=== PATIENT | female | born 1975 | race Caucasian/White ===

== ENCOUNTER 2018-04-07 14:46 | Emergency (ER) | payer MEDICAID, SELFPAY ==
[2018-04-07 14:46] VITALS: BP 109/69; PULSE 86; RESP 16; TEMP 37.7; O2SAT 99; BMI 31.5
--- NOTE | 2018-04-07 15:54 | ED.VISSUMM ---
- ER Visit Summary Date of Service: 04/07/18 Chief Complaint: Dental pain History of Present Illness: The patient is a [address] Rojo and Dr. Zurita. She reports that she had a root canal of her left mandibular second molar in June 2017 at the [facility]. She reports that she began having pain in that area yesterday. She was placed on clindamycin and is now had 6 doses. States that this morning the area is swollen. She describes a throbbing pain is 10 out of 10 severity. Is worsened by eating. It is partially relieved by heating pad. She denies any fever, chills, nausea, or vomiting. Physical Examination: Vitals: Stable. Afebrile. Mouth: No trismus. No edema of the floor of the mouth. Pain with percussion of left mandibular second molar. There is no focal abscess. She does have soft tissue swelling of the left face. General: A&O x 3. NAD. Cardiovascular exam: Regular rate and rhythm, no murmur, rub or gallop. Respiratory exam: Clear to auscultation bilaterally. No wheezes or stridor. Abdominal exam: Soft, nontender, nondistended, normal bowel sounds. No peritoneal signs. Extremity: No clubbing, cyanosis, or edema. Emergency Department Course and Treatment: An OAR[facility] report was obtained which show she is only had one prescription for opiates in the past year despite going to pain management. Treatment Plan: Patient is treated with [place] and naproxen. She will be discharged with those medications. She is instructed to continue her clindamycin. Follow-up with her dentist as soon as possible. Return to the emergency department for any worsening symptoms. Disposition: To home in improved and stable condition. Impression: 1. Dental abscess. This note was generated with [employer] dictation software. It may contain incorrect words, spelling, and punctuation that were not noted in review of the chart prior to signing ED Disposition - Plan for ED Patient: Disposition: Home or Assisted Living Chief Complaint: Dental Instructions: ED Abscess Dental Prescriptions: Hydrocodone/Acetaminophen [[place] 5-325 Tablet] 1 - 2 each PO 4X/DAY PRN PRN 5 Days #20 tablet PRN Reason: Pain Naproxen [Naprosyn] 500 mg PO BID #14 tablet Referrals: Dentist,Your [STAFF PHYSICIAN] - As soon as possible
[2018-04-07] MEDS: Naproxen 250 MG Tablet 500 MG PO (16:04)
[2018-04-07] MEDS: HYDROcodone Bitartrate/Apap 5/325 Tablet PO (16:04)
[2018-04-07 16:10] VITALS: RESP 18
== END 2018-04-07 16:10 | disposition home or self-care (01) ==
LOC: ED 16:04
PROVIDERS: Emergency Provider Emergency Medicine
DX: K04.7 Periapical abscess without sinus (principal); Z72.0 Tobacco use
CPT/HCPCS: 99283

== ENCOUNTER 2018-04-17 13:48 | Emergency (ER) | payer MEDICAID, SELFPAY ==
--- NOTE | 2018-04-17 13:48 | DT_ITS ---
This patient was seen during an EMR downtime April 12, 2018 - April 19, 2018. This patient may have a combination of paper and electronic documentation or all paper documentation. All documentation is viewable within the e-chart portion of [email or web address] for each patient visit.
== END 2018-04-17 14:20 | disposition home or self-care (01) ==
LOC: ED 04-18 13:50
PROVIDERS: Emergency Provider Emergency Medicine
DX: K04.7 Periapical abscess without sinus (principal)
CPT/HCPCS: 41800; 99282

== ENCOUNTER 2018-04-29 00:11 | Emergency (ER) | payer MEDICAID, SELFPAY ==
[2018-04-29 00:13] VITALS: BP 134/57; PULSE 102; RESP 17; TEMP 36.9; O2SAT 99; BMI 32.9
--- NOTE | 2018-04-29 01:54 | ED.VISSUMM ---
- ER Visit Summary Date of Service: 04/29/18 Chief Complaint: Facial abscess History of Present Illness: The patient is a 42 F presenting with facial abscess for several weeks. She states initially she had her wisdom teeth removed over a month ago. She developed an intraoral abscess. This was treated with 2 courses of clindamycin. She then developed an abscess to the left lower face. She has no fever. No other complaints. Physical Examination: Vitals are stable. Patient is afebrile. Alert no acute distress. HEENT exam is 5 cm abscess left lower face with fluctuance. No intraoral fluctuance. No sublingual edema Lungs are clear and equal bilaterally. Heart is regular rate and rhythm. Abdomen is soft nontender nondistended. Extremities are unremarkable. Skin is warm and dry. No focal neurologic deficit. Remainder of exam is unremarkable. Emergency Department Course and Treatment: Incision and drainage was performed. Anesthetized with lidocaine. Incised with 11 blade. Large amount of pus was drained. Probed to break up loculations. Irrigated with saline. She is given a prescription for Bactrim. She is allergic to Keflex. Advised to watch closely for worsening infection. Advised return to ED if worsening complaints. Disposition: Discharge home Impression: Facial abscess, incision and drainage This note was generated with [email or web address] dictation software. It may contain incorrect words, spelling, and punctuation that were not noted in review of the chart prior to signing ED Disposition - Plan for ED Patient: Chief Complaint: Abscess Instructions: ED Abscess IandD Prescriptions: Smz/Tmp Ds [Bactrim Ds] 1 tablet PO BID #14 tablet Referrals: Angela Whitman DO [Primary Care Provider] -
--- NOTE | 2018-04-29 01:56 | ED.DEP ---
ED Disposition - Plan for ED Patient: Chief Complaint: Abscess Instructions: ED Abscess IandD Prescriptions: Smz/Tmp Ds [Bactrim Ds] 1 tablet PO BID #14 tablet Referrals: Angela Whitman DO [Primary Care Provider] -
[2018-04-29] MEDS: Smz/Tmp Ds Tablet 1 TABLET PO (02:06)
[2018-04-29 02:07] VITALS: BP 121/87; PULSE 68; RESP 17; O2SAT 98
== END 2018-04-29 02:09 | disposition home or self-care (01) ==
PROVIDERS: Emergency Provider Emergency Medicine
DX: L02.01 Cutaneous abscess of face (principal); B96.89 Other specified bacterial agents as the cause of diseases classified elsewhere; Z72.0 Tobacco use
CPT/HCPCS: 10060; 99282

== ENCOUNTER 2019-01-29 06:00 | Emergency (ER) | payer MEDICAID, SELFPAY ==
[2019-01-29 06:01] VITALS: BP 151/88; PULSE 99; RESP 15; TEMP 36.9; O2SAT 98; BMI 34.2
--- NOTE | 2019-01-29 06:11 | CT_ITS ---
STUDY: CT ABDOMEN AND PELVIS WITHOUT CONTRAST REASON FOR EXAM: Female, 43 years old. RT SIDE BACK PAIN, PAIN MANAGEMENT TX NOT HELPING. RADIATION DOSAGE (If Supplied By Facility): CTDIvol = ( 19.74 ) mGy, DLP = ( 961.52 ) mGycm TECHNIQUE: Transaxial images were obtained from the dome of the diaphragm to the symphysis pubis without oral contrast, and without intravenous contrast. Sagittal and coronal images were reconstructed. Individualized dose optimization techniques were used for this CT. COMPARISON: June 30, 2017 FINDINGS: The visualized lung bases are unremarkable. The visualized portions of the heart are within normal limits. Normal liver. There are surgical clips in the gallbladder fossa consistent with a prior cholecystectomy. Normal spleen. Normal pancreas. Normal bilateral adrenal glands. Normal right kidney. There are up to 3 mm calcifications of the left kidney. Normal visualized stomach. Normal small intestine. There are surgical sutures at the right colon. There is non-visualization of the appendix. Normal abdominal aorta. Normal inferior vena cava. Normal retroperitoneum. Normal urinary bladder. There is a leiomyomatous uterus. There is enlargement of the right adnexal region as compared to the left (axial image #129 series 2) Normal abdominal wall. There are diffuse degenerative changes of the visualized lumbar spine. CT/Abdomen/Pelvis without Cont IMPRESSION: Small left renal calculi. Right adnexal enlargement. Leiomyomatous uterus. Further evaluation with pelvic sonography is recommended. Electronically Signed: Paolmo Brown MD at 8:22 EDT Tel , Service support ,
--- NOTE | 2019-01-29 06:24 | ED.VISSUMM ---
- ER Visit Summary Date of Service: 01/29/19 Chief Complaint: [Flank pain] History of Present Illness: The patient is a 43 F [presents the emergency department with right-sided flank pain times 2 days. Patient rates her pain a 10 out of 10. Patient has a history of some chronic back pain issues and often times will get muscle spasms for which she gets injections from pain management. Patient also has Flexeril at home but it has been unable to relieve her symptoms this time. Patient describes the pain now radiating to the front of the abdomen and hip and as well as on the front of her right leg. Patient denies urinary symptoms. She denies fever. He is never had pain like this before.] Physical Examination: [HEENT-PERRLA, EOMI. Cranial nerves II through XII grossly intact. TMs clear. Mucous membranes moist. No adenopathy. Cardiovascular-regular rate and rhythm without murmur or ectopy Lungs-clear to auscultation, chest wall stable without crepitus or subcu emphysema Abdomen-normoactive bowel sounds, soft, nontender, no rebound or rigidity, no peritoneal signs. Patient does have CVA tenderness on the right. Back exam-patient has some tenderness palpation over the lumbar paraspinal muscular on the right. Negative straight leg raises. Deep tendon reflexes are plus 2 out of 4 bilaterally at the patella and Achilles. Patient has normal L5 extension bilaterally. Patient has normal sensation to light touch. Extremities-intact ?4, normal range of motion, normal pulses, atraumatic] Test Results: [CBC with differential was unremarkable. Urinalysis unremarkable.] Emergency Department Course and Treatment: [Patient was medicated with morphine and Zofran. Care of patient turned over the morning physician awaiting lab results and CT results and final disposition] Treatment Plan: Pending] Disposition: [Pending] Impression: [Flank pain] This note was generated with [employer] dictation software. It may contain incorrect words, spelling, and punctuation that were not noted in review of the chart prior to signing ED Disposition - Plan for ED Patient: Referrals: Angela Whitman DO [Primary Care Provider] -
[2019-01-29 06:30] LABS: Bacteria 0 SEEN /hpf (None Seen)
[2019-01-29 06:33] LABS: Color, Urine Yellow (Yellow); Glucose, Dipstick Normal (Normal); Ketone-Dipstick 5 mg/dl (Negative); Leukocyte Esterase-Dipstick 100 /ul (Negative); Nitrite-Dipstick Negative (Negative); Occult Blood-Urine 10 /ul (Negative); Protein-Dipstick Negative (Negative); Urine Clarity Sl. Cloudy (Clear); Urine Urobilinogen 1 mg/dl (Normal)
[2019-01-29] MEDS: Ondansetron 4 MG/2 ML Vial IV (06:41)
[2019-01-29 06:42] LABS: Absolute Lymphocyte Count 1.79 X10^3/ul (0.83-4.51); Absolute Neutrophil Count 3.7 X10^3/uL (2.0-7.7); Basophil# 0.03 X10^3/uL; Basophil% 0.5 % (0-1); Eosinophil# 0.08 X10^3/uL; Eosinophils% 1.3 % (0-5); Hematocrit 40.5 % (37-47); Lymphocyte # 1.79 X10^3/ul (4.0); Lymphocyte % 29.5 % (19-41); Mean Corp Hgb Conc 34.6 g/gl (32-36); Mean Corpuscular Hgb 30.5 pg (27.0-32.0); Mean Corpuscular Volume 88.2 fL (81-99); Mean Platelet Vol. 10.3 fl (6.2-12.0); Monocyte# 0.44 X10^3/uL; Monocyte% 7.2 % (0-10); Neutrophil # 3.73 X10^3/uL (2.7-7.7); Neutrophil % 61.5 % (47-70); POSITIVE COUNT NO; POSITIVE DIFFERENTIAL NO; POSITIVE MORPHOLOGY NO; Platelet Count 199 K/mm3 (150-450); RBC Distribution Width CV 13.8 % (11.6-14.6); RBC Distribution Width SD 44.3 fl (35.1-43.9); Red Blood Count 4.59 M/mm3 (4.2-5.4); White Blood Count 6.1 K/mm3 (4.4-11.0)
[2019-01-29] MEDS: Ketorolac 30 MG/ML Syringe IV (06:42)
[2019-01-29] MEDS: Morphine 4 MG/ML Syringe IV (06:44)
[2019-01-29] MEDS: 0.9% Normal Saline 1,000 ML 125 ML IV (06:45)
[2019-01-29 06:48] LABS: Urine Bilirubin Dipstick 1 mg/dL (Negative)
[2019-01-29 06:49] LABS: Squamous Epithelial Cells - UA 0-5 SEEN /hpf (5-10); Transitional Epithelial - Ur 0 SEEN /hpf (0-5)
[2019-01-29 06:50] LABS: White Blood Cells 0-5 SEEN /hpf (0-5)
[2019-01-29 06:51] LABS: Red Blood Cells-Urine 0-5 SEEN /hpf (0-5); Yeast-Urine RARE /hpf (None Seen)
[2019-01-29 06:52] LABS: Mucous, Urine RARE /hpf (<or=2+)
[2019-01-29 06:57] LABS: Anion Gap 8 (5-15); BUN 14 mg/dL (7-18); BUN/Creat Ratio 16.3 RATIO (10-20); Calcium,Total 8.4 mg/dL (8.5-10.1); Chloride 107 mmol/L (98-107); Creatinine, Serum 0.86 mg/dL (0.55-1.02); EST Glomerular Filtration Rate 78 mL/min (>60); Est Glom Filt Rate - Afr Amer 94 mL/min (>60); Estimated Creatinine Clearance 77.46 ml/min; Glucose 98 mg/dL (74-106); Potassium 3.6 mmol/L (3.5-5.1); Sodium Level 140 mmol/L (136-145)
[2019-01-29 07:25] LABS: Pregnancy, Serum, hCG Quali. NEGATIVE Negative (0-9 Nonpreg)
--- NOTE | 2019-01-29 09:00 | US_ITS ---
STUDY: ULTRASOUND OF THE FEMALE PELVIS - COMPLETE REASON FOR EXAM: Female, [address] scan. Right adnexal enlargement. LMP: 01/09/2019 TECHNIQUE: Transabdominal and Transvaginal TECHNICAL QUALITY: Adequate. COMPARISON: CT scan of the same day.. FINDINGS: The uterus is anteverted and is in a midline position. The uterus measures 8.1 x 6.4 x 5.7 cm. Normal uterine cervix. The endometrium measures 12 mm in thickness, and is hyperechoic. There is no demonstrated endometrial mass. Generalized heterogeneity is seen of the myometrium consistent with diffuse fibroid change. There are also 2 fibroids of the right uterus measuring 1.8 and 2.0 cm. The right ovary is visualized. The right ovary measures 4.8 x 3.0 x 2.2 cm. There is a 2.5 cm complex cystic mass, likely a hemorrhagic cyst. There is no visualized right adnexal mass or complex lesion. There is normal arterial and normal venous vascularity. The left ovary is visualized. The left ovary measures 3.0 x 2.6 x 2.6 cm. There is a 2.1 cm cyst. There is no visualized left adnexal mass or complex lesion. There is normal arterial and normal venous vascularity. There is no fluid in the cul-de-sac. US/Transvaginal Non- IMPRESSION: Fibroid uterus. Diffuse fibroid changes along with focal fibroids as much as 2.1 cm. Cysts in both ovaries. The one on the right is complex. Follow-up in one or 2 menstrual periods recommended. Electronically Signed: Joo Cuevas MD at 10:40 EDT , Service support ,
[2019-01-29 09:54] VITALS: BP 142/76; PULSE 83; RESP 16; O2SAT 99
[2019-01-29 10:43] VITALS: BP 124/73; PULSE 71; RESP 14; O2SAT 97
--- NOTE | 2019-01-29 10:51 | ED.VISSUMM ---
- ER Visit Summary Date of Service: 01/29/19 Chief Complaint: [] History of Present Illness: The patient is a 43 F [] Physical Examination: [] Test Results: [] Emergency Department Course and Treatment: Patient signed out to me follow-up on CT scan. Reevaluate patient prior to skin results more comfortable after her pain treatments. There is no renal stones. History concerns for sciatica symptoms. She had similar symptoms in the past followed by Dr. Ivy last time with injections was 3 months ago which did help her symptoms. She is on NSAIDs and muscle relaxers. Around flank CT no obstructive uropathy the noted right adnexal mass. She is not tender in this region however she does have low back pain. They recommended ultrasound which was obtained noted uterine fibroids and bilateral ovarian cysts greatest size 2.5 cm in the right with complex per radiology. Discussed findings with the patient she was given follow-up with [facility] along with her pain physician. All questions were answered. Treatment Plan: [] Disposition: Discharge Impression: 1. Sciatica 2. Uterine fibroid 3. Ovarian cyst This note was generated with [employer] dictation software. It may contain incorrect words, spelling, and punctuation that were not noted in review of the chart prior to signing ED Disposition - Plan for ED Patient: Disposition: Home or Assisted Living Diagnosis: Sciatica, Uterine fibroid, Ovarian cyst Instructions: ED Sciatica, ED Fibroids, ED Cyst Ovarian Referrals: Angela Whitman DO [Primary Care Provider] - Aaron Ivy [NON-STAFF] - 3-5 Days Nadege Otto MD [STAFF PHYSICIAN] - 5-7 Days
--- NOTE | 2019-01-29 10:54 | ED.DCSUM_ITS ---
- ER Visit Summary Date of Service: 01/29/19 Chief Complaint: [] History of Present Illness: The patient is a 43 F [] Physical Examination: [] Test Results: [] Emergency Department Course and Treatment: Patient signed out to me follow-up on CT scan. Reevaluate patient prior to skin results more comfortable after her pain treatments. There is no renal stones. History concerns for sciatica symptoms. She had similar symptoms in the past followed by Dr. Ivy last time with injections was 3 months ago which did help her symptoms. She is on NSAIDs and muscle relaxers. Around flank CT no obstructive uropathy the noted right adnexal mass. She is not tender in this region however she does have low back pain. They recommended ultrasound which was obtained noted uterine fibroids and bilateral ovarian cysts greatest size 2.5 cm in the right with complex per radiology. Discussed findings with the patient she was given follow-up with [facility] APPRENTICE along with her pain physician. All questions were answered. Treatment Plan: [] Disposition: Discharge Impression: 1. Sciatica 2. Uterine fibroid 3. Ovarian cyst This note was generated with [employer] dictation software. It may contain incorrect words, spelling, and punctuation that were not noted in review of the chart prior to signing ED Disposition - Plan for ED Patient: Disposition: Home or Assisted Living Diagnosis: Sciatica, Uterine fibroid, Ovarian cyst Instructions: ED Sciatica, ED Fibroids, ED Cyst Ovarian Referrals: Angela Whitman DO [Primary Care Provider] - Aaron Ivy [NON-STAFF] - 3-5 Days Nadege Otto MD [STAFF PHYSICIAN] - 5-7 Days
[2019-01-29 11:13] VITALS: BP 119/84; PULSE 70; RESP 16
== END 2019-01-29 11:14 | disposition home or self-care (01) ==
PROVIDERS: Emergency Medicine; Emergency Provider Emergency Medicine
DX: M54.40 Lumbago with sciatica, unspecified side (principal); N83.202 Unspecified ovarian cyst, left side; N83.201 Unspecified ovarian cyst, right side; D25.9 Leiomyoma of uterus, unspecified; Z72.0 Tobacco use
CPT/HCPCS: 74176; 76830; 80048; 81001; 84703; 85025; 87086; 87088; 93976; 96361; 96374; 96375; 99284; J7030; A4216; J2405

== ENCOUNTER → 2019-03-03 13:14 | Outpatient (CLI) | payer MEDICAID, SELFPAY ==
--- NOTE | 2019-03-03 13:16 | BI_ITS ---
MAMMOGRAPHY - BILATERAL SCREENING 3-D TOMOSYNTHESIS REASON FOR EXAM: Female, 43 years old. Bilateral Screening 3-D tomosynthesis PERTINENT HISTORY: Paternal aunt. TECHNIQUE: 2-D mammograms and 3-D Tomosynthesis of the breast (s) were performed. CAD was performed. COMPARISON: 09/15/2017 FINDINGS: The breast composition is composed of scattered fibroglandular density. Scattered benign calcifications are seen. No dense spiculated masses or suspicious microcalcifications are identified. No architectural distortion is identified. There is no skin thickening or retraction. There has been no significant change since the prior study. BI/SCREENING MAMM (CAD), BILAT IMPRESSION: No mammographic signs of malignancy. Routine yearly mammograms recommended. ASSESSMENT CATEGORY: BIRADS Category 1: Negative. A letter regarding these results will be sent to the patient by the facility within 30 days. FOLLOW UP RECOMMENDATION: Yearly follow up mammogram recommended. (A) Approximately 10% of breast cancers are not detected by mammography. A normal mammogram should not delay biopsy of a clinically suspicious abnormality. Electronically Signed: Sven Crawford MD at 14:53 EDT , Service support ,
== END ==
DX: Z12.31 Encounter for screening mammogram for malignant neoplasm of breast (principal)
CPT/HCPCS: 77063; 77067

== ENCOUNTER 2019-06-15 08:13 | Emergency (ER) | payer MEDICAID, SELFPAY ==
[2019-06-15 08:14] VITALS: BP 132/113; PULSE 96; RESP 22; TEMP 36.6; O2SAT 98; BMI 34.9
--- NOTE | 2019-06-15 08:22 | CT_ITS ---
STUDY: CT ABDOMEN AND PELVIS WITH CONTRAST REASON FOR EXAM: Female, 43 years old. Epigastric pain. RADIATION DOSAGE (If Supplied By Facility): CTDIvol = ( 19.64 ) mGy, DLP = ( 1158.89 ) mGycm TECHNIQUE: Transaxial images were obtained from the dome of the diaphragm to the symphysis pubis with oral contrast. 100 IV/Oral Isovue 300 was administered. Sagittal and coronal images were reconstructed. Individualized dose optimization techniques were used for this CT. COMPARISON: None. FINDINGS: The visualized lung bases are unremarkable. The visualized portions of the heart are within normal limits. There is decreased attenuation of the liver consistent with steatosis. There are surgical clips in the gallbladder fossa consistent with a prior cholecystectomy. Normal spleen. Normal pancreas. Normal bilateral adrenal glands. Normal right kidney. 2.5 mm calculus in the lower pole calyx of the left kidney. There is a small hiatal hernia. Normal small intestine. Surgical clips are seen in the region of the cecum. Large amount of fecal material is seen in the cecum. There is non-visualization of the appendix. Normal abdominal aorta. Normal inferior vena cava. Normal retroperitoneum. Normal urinary bladder. The endometrium is thickened and measures 2.5 cm. Questionable ESSURE device in the right fallopian tube. The right ovary measures 3.5 cm x 4.5 cm. A dominant follicle is seen within. Follicles are also seen in the left ovary. Normal abdominal wall. Normal osseous structures. CT/Abdomen/Pelvis WITH Contrast IMPRESSION: Fatty infiltration of the liver. 2.5 mm nonobstructive calculus in the lower pole calyx of the left kidney. Surgical clips are seen in the region of the cecum. Follicles are seen in both ovaries. Electronically Signed: Bob Caceres, at 10:24 EDT , Service support ,
--- NOTE | 2019-06-15 08:23 | ED.DCSUM_ITS ---
History of Present Illness Chief Complaint: Abd Pain Informant: Patient Onset: Today Context: Gradual Onset Current Severity: Moderate Maximum Severity: Severe Narrative: Patient states that she woke this morning with upper abdominal pain. She felt fine when she went to bed last evening. She denies vomiting or diarrhea. She feels clammy but has not measured a fever. Past surgical history significant for prior cholecystectomy and partial bowel resection. Last menstrual cycle was end of May. Past Medical History - Allergies and Home Meds Allergies/Adverse Reactions: Allergies cefaclor [From Ceclor] Allergy (Verified 06/15/19 08:16) Hives cephalexin monohydrate [From Keflex] Allergy (Verified 06/15/19 08:16) Hives Penicillins [PCN] Allergy (Verified 06/15/19 08:16) Hives Primary Care Physician: Angela Whitman DO [Primary Care Provider] - Prior records reviewed: Yes Past Medical History: - - Reviewed Surgical History: cholecystectomy Smoking Status: Current every day smoker Review of Systems General: Denies: Chills, Fever Eyes: Denies: Visual changes - bilaterally ENT: Denies: Bilateral ear pain Cardiovascular: Denies: Chest pain Respiratory: Denies: Dyspnea Gastrointestinal: Reports: Abdominal pain. Denies: Nausea, Vomiting, Diarrhea Genitourinary: Denies: Dysuria, Hematuria Musculoskeletal: Denies: Neck pain, Back pain Neurological: Denies: Headache Endocrine: Denies: Polyuria, Polydipsia Hematologic: Denies: Easy bruising Allergy: Denies: Uticaria Physical Exam Vital Signs/Narrative: Vital Signs Temp Pulse Resp BP Pulse Ox 06/15/19 08:14 98 F 96 22 H 132/113 H 98 Inital Vital Signs reviewed: Yes General: Well nourished, Well developed ENT: Moist mucous membranes Cardiovascular: Regular rate, Regular rhythm Respiratory: No distress, CTA bilaterally Abdomen: Soft, Tender - Epigastric tenderness to palpation.. Negative for: Nontender, Nondistended Extremities: Nontender Skin: Normal color Neurological: Alert, Oriented x3 Psychological: - - Anxious Diagnostic/Tx/Re-eval Impressions Abdomen/Pelvis CT 06/15/19 08:22 IMPRESSION: Fatty infiltration of the liver. 2.5 mm nonobstructive calculus in the lower pole calyx of the left kidney. Surgical clips are seen in the region of the cecum. Follicles are seen in both ovaries. Electronically Signed: Bob Caceres, at 10:24 EDT , Service support , 06/15/19 08:22 Abdomen/Pelvis WITH Contrast [CT] Stat Laboratory Results 06/15/19 06/15/19 06/15/19 08:50 08:54 08:54 WBC 8.3 RBC 4.66 Hgb 14.1 Hct 41.8 MCV 89.7 MCH 30.3 MCHC 33.7 RDW Std Deviation 44.0 H RDW Coeff of Camron 13.4 Plt Count 217 MPV 10.4 Immature Gran % (Auto) 0.200 Neut % (Auto) 73.2 H Lymph % (Auto) 18.4 L [place] % (Auto) 6.8 Eos % (Auto) 1.0 Baso % (Auto) 0.4 Absolute Neuts (auto) 6.1 Absolute Lymphs (auto) 1.52 Nucleated RBC % 0 Sodium 138 Potassium 4.6 Chloride 107 Carbon Dioxide 24.0 Anion Gap 7 BUN 12 Creatinine 0.86 Estim Creat Clear Calc 77.46 Est GFR (MDRD) Af Amer 93 Est GFR (MDRD) Non-Af 77 BUN/Creatinine Ratio 13.9 Glucose 101 Calcium 8.4 L Total Bilirubin 0.30 Direct Bilirubin 0.06 AST 28 ALT 30 Alkaline Phosphatase 65 Total Protein 6.8 Albumin 3.5 Globulin 3.3 Lipase 172 Serum , Qual Urine Color Yellow Urine Clarity Sl. Cloudy Urine pH 7.0 Ur Specific [place] 1.010 Urine Protein Negative Urine Glucose (UA) Normal Urine Ketones Negative Urine Occult Blood 10 H Urine Nitrite Negative Urine Bilirubin Negative Urine Urobilinogen Normal Ur Leukocyte Esterase 500 H Urine RBC 0 SEEN Urine WBC 5-10 SEEN Ur Squamous Epith Cells 10-25 SEEN Urine Bacteria 1+ Urine Mucus 0 SEEN Urine Yeast 2+ 06/15/19 08:54 WBC RBC Hgb Hct MCV MCH MCHC RDW Std Deviation RDW Coeff of Camron Plt Count MPV Immature Gran % (Auto) Neut % (Auto) Lymph % (Auto) [place] % (Auto) Eos % (Auto) Baso % (Auto) Absolute Neuts (auto) Absolute Lymphs (auto) Nucleated RBC % Sodium Potassium Chloride Carbon Dioxide Anion Gap BUN Creatinine Estim Creat Clear Calc Est GFR (MDRD) Af Amer Est GFR (MDRD) Non-Af BUN/Creatinine Ratio Glucose Calcium Total Bilirubin Direct Bilirubin AST ALT Alkaline Phosphatase Total Protein Albumin Globulin Lipase Serum , Qual NEGATIVE Urine Color Urine Clarity Urine pH Ur Specific [place] Urine Protein Urine Glucose (UA) Urine Ketones Urine Occult Blood Urine Nitrite Urine Bilirubin Urine Urobilinogen Ur Leukocyte Esterase Urine RBC Urine WBC Ur Squamous Epith Cells Urine Bacteria Urine Mucus Urine Yeast - Medical Decision Making Patient was given morphine, Zofran, and IV fluids. On repeat evaluation she is resting comfortably. She does report some improvement although pain is not completely resolved. Test results were discussed with her. She will be given a dose of Diflucan prior to discharge as she does have yeast noted in her urine. I do not believe this is causing her upper abdominal pain. She will be given a prescription for Bentyl as well as Prilosec. She has an appointment scheduled with her PCP in 2 weeks. ED Disposition - Plan for ED Patient: Disposition: Home or Assisted Living Diagnosis: Epigastric pain Instructions: EPIGASTRIC PAIN (Uncertain cause) Prescriptions: Dicyclomine HCl [Bentyl] 20 mg PO TIDAC #20 capsule Omeprazole [Prilosec] 20 mg PO DAILY #30 capsule Referrals: Angela Whitman DO [Primary Care Provider] - Keep Elisabeth appointment
[2019-06-15 08:54] LABS: Mucous, Urine 0 SEEN /hpf (<or=2+); Red Blood Cells-Urine 0 SEEN /hpf (0-5)
[2019-06-15 08:58] LABS: Color, Urine Yellow (Yellow); Glucose, Dipstick Normal (Normal); Ketone-Dipstick Negative (Negative); Leukocyte Esterase-Dipstick 500 /ul (Negative); Nitrite-Dipstick Negative (Negative); Occult Blood-Urine 10 /ul (Negative); Protein-Dipstick Negative (Negative); Urine Bilirubin Dipstick Negative (Negative); Urine Clarity Sl. Cloudy (Clear); Urine Urobilinogen Normal (Normal)
[2019-06-15] MEDS: Ondansetron 4 MG/2 ML Vial IV (09:00)
[2019-06-15] MEDS: 0.9% Normal Saline 1,000 ML 150 ML IV (09:00)
[2019-06-15] MEDS: Morphine 4 MG/ML Syringe IV (09:01)
[2019-06-15 09:07] LABS: Absolute Lymphocyte Count 1.52 X10^3/uL (0.83-4.51); Absolute Neutrophil Count 6.1 X10^3/uL (2.0-7.7); Basophil# 0.03 X10^3/uL; Basophil% 0.4 % (0-1); Eosinophil# 0.08 X10^3/uL; Hematocrit 41.8 % (37-47); Hemoglobin 14.1 g/dL (12.0-15.0); Lymphocyte # 1.52 X10^3/ul (4.0); Lymphocyte % 18.4 % (19-41); Mean Corp Hgb Conc 33.7 g/dL (32-36); Mean Corpuscular Hgb 30.3 pg (27.0-32.0); Mean Corpuscular Volume 89.7 fL (81-99); Mean Platelet Vol. 10.4 fl (6.2-12.0); Monocyte# 0.56 X10^3/uL; Monocyte% 6.8 % (0-10); NRBC Flagged by Analyzer 0 % (0-5); Neutrophil # 6.05 X10^3/uL (2.7-7.7); Neutrophil % 73.2 % (47-70); Platelet Count 217 K/mm3 (150-450); RBC Distribution Width CV 13.4 % (11.6-14.6); Red Blood Count 4.66 M/mm3 (4.2-5.4); White Blood Count 8.3 K/mm3 (4.4-11.0)
[2019-06-15 09:12] LABS: Bacteria 1+ /hpf (None Seen); Squamous Epithelial Cells - UA 10-25 SEEN /hpf (5-10); White Blood Cells 5-10 SEEN /hpf (0-5)
[2019-06-15 09:13] LABS: Yeast-Urine 2+ /hpf (None Seen)
[2019-06-15 09:26] LABS: AST(SGOT) 28 U/L (15-37); Alanine Aminotransfer ALT/SGPT 30 U/L (13-56); Albumin, Serum 3.5 g/dL (3.2-5.0); Alkaline Phosphatase 65 U/L (45-117); Anion Gap 7 (5-15); BUN 12 mg/dL (7-18); BUN/Creat Ratio 13.9 RATIO (10-20); Bilirubin, Direct 0.06 mg/dL (0.00-0.30); Calcium,Total 8.4 mg/dL (8.5-10.1); Chloride 107 mmol/L (98-107); Creatinine, Serum 0.86 mg/dL (0.55-1.02); EST Glomerular Filtration Rate 77 mL/min (>60); Est Glom Filt Rate - Afr Amer 93 mL/min (>60); Estimated Creatinine Clearance 77.46 ml/min; Globulin 3.3 g/dL (2.2-4.2); Glucose 101 mg/dL (74-106); Lipase 172 U/L (73-393); Potassium 4.6 mmol/L (3.5-5.1); Protein, Total 6.8 g/dL (6.4-8.2); Sodium Level 138 mmol/L (136-145)
[2019-06-15 09:44] LABS: Internal QC Validated? YES +Cl - CLEAR BKGD; Pregnancy, Serum, hCG Quali. NEGATIVE Negative
[2019-06-15] MEDS: Fluconazole 100 MG Tablet 200 MG PO (11:03)
[2019-06-15 11:08] VITALS: BP 132/67; PULSE 71; RESP 15; O2SAT 98
== END 2019-06-15 11:09 | disposition home or self-care (01) ==
PROVIDERS: Emergency Provider Emergency Medicine
DX: R10.13 Epigastric pain (principal); R23.1 Pallor; N20.0 Calculus of kidney; K76.0 Fatty (change of) liver, not elsewhere classified; Z90.49 Acquired absence of other specified parts of digestive tract; F17.200 Nicotine dependence, unspecified, uncomplicated
CPT/HCPCS: 74177; 80048; 80076; 81001; 83690; 84703; 85025; 96361; 96374; 96375; 99284; J7030; Q9967; A4216; J2405

== ENCOUNTER → 2019-07-02 10:10 | Outpatient (CLI) | payer MEDICAID, SELFPAY ==
[2019-06-15 08:14] VITALS: BMI 34.9
--- NOTE | 2019-07-02 10:28 | RAD_ITS ---
STUDY: X-RAY - LUMBAR SPINE REASON FOR EXAM: Female, 43 years old. Radiculopathy TECHNIQUE: 5 view(s) of the lumbar spine were obtained. COMPARISON: None FINDINGS: Normal lumbar lordosis. There is no substantial scoliosis. There is a normal alignment of the vertebrae. Mild spondylosis. Multilevel facet arthropathy predominantly at L4-L5 and L5-S1. Normal disc space heights. There is no demonstrated fracture. There is no demonstrated spondylolysis of the pars interarticulares. There are cholecystectomy clips and surgical sutures in the right lower quadrant. RAD/L/S Spine Min 4 Views IMPRESSION: 1. Facet dominant degenerative changes in the lower lumbar spine Electronically Signed: Alistair Rojo MD ([place]) at 12:51 EDT , Service support ,
--- NOTE | 2019-07-02 10:29 | RAD_ITS ---
STUDY: X-RAY - THORACIC SPINE REASON FOR EXAM: Female, 43 years old. Radiculopathy TECHNIQUE: 3 view(s) of the thoracic spine were obtained. COMPARISON: None. FINDINGS: Normal kyphosis of the thoracic spine. There is no substantial scoliosis. There is multilevel endplate spondylosis of the thoracic vertebrae. There is multilevel disc space narrowing of the thoracic spine. The soft tissue structures are unremarkable. RAD/Thoracic Spine 3 Views IMPRESSION: Degenerative disc disease and spondylosis. Electronically Signed: Alistair Rojo MD ([place]) at 12:51 EDT , Service support ,
== END ==
PROVIDERS: Referring Provider Nurse Practitioner Family; Visit Provider Nurse Practitioner Family
DX: M48.9 Spondylopathy, unspecified (principal); M51.34 Other intervertebral disc degeneration, thoracic region; M54.14 Radiculopathy, thoracic region; M47.814 Spondylosis without myelopathy or radiculopathy, thoracic region; M46.96 Unspecified inflammatory spondylopathy, lumbar region; M51.37 Other intervertebral disc degeneration, lumbosacral region; M54.17 Radiculopathy, lumbosacral region
CPT/HCPCS: 72072; 72110

== ENCOUNTER 2019-08-23 16:45 | Emergency (ER) | payer MEDICAID, SELFPAY ==
[2019-08-23 16:46] VITALS: BP 135/70; PULSE 118; RESP 16; TEMP 37.6; O2SAT 97; BMI 34.7
[2019-08-23 17:54] VITALS: BP 116/80
--- NOTE | 2019-08-23 18:34 | ED.VISSUMM ---
- ER Visit Summary Date of Service: 08/23/19 Chief Complaint: Back pain History of Present Illness: The patient is a 43 F presenting with back pain. She states this has been ongoing for the past 3 weeks. She was seen by pain management today. She states that they are working with her insurance to get injections approved. She is on Flexeril and diclofenac at home. She complains of persistent pain. She called pain management back this afternoon and was advised to come to the ED for evaluation. She has right lower back pain radiating to her right leg. She denies numbness or weakness. No bowel or bladder incontinence. No other complaints. Physical Examination: Vitals are stable. Patient is afebrile. Alert no acute distress. HEENT exam is unremarkable. Neck is supple. Lungs are clear and equal bilaterally. Heart is regular rate and rhythm. Abdomen is soft nontender nondistended. Back: right lower paraspinal lumbar tenderness, no midline tenderness. Straight leg raise positive 30 degrees on right Extremities are unremarkable. Skin is warm and dry. No focal neurologic deficit. Normal strength and sensation Remainder of exam is unremarkable. Emergency Department Course and Treatment: Patient was given morphine, Zofran IM. She is advised to follow-up with pain management. Advised return to ED for worsening complaints. Disposition: Discharge home Impression: Back pain, sciatica This note was generated with [employer] dictation software. It may contain incorrect words, spelling, and punctuation that were not noted in review of the chart prior to signing ED Disposition - Plan for ED Patient: Instructions: BACK PAIN w/ SCIATICA Referrals: Angela Whitman DO [Primary Care Provider] -
[2019-08-23] MEDS: morphine 10 MG/ML Syringe IM (18:38)
[2019-08-23] MEDS: Ondansetron 4 MG/2 ML Vial IM (18:39)
[2019-08-23 18:43] VITALS: BP 141/73; RESP 18; O2SAT 99
== END 2019-08-23 19:01 | disposition home or self-care (01) ==
LOC: ED 19:01
PROVIDERS: Emergency Provider Emergency Medicine
DX: M54.41 Lumbago with sciatica, right side (principal); K21.9 Gastro-esophageal reflux disease without esophagitis; Z72.0 Tobacco use
CPT/HCPCS: 96372; 99283; J2405

== ENCOUNTER 2019-11-17 16:30 | Outpatient (RCR) | payer MEDICAID, SELFPAY ==
--- NOTE | 2019-09-26 18:01 | HP.PTEVAL ---
Patient's Visit Information DAVID CLAY is a 43 year old F referred to Physical Therapy by MARCIA Monterroso with a diagnosis of DEGENERATION OF LUMBOSACRAL INTERVERTEBRAL DISC,L-S RADICULOPATHY. Date of Evaluation: 09/26/19 Physical Therapist: Aaron Sow, PT, Cert MDT, OCS - Visit Plan Frequency: 2x /Week Duration: 4 Weeks Plan: PT INTERVETIONS WITH DLS ,POSTURAL EX'S,LE FLEXABLITY ,MODALTIES NEEDED - Subjective Findings: This 43 y/o female presents to physical therapy with LBP. Patient has LBP with h/o leg several years. Patient was in PT about 1 year which helped manage pain. Seen pain management had epidural injections 3 injection most recent last month,radifrequency ablasin. MD wants facet injection but needs PT . Pain located located on right . Aggravating factors bending ,lifting ,sits/stand extended periods.Alleviating factors ice/heat,flexeral. Denies parathesia/tingling. Coughing/sneezing +. Bowel/bladder-. Pain affects job demands ,housework task and ADL'S. Patient had x-rays. Patient syptoms affects QOL . VOCATION: [employer]. SOCIAL: - Pain Right Back Pain Intensity (Out of 10): 8 Pain Intensity Range: 10 - Objective POSTURE: mild foward posture. PALAPTION: tender L-S,paraspinals. NEURO: denies parathesia/tingling ,reflexes L3-4,L4-5,L5-S1 1/3. GAIT: reciprocal pattern. SYMMTRIES: align. LUMBAR ROM : flexion min loss,extension mod/severe loss,side glides mod loss. FLEXABLITY: hams min tight. MUSCULAR ENDURANCE: unable for ABDOMINALS - Special Tests L/S Slump test left side: Negative L/S Slump test right side: Negative L/S Left Straight Leg Raise: Negative L/S Right Straight Leg Raise: Negative Lumbar Standing: Flexion - Mechanical Response: No effect Lumbar Standing: Flexion - Symptoms After Testing: No effect Lumbar Standing: Extension - Mechanical Response: No effect Lumbar Standing: Extension - Symptoms During Testing: Increases Lumbar Standing: Extension - Symptoms After Testing: No worse Lumbar Standing: Right Side Glides - Mechanical Response: No effect Lumbar Standing: Right Side [place] - Symptoms During Testing: Increases Lumbar Standing: Right Side [place] - Symptoms After Testing: No worse Lumbar Standing: Left Side [place] - Mechanical Response: No effect Lumbar Standing: Left Side [place] - Symptoms During Testing: Increases Lumbar Standing: Left Side [place] - Symptoms After Testing: No worse - Goals Goal 1:: Independant with HEP. Goal Time Frame: 4-6 Weeks Goal 2:: Improve posture/body mechanics for JOB Demands. Goal Time Frame: 4-6 Weeks Goal 3:: Patient to decrease lumbar pain by 50% or > to improve QOL/function. Goal Time Frame: 4-6 Weeks Goal 4:: Patient improve lumbar ROM for function of recovery Goal Time Frame: 4-6 Weeks Goal 5:: Patient to improve back owestry score by 5 points or > to improve QOL. Goal Time Frame: 4-6 Weeks - Rehabilitation Potential Physical Therapy Diagnosis: This patient has lumbar pain worse left side with decrease lumbar ROM with pain especially extension,decrease muscular endurance strength impairs ADL's ,job demnads,housework tasks thus benifit from skilled PT Rehabilitation Potential: Good - Anticipated Interventions Patient/Client Instruction: Educate patient on: Condition, Plan of Care For the Purpose of:: To decrease pain, To increase ROM, To improve muscle performance and motor function, To improve ability to perform ADL's, To increase tolerance to activity/condition/position, To improve ability of physical actions for home/community/work/leisure, To improve health of tissue, To decrease soft tissue restriction, To increase flexibility/ROM, To reduce risk of recurrence, To improve ability to perform tasks related to life management Therapeutic Exercise to Include: Strength training, Body mechanics, Postural training, Flexibilty training, Dynamic Lumbar Stabilization For the Purpose of:: To decrease pain, To increase ROM, To improve muscle performance and motor function, To improve ability to perform ADL's, To increase tolerance to activity/condition/position, To improve ability of physical actions for home/community/work/leisure, To improve health of tissue, To decrease soft tissue restriction, To increase flexibility/ROM, To improve ability to perform tasks related to life management TENS: Yes IF ES: Yes Cryotherapy (ice pack, ice massage): Yes Thermo therapy (hot pack): Yes Ultrasound (thermal/non thermal): Yes For the Purpose of:: To decrease pain, To increase ROM, To improve nutrient delivery to tissue, To increase oxygenation perfusion, To improve health of tissue, To decrease soft tissue restriction Thank you for the opportunity to evaluate your patient. For Medicare and Medicare HMO plans, please review the plan of care and approve it. It will need to be FAXED BACK to us at [phone] for Medicare purposes. For Medicare only, by signing this I certify the plan of care. Please let me know if there are questions or concerns regarding this plan of care. Physician Signature: Date:
--- NOTE | 2020-01-27 09:18 | HP.PT.NRP ---
DAVID CLAY was seen in my office for initial evaluation on 09/26/19. The following Plan of Care was established for this patient: Initial Frequency: 2x /Week Initial Duration: 4 Weeks Patient/Client Instruction: Educate patient on: Condition, Plan of Care For the Purpose of:: To decrease pain, To increase ROM, To improve muscle performance and motor function, To improve ability to perform ADL's, To increase tolerance to activity/condition/position, To improve ability of physical actions for home/community/work/leisure, To improve health of tissue, To decrease soft tissue restriction, To increase flexibility/ROM, To reduce risk of recurrence, To improve ability to perform tasks related to life management Therapeutic Exercise to Include: Strength training, Body mechanics, Postural training, Flexibilty training, Dynamic Lumbar Stabilization For the Purpose of:: To decrease pain, To increase ROM, To improve muscle performance and motor function, To improve ability to perform ADL's, To increase tolerance to activity/condition/position, To improve ability of physical actions for home/community/work/leisure, To improve health of tissue, To decrease soft tissue restriction, To increase flexibility/ROM, To improve ability to perform tasks related to life management TENS: Yes IF ES: Yes Cryotherapy (ice pack, ice massage): Yes Thermo therapy (hot pack): Yes Ultrasound (thermal/non thermal): Yes For the Purpose of:: To decrease pain, To increase ROM, To improve nutrient delivery to tissue, To increase oxygenation perfusion, To improve health of tissue, To decrease soft tissue restriction This patient was last seen in our office 11/17/19. Pertinent comments regarding their Physical therapy will appear below: Patient seen for PT for DLS,HEP,postural ex's for low back pain. At this point I will be discontinuing this patient from physical therapy. I would be happy to see this patient again in the future if found appropriate by the physician. Thank you! Aaron Sow, PT, Cert MDT, OCS
== END 2019-11-17 19:00 | disposition home or self-care (01) ==
LOC: PT 16:30
PROVIDERS: Referring Provider Nurse Practitioner Family; Visit Provider Nurse Practitioner Family
DX: M54.17 Radiculopathy, lumbosacral region (principal); M47.817 Spondylosis without myelopathy or radiculopathy, lumbosacral region; M46.96 Unspecified inflammatory spondylopathy, lumbar region
CPT/HCPCS: 97110; 97162

== ENCOUNTER 2020-01-21 09:06 | Emergency (ER) | payer MEDICAID, SELFPAY ==
[2020-01-21 09:10] VITALS: BP 124/59; PULSE 84; RESP 17; TEMP 36.9; O2SAT 98; BMI 38.5
--- NOTE | 2020-01-21 09:44 | ED.DCSUM_ITS ---
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 Negative for: Vomiting - Diarrhea/Melena/Hematochezia GI Symptom: Diarrhea. Negative for: Melena, Hematochezia Onset: Days - 3-4 days Stool Quality: Loose, Watery Severity: Moderate Episodes: 5 Associated Symptoms: Negative for: Dysuria, Frequency, Hematuria, Urgency Narrative: 44-year-old female with a history of IBS presents to the emergency department with abdominal cramping and loose watery stool. Patient has chronic diarrhea from her IBS and states it is not worse. No melena or hematochezia. Normal urination. No fever. No travel no sick contacts no antibiotic use. She has had a significant outpatient work-up over the last several years and diagnosed with IBS. She has had CAT scans she has had colonoscopies all of that have been unremarkable. She uses Bentyl and Phenergan they have not controlled her symptoms. She has no vomiting or fever. No back pain. No chest pain or shortness of breath or upper respiratory symptoms. Prior similar symptoms: Yes Recent Illness/Hospitalization: No <Clark Holland - Last Filed: 01/21/20 09:44> <Parish Nicole - Last Filed: 01/21/20 10:51> Chief Complaint: Abd Pain Past Medical History Prior records reviewed: Yes Past Medical History: - - IBS Surgical History: cholecystectomy Lives: With Family Smoking Status: Current every day smoker Alcohol: Occasional Drugs: None <Clark Holland - Last Filed: 01/21/20 09:44> <Parish Nicole - Last Filed: 01/21/20 10:51> - Allergies and Home Meds Allergies/Adverse Reactions: Allergies cefaclor [From Ceclor] Allergy (Verified 01/21/20 09:07) Hives cephalexin monohydrate [From Keflex] Allergy (Verified 01/21/20 09:07) Hives Penicillins [PCN] Allergy (Verified 01/21/20 09:07) Hives Primary Care Physician: Angela Whitman DO [Primary Care Provider] - 3-5 Days Review of Systems All systems negative except as indicated General: Denies: Chills, Fever, Malaise Eyes: Denies: Visual changes - bilaterally, Blurred Vision - bilaterally, Diplopia ENT: Denies: Rhinorrhea, Sore throat Respiratory: Denies: Dyspnea, Cough, Sputum Gastrointestinal: Reports: Abdominal pain, Nausea, Diarrhea. Denies: Vomiting, Constipation, Melena, Hematochezia Genitourinary: Denies: Dysuria, Hematuria, Frequency Musculoskeletal: Denies: Myalgias, Arthralgias Skin: Denies: Rash, Abscess, Abrasions, Wounds Neurological: Denies: Headache, Weakness, Parasthesia <Clark Holland - Last Filed: 01/21/20 09:44> Physical Exam Vital Signs/Narrative: Vital Signs Temp Pulse Resp BP Pulse Ox 01/21/20 09:10 98.4 F 84 17 124/59 H 98 Inital Vital Signs reviewed: Yes General: Well nourished, Well developed, No Acute Distress Head: Normocephalic, Atraumatic Eyes: Perrl, EOMI ENT: Moist mucous membranes Neck: Supple, Nontender, No lymphadenopathy, No JVD Cardiovascular: Regular rate, Regular rhythm, No murmurs Respiratory: No distress, CTA bilaterally, Chest nontender Abdomen: Soft, Nontender, Nondistended, Normal bowel sounds, No masses Back: Nontender, Normal Inspection. Negative for: CVA tenderness Extremities: Nontender, No edema Skin: Normal color, No rash Neurological: Alert, Oriented x3 Psychological: Normal affect, Normal Mood <Clark Holland - Last Filed: 01/21/20 09:44> Vital Signs/Narrative: Vital Signs Temp Pulse Resp BP Pulse Ox 01/21/20 10:21 80 17 126/71 H 97 01/21/20 09:10 98.4 F 84 17 124/59 H 98 <Parish Nicole - Last Filed: 01/21/20 10:51> Diagnostic/Tx/Re-eval - Medical Decision Making Patient presents with normal stable vital signs overall she is well-appearing she has no clinical signs of dehydration and her abdomen is soft and nontender. She has had significant outpatient work-up for the symptoms with a diagnosis of IBS. She states that her symptoms are consistent with her IBS. We discussed w ith her the option of performing emergent testing such as CAT scans laboratory work-up and a urinalysis and at this time mutually agreed upon treating her symptoms with intramuscular Toradol, Bentyl and Phenergan. She will be given prescriptions and she would follow-up with her doctor on Thursday. She was given return precautions to the emergency department and she was agreeable with plan. <Clark Holland - Last Filed: 01/21/20 09:44> - Medical Decision Making Patient seen with Kirk agree with history and physical as above, presents with lower abdominal cramping she is had for some time, history of IBS prior extensive negative outpatient work-up eating and drinking bowel bladder habits unchanged for her, on exam there is no rebound guarding or megaly a vague diffuse discomfort Discussed all of that with the patient discussed ED evaluation with labs CT etc. she declined she would prefer just pain management follow-up with her physician see the chart for full details <Parish Nicole - Last Filed: 01/21/20 10:51> ED Disposition <Clark Holland - Last Filed: 01/21/20 09:44> <Parish Nicole - Last Filed: 01/21/20 10:51> - Plan for ED Patient: Disposition: Home or Assisted Living Diagnosis: Abdominal pain, History of IBS Instructions: What Is IBS?, Diet and Lifestyle Tips for IBS Prescriptions: Dicyclomine HCl [Bentyl] 20 mg PO TIDAC #20 cap Prescription Printed proMETHazine tablet [Phenergan] 25 mg PO Q6H PRN PRN #10 tab PRN Reason: Nausea Prescription Printed Referrals: Angela Whitman DO [Primary Care Provider] - 3-5 Days
[2020-01-21] MEDS: Dicyclomine 10 MG Capsule 20 MG PO (09:52)
[2020-01-21] MEDS: proMETHazine 25 MG Tablet PO (09:52)
[2020-01-21] MEDS: Ketorolac 30 MG/ML Syringe IM (09:53)
[2020-01-21 10:21] VITALS: BP 126/71; PULSE 80; RESP 17; O2SAT 97
--- NOTE | 2020-01-21 10:22 | ED.RN ---
no reaction at injection site.
== END 2020-01-21 10:23 | disposition home or self-care (01) ==
PROVIDERS: Emergency Provider Physician Assistant Medical
DX: R10.9 Unspecified abdominal pain (principal); K58.9 Irritable bowel syndrome, unspecified; F17.200 Nicotine dependence, unspecified, uncomplicated
CPT/HCPCS: 96372; 99285

== ENCOUNTER → 2020-05-09 10:59 | Outpatient (CLI) | payer MEDICAID, SELFPAY ==
[2020-05-09 12:16] LABS: Anion Gap 7 (5-15); BUN 12 mg/dL (7-18); BUN/Creat Ratio 12.1 RATIO (10-20); Calcium,Total 8.5 mg/dL (8.5-10.1); Chloride 105 mmol/L (98-107); Creatinine, Serum 0.99 mg/dL (0.55-1.02); EST Glomerular Filtration Rate 65 mL/min (>60); Est Glom Filt Rate - Afr Amer 79 mL/min (>60); Glucose 152 mg/dL (74-106); Potassium 3.6 mmol/L (3.5-5.1); Sodium Level 137 mmol/L (136-145)
== END ==
PROVIDERS: Visit Provider Anesthesiology Pain Medicine
DX: Z79.899 Other long term (current) drug therapy (principal)
CPT/HCPCS: 36415; 80048

== ENCOUNTER 2020-08-14 09:46 | Outpatient (RCR) | payer MEDICAID, SELFPAY ==
--- NOTE | 2020-08-15 15:16 | HP.FCE ---
Floor (Occasional 1-33% of Day): 30# Floor (Frequent 34-66% of Day): 15# Floor (Constant 67-100% of Day): NA Knee (Occasional 1-33% of Day): 25# Knee (Frequent 34-66% of Day): 12# Knee (Constant 67-100% of Day): NA Waist (Occasional 1-33% of Day): 15# Waist (Frequent 34-66% of Day): 8# Waist (Constant 67-100% of Day): NA Shoulder (Occasional 1-33% of Day): 10# Shoulder (Frequent 34-66% of Day): NA Shoulder (Constant 67-100% of Day): NA Shoulder PDL: Sedentary Bending: Occasional Ability (1-33% of day) Comments: low occasional ability Squatting: Occasional Ability (1-33% of day) Comments: low occasional ability with external support Kneeling: Occasional Ability (1-33% of day) Comments: low occasional ability with external support Reaching out: Frequent Ability (34-66% of day) Reaching up: Frequent Ability (34-66% of day) Sitting: Frequent Ability (34-66% of day) Comments: with shifting body weight Walking: Occasional Ability (1-33% of day) Standing: Occasional Ability (1-33% of day) Comments: low occasional ability shifting weight Duration Sedentary Sedentary Light Light Light Medium Medium Medium Heavy Very Heavy Heavy Occasional (0-33% of day) Frequent (34-66% of day) Constant (67-100% of day) 10 # Negligible Negligible 15 # 8 # Negligible 20 # 10# Negli. 35 # 18 # 7 # 50 # 25 # 10 # 75 # 100 # >100 # 38 # 50 # >50 # 15 # 20 # >20 # Height: 1.65 m Weight:: 122.47 kg Hand Dominance: Right Medical History Including Restrictions: Pt states she has struggled with back pain. pt states since 1998. pt was working [employer] lifting crats she twisted her back at that time. Pt states she went through Physical therapy, pain mtg, with no success in decreasing pts pain. pt states she has been with new pain mtg for the last 4 years. pt states her last MRI was a while ago. pt states she continues with radial frequency ablation x 3, pt states she has had injections with her prior pain mtg doctor four times. Once she asked him for a different pain medication this doctor recommended her to see a spine surgeon. Pt states that?s when she went to a new pain management doctor, dr. Mccracken. With this doctor she has undergone the radio frequency ablations x 3, with other back injections. pt states she continues to return to physical therapy to improve her pain. pt states she continues with her HEP but states it is not helpful- pt does not wear a back brace. pt states she has not been exercising due to pain. pt has tens unit but this was causing a increase in her pain. Zanaflex. diflocaneck Diagnoses: DDD. sleep apnea. IBS Symptoms: low back pain. right leg pain. right foot/tingling/numbness Pain: pt states her pain level sitting is 7/10 not god aful Work History: Pt states she was last employed by [employer]. pt states she worked there 5 years. pt states she has not worked there for the last 8 months. 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 pt states times were varied from 4-6-8 hours shifts depending on demand. pt states her job requirements were to perform room cleaning, vacuum, cleaning bathroom, making beds etc. pt states she did not have a specific job description for lift requirement. pt states she would have to move the desks in the room or dresser if a client moved them while they were staying there. prior to working for [employer] pt worked at [employer] Behavioral: Pt was cooperative throughout the assessment ADLS: Pt lives with her fianc? in a 2nd floor apts. Pt states they just moved into this apt about a month ago. pt states there are full flight (12 steps with railing on both sides) to enter the apartment. Once inside everything is one level. pt sates she has a tub/shower combo. pt states she is CLEMENT with bathing/dressing. pt states her and her fianc? will assist with laundry at laundry mat- pt states she cleans on a light cleaning. pt states she does not cook states they eat out. pt states she has trouble cooking due to standing. Pt states she does drive [place]. pt states she does the grocery shopping. Physical Examination: resting heart rate 115 ROM: pt demo with limited lumbar ext/ flex amd lateral bend- pt demo difficulty with straightening from forward bend position. upper and LE ROM was WFL Strength: UB 4/5. LE bilateral hips 3+/5. ham/quad bilateral 4/5 Right Assistant Nurse Manager Strength Average: 51.66 Right Assistant Nurse Manager Strength Percentile: 8% Left Assistant Nurse Manager Strength Average: 43.33 Left Assistant Nurse Manager Strength Percentile: 5% Right Lateral Pinch Average: 15.33 Right Lateral Pinch Percentile: 75% Left Lateral Pinch Average: 17.33 Left Lateral Pinch Percentile: >90% Right Tripod Pinch Average: 12.66 Right Tripod Pinch Percentile: 25% Left Tripod Pinch Average: 12.00 Left Tripod Pinch Percentile: 50% Comments: resting heart rate 88 Sensation: in hands denies issue. left toes large 4.08 rest of toes 3.61 deminished sensation. right toes 4.17 all toes diminished sensation Fine Motor: 9-hole peg. right 24.75 sec. 10% compared to same age female. left 22.68 sec. 25% compared to same age female Balance: no loss of balance Bending: pt demo the ability to bend forward in limited plane of motion 3x and 5x with pain/ and stretch of low back- HR at 124 - pain with returning to standing straight bending forward feels like a stretch - pt reports numbness tingling in right toes. Pt can bend forward on a low occasional ability. Squatting: pt demo the ability to squat three times, 8 times with external support- pt guarded keep spine straight pt reports her back started pop/crack- pain level 9/10 - pt heart rate 110 following. pt unable to perform 10 x rapidly. Pt can squat on an low occasional ability. Kneeling: pt demo the ability to kneel partial distance three times with external support. pt reported back pain at 7/10 and HR at 111 pt unable to perform 10 x or 10x rapidly. Pt can kneel on low occasional ability with external support. Reaching out/up: pt demo the ability to reach up/out three times, reaching out/up ten times and ten times rapidly while standing pts HR was 117 - pt c/o right toe numbness. Pt can perform reaching up/out on a frequent ability. Walking: pt amb 11 min. with a slow antalgic gait. pt reported pain in back 8/10. heart rate 122. pt can ambulate on an occasional ability. Standing: pt demo the ability to stand for 3 min shifting wt from side to side- pt can stand on a low occasional ability. Sitting: pt demo the ability to sit for 40 min with expressed discomfort and wt. shifting throughout. Pt can sit on a frequent ability with freedom to shift body weight. Climbing Stairs: pt ascended/descended 10 steps with use of hand rails-and a reciprocal step pattern with good ability. Floor Lift: pt demo the ability to lift 30# maximally from this level with good lift mechanics. Knee Lift: pt demo the ability to lift 25# maximally from this level. with good lift mechanics Waist Lift: pt demo the ability to lift 15# maximally from this level. with good lift mechanics Shoulder Lift: pt demo the ability to lift 10# maximally from this level. with good lift mechanics Overhead Lift: unable Carryin# for 40 feet with good posture
--- NOTE | 2020-08-16 09:43 | HP.OT.NRP ---
DAVID Britton DANNA was seen in my office for initial evaluation on . The following Plan of Care was established for this patient: This patient was last seen in our office 08/14/20. Pertinent comments regarding their Occupational therapy will appear below: pt seen for FCE only. pt D/C At this point I will be discontinuing this patient from occupational therapy. I would be happy to see this patient again in the future if found appropriate by the physician. Thank you! Alaina Navas, OTR/L, CHT
== END 2020-08-14 19:00 | disposition home or self-care (01) ==
LOC: OT 09:46
DX: M54.9 Dorsalgia, unspecified (principal); G89.29 Other chronic pain
CPT/HCPCS: 97750

== ENCOUNTER 2020-09-18 10:00 | Outpatient (RCR) | payer MEDICAID, SELFPAY ==
--- NOTE | 2020-08-15 09:31 | HP.PTEVAL ---
Patient's Visit Information DAVID CLAY is a 44 year old F referred to Physical Therapy by MARCIA Monterroso with a diagnosis of DEGENENERATIVE OF LUMBOSACRAL, INTERVERTEBRAL DISC ,LUMBAR RADICULOPATHY. Date of Evaluation: 08/15/20 Physical Therapist: Aaron Sow, PT, Cert MDT, OCS - Visit Plan Frequency: 2x /Week Duration: 4 Weeks Plan: PT INTERVENTIONS POSTURAL EX'S,DLS ABD/BACK,MODALTIES,LE FLEXABLITY - Subjective This 44 y/o female presents physical therapy with lumbar pain . Patient has lumbar pain many years. Patient most recently had PT in Sep 2019 . Then had radiofequency ablasion and has several epidural injection in past . Patient return to pain management. Then recommended PT. No recent x-rays or MRI. Patient MEDS xanflex and diaflocanic. Patient has occassionally parathesia tingling in leg. Bowel/bladder-. Coughing/sneezing+. Location symmtrical R>L and right radiculopathy. Aggaveting bending ,lifting,standing ,lifting and extended sitting.Alleviating factors moving. Patient symptoms affects ADL's ,housework tasks and function. Patient pain affects QOL. VOCATION: unemployed. SOCIAL: - Pain Bilateral Back Pain Intensity (Out of 10): 7 Pain Intensity Range: 10 - Objective POSTURE: mild foward posture. GAIT: reciprocal pattern. NEURO: c/o parathesia /tingling right leg ,reflexes L3-4,L4-L5,L5-S1 1/3. PALAPTION: tender L-S REGION RIGHT> LEFT. FLEXABLITY: hams mod tight. MMT: quads/hams 4-/5,hip flexion 4-/5,ankle 4/5. LUMBAR ROM: flexion mod loss,extension severe loss,side glides mod loss. SYMMTRIES: alighn - Special Tests L/S Slump test left side: Negative L/S Slump test right side: Negative L/S Left Straight Leg Raise: Negative L/S Right Straight Leg Raise: Negative Lumbar Standing: Flexion - Mechanical Response: No effect Lumbar Standing: Flexion - Symptoms During Testing: Increases Lumbar Standing: Flexion - Symptoms After Testing: No worse Lumbar Standing: Extension - Mechanical Response: No effect Lumbar Standing: Extension - Symptoms During Testing: Increases Lumbar Standing: Extension - Symptoms After Testing: No worse Lumbar Standing: Right Side Glides - Mechanical Response: No effect Lumbar Standing: Right Side [place] - Symptoms During Testing: No effect Lumbar Standing: Right Side [place] - Symptoms After Testing: No effect Lumbar Standing: Left Side [place] - Mechanical Response: No effect Lumbar Standing: Left Side [place] - Symptoms During Testing: No effect Lumbar Standing: Left Side [place] - Symptoms After Testing: No effect - Goals Goal 1:: Patient to be I with HEP Goal Time Frame: 4-6 Weeks Goal 2:: Patient to decrease pain lumbar and radiculopathy by 50% or > to improve QOL. Goal Time Frame: 4-6 Weeks Goal 3:: Patient to improve lumbar ROM for function of recovery Goal Time Frame: 4-6 Weeks Goal 4:: Patient increase strength BLE to 4/5 to improve function with ADL's and gait. Goal Time Frame: 4-6 Weeks Goal 5:: Patient improve back owestry score by 5 points or > to improve QOL. Goal Time Frame: 4-6 Weeks - Rehabilitation Potential Physical Therapy Diagnosis: This patient has chronic lumbar pain with poor lumbra ROM for function of recovery,decrease strength,pain with functional movement thus benifit from skilled PT. Rehabilitation Potential: Good - Anticipated Interventions Patient/Client Instruction: Educate patient on: Condition, Plan of Care For the Purpose of:: To decrease pain, To increase ROM, To improve muscle performance and motor function, To improve ability to perform ADL's, To increase tolerance to activity/condition/position, To improve ability of physical actions for home/community/work/leisure, To improve health of tissue, To decrease soft tissue restriction, To increase flexibility/ROM, To reduce risk of recurrence, To improve ability to perform tasks related to life management Therapeutic Exercise to Include: Strength training, Postural training, Flexibilty training, Active ROM, Dynamic Lumbar Stabilization For the Purpose of:: To decrease pain, To increase ROM, To improve muscle performance and motor function, To improve ability to perform ADL's, To increase tolerance to activity/condition/position, To improve ability of physical actions for home/community/work/leisure, To improve health of tissue, To decrease soft tissue restriction, To increase flexibility/ROM, To reduce risk of recurrence, To improve ability to perform tasks related to life management Thank you for the opportunity to evaluate your patient. For Medicare and Medicare HMO plans, please review the plan of care and approve it. It will need to be FAXED BACK to us at [phone] for Medicare purposes. For Medicare only, by signing this I certify the plan of care. Please let me know if there are questions or concerns regarding this plan of care. Physician Signature: Date:
--- NOTE | 2020-11-14 10:32 | HP.PTDCSUM ---
It has been my pleasure to treat DAVID CLAY referred by RADHA MonterrosoC, with the diagnosis of DEGENENERATIVE OF LUMBOSACRAL, INTERVERTEBRAL DISC ,LUMBAR RADICULOPATHY for a total of 9 visit(s). Discharge Date: Please see the following information for a summary of their discharge status. Subjective: Plan to RTD ,possible procedure pain management Bilateral Back Pain Intensity (Out of 10): 6 % Improvement: 60 Objective/Function: Lit tx well with ex's progressing with managing symptoms Goal 1:: Patient to be I with HEP Goal 2:: Patient to decrease pain lumbar and radiculopathy by 50% or > to improve QOL. Goal 3:: Patient to improve lumbar ROM for function of recovery Goal 4:: Patient increase strength BLE to 4/5 to improve function with ADL's and gait. Goal 5:: Patient improve back owestry score by 5 points or > to improve QOL. Plan: RTD. D/C If there are questions or concerns regarding this patient's physical therapy, please feel free to call me at [phone]. Thank you for the referral of this patient. Sincerely, Aaron Sow, PT, Cert MDT, OCS
== END 2020-09-18 19:00 | disposition home or self-care (01) ==
LOC: PT 10:00
PROVIDERS: Referring Provider Nurse Practitioner Family; Visit Provider Nurse Practitioner Family
DX: M51.34 Other intervertebral disc degeneration, thoracic region (principal)
CPT/HCPCS: 97110; 97162

== ENCOUNTER → 2020-10-01 10:16 | Outpatient (CLI) | payer MEDICAID, SELFPAY ==
--- NOTE | 2020-10-01 10:22 | MRI_ITS ---
STUDY: MRI THORACIC SPINE WITHOUT CONTRAST REASON FOR EXAM: Female, 45 years old. back pain, right side low back pain, rt leg pain TECHNIQUE: Standardized fat and water weighted pulse sequences were obtained in the sagittal and axial planes. COMPARISON: X-ray dated 07/02/2019 FINDINGS: Normal kyphosis of the thoracic spine. There is no substantial scoliosis. T1-2, T2-3, T3-4, T4-5, T5-6, T6-7, T7-8, T8-9, T9-10, T10-11, T11-12: There are multilevel disc space narrowing and endplate spondylosis. There are small demyelination. At T7/T8 there is small left paracentral herniation with mild effacement of the ventral thecal sac and spinal cord. There is no cord compression. At T8/T9 there is small central herniation with minimal effacement of the ventral thecal sac . There is no cord compression. At T9/T10 there is small central herniation with mild effacement of the ventral thecal sac and spinal cord. There is no cord compression. MRI/Spine Thoracic (Routine) IMPRESSION: Moderate degenerative changes. Small disc herniation without significant central canal stenosis. Electronically Signed: Palomo Brown MD at 10:24 EST Tel , Service support ,
== END ==
PROVIDERS: Referring Provider Anesthesiology Pain Medicine; Visit Provider Anesthesiology Pain Medicine
DX: M51.34 Other intervertebral disc degeneration, thoracic region (principal)
CPT/HCPCS: 72146

== ENCOUNTER 2021-04-02 01:08 | Emergency (ER) | payer MEDICAID, SELFPAY ==
[2021-04-02 01:08] VITALS: BP 126/80; PULSE 105; RESP 18; TEMP 36.6; O2SAT 99; BMI 36.1
--- NOTE | 2021-04-02 01:25 | EDS_ITS ---
HPI <Dr. Olive Mcgovern, DO - Last Filed: 04/02/21 06:40> HPI - Psych History of Present Illness Chief Complaint: Mental Health Detail of Chief Complaint: Patient presents via police escort for agitation Informant: patient Narrative Narrative: Patient with history of mental illness. She is a poor historian. She is being pink slipped by police. Patient apparently threatening others at the apartment complex she lives in. On police arrival she was speaking to people that were not there. Patient very combative and agitated and EMS gave patient 200 mg of ketamine prior to arrival in the emergency department. Patient only screams and laughs inappropriately and does not give much history. PFSH <Dr. Olive Mcgovern, DO - Last Filed: 04/02/21 06:40> [facility] Home Medications diclofenac sodium 75 mg PO BIDCM 01/29/19 [History Last Taken 06/15/19] dicyclomine 20 mg PO TIDAC #20 cap 06/15/19 [Rx Last Taken Unknown] omeprazole 20 mg PO DAILY #30 cap 06/15/19 [Rx Last Taken Unknown] dicyclomine 20 mg PO TIDAC #20 cap 01/21/20 [Rx Last Taken Unknown] promethazine 25 mg PO Q6H PRN PRN 01/21/20 [History Last Taken Unknown] promethazine 25 mg PO Q6H PRN PRN #10 tab 01/21/20 [Rx Last Taken Unknown] tizanidine 4 mg PO BID PRN PRN 01/21/20 [History Last Taken Unknown] Allergy/AdvReac Type Severity Reaction Status Date / Time cefaclor [From Ceclor] Allergy Hives Verified 01/21/20 09:07 cephalexin monohydrate Allergy Hives Verified 01/21/20 09:07 [From Keflex] Penicillins [PCN] Allergy Hives Verified 01/21/20 09:07 Social History Smoking Status: Current every day smoker ROS <Dr. Olive Mcgovern, DO - Last Filed: 04/02/21 06:40> ROS ED Review of Systems ROS Unobtainable: due to mental condition, due to mental status and other; Denies due to encephalopathy or due to endotracheal tube Constitutional Constitutional ED: Reports systems reviewed and no addt'l complaints, except as documented; Denies body ache(s), change in weight or chills Eyes Eyes: Denies acute decrease in peripheral vision, change in vision, double vision or loss of vision ENT ENT ED: Reports none; Denies ear pain, lip swelling, loss taste/smell, neck pain, otalgia or sore throat Cardiovascular Cardiovascular: Reports none; Denies abdominal pain, chest pain with activity, leg edema, lightheadedness, palpitations, rapid heart rate or syncope Respiratory/Chest Respiratory/Chest: Reports none; Denies change in mental status, dry cough, dyspnea, hemoptysis, shortness of breath at rest or shortness of breath with exertion Gastrointestinal Gastrointestinal: Reports none; Denies abdominal pain, change in stool character, diarrhea, hematemesis, hematochezia, melena, rectal bleeding or vomiting Genitourinary Genitourinary ED: Reports none; Denies abdominal discomfort, anuria, dysuria, ge nital pain or polyuria Musculoskeletal Musculoskeletal: Reports none; Denies arthralgias, back pain, difficulty walking, extremity pain, muscle weakness or myalgias Integumentary Reports none; Denies abscess or rash Neurologic Neurologic: Reports none; Denies abnormal gait, confusion, focal weakness, frequent falls, headache(s), loss of vision, numbness, paresthesias, radicular pain, vertigo or weakness Psychiatric Psychiatric: Reports systems reviewed and no addt'l complaints, except as documented and none; Denies behavioral changes, confusion, difficulty concentrating, hallucinations, suicidal ideation, tactile hallucinations or visual hallucinations Endocrine Endocrinology: Denies none, cold intolerance, excessive sweating, fatigue or heat intolerance Hematologic/Lymphatic Hematologic/Lymphatic: Reports none; Denies anemia, easy bleeding or easy bruis ing Allergic/Immunologic Allergic/Immunologic ED: Denies as per HPI, none, lip swelling, mouth swelling, throat swelling, tongue swelling or hives EXAM <Dr. Olive Mcgovern, DO - Last Filed: 04/02/21 06:40> Physical Exam Const Vital Signs: 04/02/21 01:08 04/02/21 03:27 04/02/21 05:02 Temperature 97.8 F Temperature Source Temporal Pulse Rate 105 H 106 H Respiratory Rate 18 16 16 Blood Pressure 126/80 H 108/80 Blood Pressure Mean 95 89 Pulse Ox 99 98 Oxygen Delivery Method Room Air Room Air Room Air Positive well nourished and well developed General Appearance ED: well developed and NAD HEENT Reports TM's clear and moist mucous membranes normocephalic and atraumatic; Negative for trauma or tenderness Tympanic Membrane ED: Yes TM's clear Eyes PERRL and EOMs intact bilaterally General Eye ED: Negative for pale conjunctiva or scleral icterus Neck no lymphadenopathy, supple and no JVD General: Negative for tenderness Chest Wall inspection of chest normal and palpation of chest normal Chest: Negative for tenderness Resp normal respiratory effort and clear to auscultation bilaterally Effort and Inspection: Negative for respiratory distress or pain with movement Auscultation: Negative for rhonchi, wheezes or diminished lung sounds Cardio regular rate, regular rhythm, S1 normal heart sound, S2 normal heart sound and no murmurs Peripheral Pulses: pulses 2+ throughout GI normal to inspection, nondistended, normoactive bowel sounds, soft to palpation, non-tender, non-distended and no masses Back/Spine no CVA tenderness and no thoracic nor lumbar tenderness Extremity normal to inspection General Extremety ED: Negative for edema General Extremity: Negative for edema Neuro oriented x3, CN's II-XII intact bilaterally, no sensory deficits noted and gait normal Sensorium / Orientation: awake, alert, oriented to person, oriented to place and oriented to time Motor Exam: strength 5/5 throughout and strength abnormal Psych Negative for mental status grossly normal, thought process normal, cooperative or activity/motor behavior normal Thought Process: incoherent, flight of ideas and tangential Skin no rashes or lesions noted and no wounds <Dr. Satish Roberts MD - Last Filed: 04/02/21 10:55> Physical Exam Const Vital Signs: 04/02/21 01:08 04/02/21 03:27 04/02/21 05:02 Temperature 97.8 F Temperature Source Temporal Pulse Rate 105 H 106 H Respiratory Rate 18 16 16 Blood Pressure 126/80 H 108/80 Blood Pressure Mean 95 89 Pulse Ox 99 98 Oxygen Delivery Method Room Air Room Air Room Air MDM <Dr. Olive Mcgovern DO - Last Filed: 04/02/21 06:40> [facility] MDM Narrative Medical decision making narrative: On arrival patient quite agitated and uncooperative. She was medicated with Haldol and Ativan. Work-up in department was significant for an elevated white blood cell count which I suspect is likely reactive from patient's agitation. Patient to be evaluated by crisis for placement to psychiatric facility for psychosis stabilization. Care of patient will be turned over to morning physician. Lab Data Attestation: I reviewed the patient's lab results. Labs: Laboratory Results - last 24 hr 04/02/21 04/02/21 04/02/21 01:25 01:25 01:25 WBC 21.4 H RBC 4.57 Hgb 12.1 Hct 37.5 MCV 82.1 MCH 26.5 L MCHC 32.3 RDW Std Deviation 44.7 H RDW Coeff of Camron 15.3 H Plt Count 321 MPV 10.2 Immature Gran % (Auto) 0.400 Neut % (Auto) 87.5 H Lymph % (Auto) 6.5 L Ocean % (Auto) 5.4 Eos % (Auto) 0.0 Baso % (Auto) 0.2 Absolute Neuts (auto) 18.7 H Absolute Lymphs (auto) 1.39 Nucleated RBC % 0 Sodium 135 L Potassium 3.0 L Chloride 104 Carbon Dioxide 18.0 L Anion Gap 13 BUN 9 Creatinine 1.32 H Estim Creat Clear Calc 55.44 Est GFR (MDRD) Af Amer 56 L Est GFR (MDRD) Non-Af 47 L BUN/Creatinine Ratio 6.8 L Glucose 137 H Calcium 9.0 Serum , Qual Urine Color Urine Clarity Urine pH Ur Specific [place] Urine Protein Urine Glucose (UA) Urine Ketones Urine Occult Blood Urine Nitrite Urine Bilirubin Urine Urobilinogen Ur Leukocyte Esterase Urine RBC Urine WBC Ur Squamous Epith Cells Urine Bacteria Urine Mucus Urine Opiates Screen Urine Methadone Screen Ur Barbiturates Screen Ur Phencyclidine Scrn Ur Amphetamines Screen U Methamphetamin-MDMA U Benzodiazepines Scrn Urine Cocaine Screen U Cannabinoids Screen Ur Drug Screen Comment Ethyl Alcohol < 3.0 04/02/21 04/02/21 04/02/21 01:25 02:20 02:20 WBC RBC Hgb Hct MCV MCH MCHC RDW Std Deviation RDW Coeff of Camron Plt Count MPV Immature Gran % (Auto) Neut % (Auto) Lymph % (Auto) Ocean % (Auto) Eos % (Auto) Baso % (Auto) Absolute Neuts (auto) Absolute Lymphs (auto) Nucleated RBC % Sodium Potassium Chloride Carbon Dioxide Anion Gap BUN Creatinine Estim Creat Clear Calc Est GFR (MDRD) Af Amer Est GFR (MDRD) Non-Af BUN/Creatinine Ratio Glucose Calcium Serum , Qual NEGATIVE Urine Color Yellow Urine Clarity Clear Urine pH 5.0 Ur Specific [place] 1.010 Urine Protein Negative Urine Glucose (UA) Normal Urine Ketones 15 H Urine Occult Blood 150 H Urine Nitrite Negative Urine Bilirubin Negative Urine Urobilinogen Normal Ur Leukocyte Esterase 500 H Urine RBC 0-5 SEEN Urine WBC 5-10 SEEN Ur Squamous Epith Cells 0-5 SEEN Urine Bacteria 0 SEEN Urine Mucus 0 SEEN Urine Opiates Screen NEGATIVE Urine Methadone Screen NEGATIVE Ur Barbiturates Screen NEGATIVE Ur Phencyclidine Scrn NEGATIVE Ur Amphetamines Screen NEGATIVE U Methamphetamin-MDMA NEGATIVE U Benzodiazepines Scrn NEGATIVE Urine Cocaine Screen NEGATIVE U Cannabinoids Screen POSITIVE H Ur Drug Screen Comment Ethyl Alcohol Radiography Diagnostic Testing: Radiology Impression Brain CT 04/02/21 01:29 IMPRESSION: Normal unenhanced CT scan of the brain. Electronically Signed: Abelardo Deras MD at 3:48 EDT , Service support , <Dr. Satish Roberts MD - Last Filed: 04/02/21 10:55> [facility] Lab Data Labs: Laboratory Results - last 24 hr 04/02/21 04/02/21 04/02/21 01:25 01:25 01:25 WBC 21.4 H RBC 4.57 Hgb 12.1 Hct 37.5 MCV 82.1 MCH 26.5 L MCHC 32.3 RDW Std Deviation 44.7 H RDW Coeff of Camron 15.3 H Plt Count 321 MPV 10.2 Immature Gran % (Auto) 0.400 Neut % (Auto) 87.5 H Lymph % (Auto) 6.5 L Ocean % (Auto) 5.4 Eos % (Auto) 0.0 Baso % (Auto) 0.2 Absolute Neuts (auto) 18.7 H Absolute Lymphs (auto) 1.39 Nucleated RBC % 0 Sodium 135 L Potassium 3.0 L Chloride 104 Carbon Dioxide 18.0 L Anion Gap 13 BUN 9 Creatinine 1.32 H Estim Creat Clear Calc 55.44 Est GFR (MDRD) Af Amer 56 L Est GFR (MDRD) Non-Af 47 L BUN/Creatinine Ratio 6.8 L Glucose 137 H Calcium 9.0 Serum , Qual Urine Color Urine Clarity Urine pH Ur Specific [place] Urine Protein Urine Glucose (UA) Urine Ketones Urine Occult Blood Urine Nitrite Urine Bilirubin Urine Urobilinogen Ur Leukocyte Esterase Urine RBC Urine WBC Ur Squamous Epith Cells Urine Bacteria Urine Mucus Urine Opiates Screen Urine Methadone Screen Ur Barbiturates Screen Ur Phencyclidine Scrn Ur Amphetamines Screen U Methamphetamin-MDMA U Benzodiazepines Scrn Urine Cocaine Screen U Cannabinoids Screen Ur Drug Screen Comment Ethyl Alcohol < 3.0 04/02/21 04/02/21 04/02/21 01:25 02:20 02:20 WBC RBC Hgb Hct MCV MCH MCHC RDW Std Deviation RDW Coeff of Camron Plt Count MPV Immature Gran % (Auto) Neut % (Auto) Lymph % (Auto) Ocean % (Auto) Eos % (Auto) Baso % (Auto) Absolute Neuts (auto) Absolute Lymphs (auto) Nucleated RBC % Sodium Potassium Chloride Carbon Dioxide Anion Gap BUN Creatinine Estim Creat Clear Calc Est GFR (MDRD) Af Amer Est GFR (MDRD) Non-Af BUN/Creatinine Ratio Glucose Calcium Serum , Qual NEGATIVE Urine Color Yellow Urine Clarity Clear Urine pH 5.0 Ur Specific [place] 1.010 Urine Protein Negative Urine Glucose (UA) Normal Urine Ketones 15 H Urine Occult Blood 150 H Urine Nitrite Negative Urine Bilirubin Negative Urine Urobilinogen Normal Ur Leukocyte Esterase 500 H Urine RBC 0-5 SEEN Urine WBC 5-10 SEEN Ur Squamous Epith Cells 0-5 SEEN Urine Bacteria 0 SEEN Urine Mucus 0 SEEN Urine Opiates Screen NEGATIVE Urine Methadone Screen NEGATIVE Ur Barbiturates Screen NEGATIVE Ur Phencyclidine Scrn NEGATIVE Ur Amphetamines Screen NEGATIVE U Methamphetamin-MDMA NEGATIVE U Benzodiazepines Scrn NEGATIVE Urine Cocaine Screen NEGATIVE U Cannabinoids Screen POSITIVE H Ur Drug Screen Comment Ethyl Alcohol Radiography Diagnostic Testing: Radiology Impression Brain CT 04/02/21 01:29 IMPRESSION: Normal unenhanced CT scan of the brain. Electronically Signed: Abelardo Deras MD at 3:48 EDT , Service support , Discharge Plan Triage Chief Complaint: Mental Health ED Provider: Satish Roberts Dx/Rx/DC Orders Clinical Impression: Psychosis Prescriptions: No Action diclofenac sodium 75 MG tablet 75 mg PO BIDCM RF: 0 dicyclomine 10 MG capsule 20 mg PO TIDAC Qty: 20 RF: 0 omeprazole 20 MG capsule 20 mg PO DAILY Qty: 30 RF: 0 tizanidine 4 MG tablet 4 mg PO BID PRN PRN (Reason: Muscle Spasm) RF: 0 promethazine 25 MG tablet 25 mg PO Q6H PRN PRN (Reason: Nausea) RF: 0 promethazine 25 MG tablet 25 mg PO Q6H PRN PRN (Reason: Nausea) Qty: 10 RF: 0 dicyclomine 10 MG capsule 20 mg PO TIDAC Qty: 20 RF: 0 Primary Care Provider: Angela Whitman Referrals: Angela Whitman, [Primary Care Provider] -
--- NOTE | 2021-04-02 01:29 | CT_ITS ---
STUDY: CT BRAIN WITHOUT CONTRAST REASON FOR EXAM: Female, 45 years old. mental status change RADIATION DOSAGE (If Supplied By Facility): CTDIvol = ( 44.99 ) mGy, DLP = ( 796.11 ) mGycm TECHNIQUE: Transaxial CT imaging of the brain was performed without administration of intravenous contrast material. Individualized dose optimization techniques were used for this CT. COMPARISON: No relevant priors. FINDINGS: Normal soft tissue structures. Normal calvarium. Normal size ventricles and extra-axial spaces for the patient''s age. Normal white matter tracts of the cerebral hemispheres. Normal basal ganglia and thalami. Normal brainstem. Normal cerebellum. There is no intracranial hemorrhage. There are no findings of an acute ischemic infarction. Normal visualized paranasal sinuses. CT/Brain/Head without Contrast IMPRESSION: Normal unenhanced CT scan of the brain. Electronically Signed: Abelardo Deras MD at 3:48 EDT , Service support ,
[2021-04-02 01:30] LABS: Absolute Lymphocyte Count 1.39 X10^3/uL (0.83-4.51); Absolute Neutrophil Count 18.7 X10^3/uL (2.0-7.7); Basophil# 0.04 X10^3/uL; Basophil% 0.2 % (0-1); Hematocrit 37.5 % (37-47); Hemoglobin 12.1 g/dL (12.0-15.0); Lymphocyte # 1.39 X10^3/ul (0.83-4.51); Lymphocyte % 6.5 % (19-41); Mean Corp Hgb Conc 32.3 g/dL (32-36); Mean Corpuscular Hgb 26.5 pg (27.0-32.0); Mean Corpuscular Volume 82.1 fL (81-99); Mean Platelet Vol. 10.2 fl (6.2-12.0); Monocyte# 1.15 X10^3/uL; Monocyte% 5.4 % (0-10); NRBC Flagged by Analyzer 0 % (0-5); Neutrophil % 87.5 % (47-70); Platelet Count 321 K/mm3 (150-450); RBC Distribution Width CV 15.3 % (11.6-14.6); RBC Distribution Width SD 44.7 fl (35.1-43.9); Red Blood Count 4.57 M/mm3 (4.2-5.4); White Blood Count 21.4 K/mm3 (4.4-11.0)
[2021-04-02] MEDS: LORazepam 2 MG/ML Syringe 1 MG IM ×2 (01:37→02:20)
[2021-04-02] MEDS: Haloperidol Lactate 5 MG/ML Vial 2 MG IM (01:37)
[2021-04-02 01:40] LABS: Internal QC Validated? YES +Cl - CLEAR BKGD; Pregnancy, Serum, hCG Quali. NEGATIVE Negative
[2021-04-02 01:41] LABS: Anion Gap 13 (5-15); BUN 9 mg/dL (7-18); BUN/Creat Ratio 6.8 RATIO (10-20); Chloride 104 mmol/L (98-107); Creatinine, Serum 1.32 mg/dL (0.55-1.02); EST Glomerular Filtration Rate 47 mL/min (>60); Est Glom Filt Rate - Afr Amer 56 mL/min (>60); Estimated Creatinine Clearance 55.44 ml/min; Glucose 137 mg/dL (74-106); Sodium Level 135 mmol/L (136-145)
[2021-04-02 01:42] LABS: Alcohol, Blood (Medical)-Serum < 3.0 mg/dL
[2021-04-02] MEDS: Haloperidol Lactate 5 MG/ML Vial IM (02:20)
[2021-04-02 02:26] LABS: Bacteria 0 SEEN /hpf (None Seen); Mucous, Urine 0 SEEN /hpf (<or=2+)
[2021-04-02 02:27] LABS: Color, Urine Yellow (Yellow); Glucose, Dipstick Normal (Normal); Ketone-Dipstick 15 mg/dl (Negative); Leukocyte Esterase-Dipstick 500 /ul (Negative); Nitrite-Dipstick Negative (Negative); Occult Blood-Urine 150 /ul (Negative); Protein-Dipstick Negative (Negative); Urine Bilirubin Dipstick Negative (Negative); Urine Clarity Clear (Clear); Urine Urobilinogen Normal (Normal)
[2021-04-02 02:32] LABS: Red Blood Cells-Urine 0-5 SEEN /hpf (0-5); Squamous Epithelial Cells - UA 0-5 SEEN /hpf (5-10); White Blood Cells 5-10 SEEN /hpf (0-5)
[2021-04-02 02:38] LABS: Amphetamine Urine VISTA NEGATIVE (<1000 ng/mL); Barbiturate Urine VISTA NEGATIVE (< 200 ng/mL); Benzodiazepine Urine VISTA NEGATIVE (< 200 ng/mL); Cocaine Urine VISTA NEGATIVE (< 300 ng/mL); Ecstacy Urine VISTA NEGATIVE (< 500 ng/mL); Methadone Urine VISTA NEGATIVE (< 300 ng/mL); PCP Urine VISTA NEGATIVE (< 25 ng/mL); THC Urine VISTA POSITIVE (< 50 ng/mL); Vista UDS pH Range 5
[2021-04-02 03:27] VITALS: RESP 16
[2021-04-02 05:02] VITALS: BP 108/80; PULSE 106; RESP 16; O2SAT 98
--- NOTE | 2021-04-02 05:05 | ED.RN ---
FAXED PAPERS AND CALLED CRISIS ABOUT THE PATIENT
--- NOTE | 2021-04-02 05:07 | ED.RN ---
crisis called and notifed of patient at this time
--- NOTE | 2021-04-02 07:59 | ED.RN ---
PT TALKING TO THE MACHADO, AND TALKING TO PEOPLE THAT ARE NOT IN THE ROOM.PT PACING
--- NOTE | 2021-04-02 08:07 | ED.RN ---
REFERRAL TO [facility] PER CRISES
--- NOTE | 2021-04-02 09:37 | ED.RN ---
PT CONTINUES PACING AND YELLING IN ROOM. PT IS DIRECTABLE. DRESSED IN A BLANKET
--- NOTE | 2021-04-02 09:59 | ED.RN ---
PT UP IN ROOM. WANDERING AROUND NAKED. PT WASHING HAIR IN SINK. THIS RN IN ROOM, PT TALKING TO THE WALL AND SELF. TOLD BEHAVIOR IS NOT APPROPRIATE AND PT NEEDS TO BE COVERED
--- NOTE | 2021-04-02 10:37 | CM.ED ---
JUSTIN Note: Referral Source: Case Find Referral Reason: [facility] Spoke to Tracy. She indicated that patient has been referred to [facility] Tracy will continue to update. JUSTIN received call from [facility] Tracy. Tracy said [facility] inquired if [facility] ([facility]) staff has given patient anything for her potassium and if she has eaten. JUSTIN spoke to RN MARÍA and she advised patient is directable and has eaten this morning. She said that [facility] has not given anything for patient's potassium. JUSTIN will continue to follow Plan: Crisis working on inpatient psychiatric hospitalization. Katy LAZARO
--- NOTE | 2021-04-02 11:04 | ED.RN ---
PT WITH IMPROVED MENTATION AT THIS POINT. PT ABLE TO COMMUNICATE NEEDS TO THIS RN AND FOLLOW DIRECTIONS. POTASSIUM GIVEN
[2021-04-02] MEDS: Potassium Chloride Oral Tablet 20 MEQ 60 MEQ PO (11:05)
--- NOTE | 2021-04-02 11:36 | CM.ED ---
JUSTIN Note: Per Tracy from Crisis. Patient will need potassium given to patient and then verification that it increased per [facility] ([facility] updated. Plan: Discharge to inpatient psychiatric unit
--- NOTE | 2021-04-02 13:19 | ED.RN ---
PT FIANCE IN ROOM WITH PT. BOTH HAVING CONVERSATION. PT HAD BLOOD DRAWN BY THIS RN FOR REPEAT POTASSIUM. PT TOLERATED WELL. PT COOPERATIVE
[2021-04-02 13:33] LABS: Potassium 3.6 mmol/L (3.5-5.1)
[2021-04-02] MEDS: Ondansetron ODT 4 MG Tablet PO (14:10)
[2021-04-02 14:37] VITALS: BP 110/63; PULSE 96; RESP 14; TEMP 36.9; O2SAT 98
[2021-04-02 16:47] VITALS: RESP 14
--- NOTE | 2021-04-02 16:54 | ED.RN ---
physicians called for transport. eta 90 min to 2 hours
--- NOTE | 2021-04-02 17:04 | ED.RN ---
PT DOING SELF CARE IN ROOM. PT HAS SHAMPOOED HAIR, BATHES SELF WITH BATH CLOTHES. NO EVIDENCE OF BED BUGS OR OTHER ISSUES. PT PLACED IN CLEAN GOWN,BED CHANGED
--- NOTE | 2021-04-02 17:17 | ED.RN ---
pt going to IT [facility] number for report [phone] fax for records [phone]
[2021-04-02 18:00] VITALS: RESP 14
[2021-04-02] MEDS: Calcium Carbonate 500 MG Tablet 1000 MG PO (18:33)
--- NOTE | 2021-04-02 18:33 | ED.RN ---
PT CONCERNED THAT HER PSYCHOTIC BREAK WAS A RESULT OF A REACTION TO CHANTIX
--- NOTE | 2021-04-02 19:26 | ED.RN ---
CALLED TO CHECK THE STATUS OF THIS TRANSPORT, THEY ADVISED IT WILL BE ANOTHER THIRTY MINUTES.
== END 2021-04-02 20:32 ==
PROVIDERS: Emergency Medicine; Emergency Provider Emergency Medicine
DX: F29 Unspecified psychosis not due to a substance or known physiological condition (principal); F17.200 Nicotine dependence, unspecified, uncomplicated; Z79.899 Other long term (current) drug therapy
CPT/HCPCS: 36415; 70450; 80048; 80307; 81001; 82077; 84132; 84703; 85025; 87426; 96372; 99285

== ENCOUNTER 2021-05-03 20:37 | Emergency (ER) | payer MEDICAID, SELFPAY ==
[2021-05-03 20:38] VITALS: BP 129/68; PULSE 96; RESP 15; TEMP 36.3; O2SAT 98; BMI 39.2
--- NOTE | 2021-05-03 20:53 | EDS_ITS ---
HPI History of Present Illness Chief Complaint: Edema Detail of Chief Complaint: Swelling of lower extremities for 2 weeks Informant: patient Narrative Narrative: Patient presents to the emergency department complaint of swelling to both lower extremities that started 2 weeks ago. Patient saw her primary care physician and was started on hydrochlorothiazide but has not seen any results. She denies chest pain or shortness of breath. Patient also states that she had an echocardiogram and a chest x-ray that were unremarkable. Patient also states she had blood work. Patient denies recent travel or surgery. She has no history of PE or DVT. Patient also wanted me to look at her injection site in her low back where her pain management doctor gave her an injection yesterday. Patient noticed some swelling to the area may be some redness. Patient eats that she has had swelling in her legs before and has responded to water pills in the past. Prior similar symptoms: Yes [facility] Medical History (Updated 05/03/21 @ 22:[address] Olive Mcgovern, ) Disc degeneration Home Medications tizanidine 4 mg PO BID PRN PRN 01/21/20 [History Last Taken Unknown] hydroxyzine pamoate 25 mg PO TID 04/02/21 [History Last Taken Unknown] omeprazole 20 mg PO DAILY 04/02/21 [History Last Taken Unknown] sertraline 100 mg PO DAILY 04/02/21 [History Last Taken Unknown] varenicline [Chantix] 1 mg PO BID 04/02/21 [History Last Taken Unknown] furosemide [Lasix] 40 mg PO DAILY #7 tab 05/03/21 [Rx Last Taken Unknown] Allergy/AdvReac Type Severity Reaction Status Date / Time cefaclor [From Ceclor] Allergy Hives Verified 05/03/21 20:39 cephalexin monohydrate Allergy Hives Verified 05/03/21 20:39 [From Keflex] Penicillins [PCN] Allergy Hives Verified 05/03/21 20:39 Social History Smoking Status: Current every day smoker tobacco type: cigarettes ROS ROS ED Constitutional Constitutional ED: Reports systems reviewed and no addt'l complaints, except as documented; Denies body ache(s), change in weight or chills Eyes Eyes: Denies acute decrease in peripheral vision, change in vision, double vision or loss of vision ENT ENT ED: Reports none; Denies ear pain, lip swelling, loss taste/smell, neck pain, otalgia or sore throat Cardiovascular Cardiovascular: Reports none; Denies abdominal pain, chest pain with activity, leg edema, lightheadedness, palpitations, rapid heart rate or syncope Respiratory/Chest Respiratory/Chest: Reports none; Denies change in mental status, dry cough, dyspnea, hemoptysis, shortness of breath at rest or shortness of breath with exertion Gastrointestinal Gastrointestinal: Reports none; Denies abdominal pain, change in stool character, diarrhea, hematemesis, hematochezia, melena, rectal bleeding or vomiting Genitourinary Genitourinary ED: Reports none; Denies abdominal discomfort, anuria, dysuria, genital pain or polyuria Musculoskeletal Musculoskeletal: Reports none and other Details: Bilateral lower extremity edema ; Denies arthralgias, back pain, difficulty walking, extremity pain, muscle weakness or myalgias Integumentary Reports none; Denies abscess or rash Neurologic Neurologic: Reports none; Denies abnormal gait, confusion, focal weakness, frequent falls, headache(s), loss of vision, numbness, paresthesias, radicular pain, vertigo or weakness Psychiatric Psychiatric: Reports systems reviewed and no addt'l complaints, except as documented and none; Denies behavioral changes, confusion, difficulty concentrating, hallucinations, suicidal ideation, tactile hallucinations or visual hallucinations Endocrine Endocrinology: Denies none, cold intolerance, excessive sweating, fatigue or heat intolerance Hematologic/Lymphatic Hematologic/Lymphatic: Reports none; Denies anemia, easy bleeding or easy bruising Allergic/Immunologic Allergic/Immunologic ED: Denies as per HPI, none, lip swelling, mouth swelling, throat swelling, tongue swelling or hives EXAM Physical Exam Const Vital Signs: 05/03/21 20:38 05/03/21 20:45 Temperature 97.4 F L Temperature Source Temporal Pulse Rate 96 Respiratory Rate 15 Respiratory Effort Normal Non-Labored Blood Pressure 129/68 H Blood Pressure Mean 88 Pulse Ox 98 Oxygen Delivery Method Room Air Positive well nourished and well developed General Appearance ED: well developed and NAD HEENT Reports TM's clear and moist mucous membranes normocephalic and atraumatic; Negative for trauma or tenderness Tympanic Membrane ED: Yes TM's clear Eyes PERRL and EOMs intact bilaterally General Eye ED: Negative for pale conjunctiva or scleral icterus Neck no lymphadenopathy, supple and no JVD General: Negative for tenderness Chest Wall inspection of chest normal and palpation of chest normal Chest: Negative for tenderness Resp normal respiratory effort and clear to auscultation bilaterally Effort and Inspection: Negative for respiratory distress or pain with movement Auscultation: Negative for rhonchi, wheezes or diminished lung sounds Cardio regular rate, regular rhythm, S1 normal heart sound, S2 normal heart sound and no murmurs Peripheral Pulses: pulses 2+ throughout GI normal to inspection, nondistended, normoactive bowel sounds, soft to palpation, non-tender, non-distended and no masses Back/Spine no CVA tenderness and no thoracic nor lumbar tenderness Extremity normal to inspection Extremity Narrative: +2 lower extremity edema from the knee to the feet that is symmetric and bilateral. No ropes or cords palpated. No erythema or warmth noted. General Extremety ED: Yes edema General Extremity: edema Neuro oriented x3, CN's II-XII intact bilaterally, no sensory deficits noted and gait normal Sensorium / Orientation: awake, alert, oriented to person, oriented to place and oriented to time Motor Exam: strength 5/5 throughout and strength abnormal Psych mental status grossly normal Skin no rashes or lesions noted and no wounds MDM MDM MDM Narrative Medical decision making narrative: Patient with negative ultrasound for DVT bilaterally. Etiology of her edema is unclear. I will switch her over to Lasix. Patient advised to follow-up with primary care physician in 3 to 5 days. Suspect patient may have venous stasis. Lab Data Labs: Laboratory Results - last 24 hr 05/03/21 05/03/21 05/03/21 21:42 21:42 21:42 WBC 12.9 H RBC 4.24 Hgb 11.0 L Hct 34.5 L MCV 81.4 MCH 25.9 L MCHC 31.9 L RDW Std Deviation 45.5 H RDW Coeff of Camron 15.5 H Plt Count 301 MPV 10.2 Immature Gran % (Auto) 0.400 Neut % (Auto) 72.6 H Lymph % (Auto) 20.7 Dade % (Auto) 5.4 Eos % (Auto) 0.5 Baso % (Auto) 0.4 Absolute Neuts (auto) 9.3 H Absolute Lymphs (auto) 2.67 Nucleated RBC % 0 Sodium 137 Potassium 3.9 Chloride 105 Carbon Dioxide 28.0 Anion Gap 4 L BUN 12 Creatinine 1.05 H Estim Creat Clear Calc 62.16 Est GFR (MDRD) Af Amer 73 Est GFR (MDRD) Non-Af 61 BUN/Creatinine Ratio 11.4 Glucose 89 Calcium 8.4 L B-Natriuretic Peptide 45.8 Discharge Plan Triage Chief Complaint: Edema ED Provider: Olive Mcgovern Dx/Rx/DC Orders Clinical Impression: Bilateral edema of lower extremity Instructions: ED Peripheral Edema, Bilateral Prescriptions: New furosemide [Lasix] 40 mg tablet 40 mg PO DAILY Qty: 7 RF: 0 No Action tizanidine 4 MG tablet 4 mg PO BID PRN PRN (Reason: Muscle Spasm) RF: 0 sertraline 100 mg Tablet 100 mg PO DAILY RF: 0 omeprazole 20 mg Capsule,Delayed Release(Dr/Ec) 20 mg PO DAILY RF: 0 hydroxyzine pamoate 25 mg Capsule 25 mg PO TID RF: 0 Chantix 1 mg Tablet 1 mg PO BID RF: 0 Primary Care Provider: Angela Whitman Referrals: Angela Whitman, [Primary Care Provider] - 3-5 Days
--- NOTE | 2021-05-03 20:54 | US_ITS ---
STUDY: VENOUS DOPPLER ULTRASOUND - BILATERAL LOWER EXTREMITIES REASON FOR EXAM: Female, 45 years old. BILAT LOWER LEG SWELLING TECHNIQUE: Ultrasound evaluation of the deep vein system to include montanez-scale imaging and compression was performed. Montanez-scale imaging and Doppler sonographic evaluation, including duplex spectral analysis and qualitative color flow sonography, was performed. COMPARISON: None. FINDINGS: RIGHT LEG Common Femoral Vein: Normal compression, spontaneity and augmentation. Normal color Doppler. Common Femoral Vein/Greater Saphenous Junction: Normal compression, spontaneity and augmentation. Normal color Doppler. Deep Femoral Vein: Normal compression, spontaneity and augmentation. Normal color Doppler. Femoral Proximal: Normal compression, spontaneity and augmentation. Normal color Doppler. Femoral Middle: Normal compression, spontaneity and augmentation. Normal color Doppler. Femoral Distal: Normal compression, spontaneity and augmentation. Normal color Doppler. Popliteal Vein: Normal compression, spontaneity and augmentation. Normal color Doppler. Posterior Tibial Vein: Normal compression, spontaneity and augmentation. Normal color Doppler. Peroneal Vein: Normal compression, spontaneity and augmentation. Normal color Doppler. LEFT LEG Common Femoral Vein: Normal compression, spontaneity and augmentation. Normal color Doppler. Common Femoral Vein/Greater Saphenous Junction: Normal compression, spontaneity and augmentation. Normal color Doppler. Deep Femoral Vein: Normal compression, spontaneity and augmentation. Normal color Doppler. Femoral Proximal: Normal compression, spontaneity and augmentation. Normal color Doppler. Femoral Middle: Normal compression, spontaneity and augmentation. Normal color Doppler. Femoral Distal: Normal compression, spontaneity and augmentation. Normal color Doppler. Popliteal Vein: Normal compression, spontaneity and augmentation. Normal color Doppler. Posterior Tibial Vein: Normal compression, spontaneity and augmentation. Normal color Doppler. Peroneal Vein: Normal compression, spontaneity and augmentation. Normal color Doppler. US/Venous Duplex Imag/Donato Extrem IMPRESSION: Normal venous Doppler ultrasound of the bilateral lower extremities. Electronically Signed: Matthias Fajardo DO at 22:42 EDT Tel , Service support ,
[2021-05-03 21:51] LABS: Absolute Lymphocyte Count 2.67 X10^3/uL (0.83-4.51); Absolute Neutrophil Count 9.3 X10^3/uL (2.0-7.7); Basophil# 0.05 X10^3/uL; Basophil% 0.4 % (0-1); Eosinophil# 0.07 X10^3/uL; Eosinophils% 0.5 % (0-5); Hematocrit 34.5 % (37-47); Lymphocyte # 2.67 X10^3/ul (0.83-4.51); Lymphocyte % 20.7 % (19-41); Mean Corp Hgb Conc 31.9 g/dL (32-36); Mean Corpuscular Hgb 25.9 pg (27.0-32.0); Mean Corpuscular Volume 81.4 fL (81-99); Mean Platelet Vol. 10.2 fl (6.2-12.0); Monocyte% 5.4 % (0-10); NRBC Flagged by Analyzer 0 % (0-5); Neutrophil # 9.33 X10^3/uL (2.7-7.7); Neutrophil % 72.6 % (47-70); Platelet Count 301 K/mm3 (150-450); RBC Distribution Width CV 15.5 % (11.6-14.6); RBC Distribution Width SD 45.5 fl (35.1-43.9); Red Blood Count 4.24 M/mm3 (4.2-5.4); White Blood Count 12.9 K/mm3 (4.4-11.0)
[2021-05-03 22:09] LABS: BNP,B-Type NATRIURETIC PEPTIDE 45.8 pg/mL (0-100)
[2021-05-03 22:10] LABS: Anion Gap 4 (5-15); BUN 12 mg/dL (7-18); BUN/Creat Ratio 11.4 RATIO (10-20); Calcium,Total 8.4 mg/dL (8.5-10.1); Chloride 105 mmol/L (98-107); Creatinine, Serum 1.05 mg/dL (0.55-1.02); EST Glomerular Filtration Rate 61 mL/min (>60); Est Glom Filt Rate - Afr Amer 73 mL/min (>60); Estimated Creatinine Clearance 62.16 ml/min; Glucose 89 mg/dL (74-106); Potassium 3.9 mmol/L (3.5-5.1); Sodium Level 137 mmol/L (136-145)
== END 2021-05-03 22:28 | disposition home or self-care (01) ==
LOC: ED 21:04
PROVIDERS: Emergency Provider Emergency Medicine
DX: M79.89 Other specified soft tissue disorders (principal); F17.210 Nicotine dependence, cigarettes, uncomplicated
CPT/HCPCS: 80048; 83880; 85025; 93970; 99285; A4216

== ENCOUNTER 2021-10-21 13:00 | Outpatient (RCR) | payer MEDICAID, SELFPAY ==
--- NOTE | 2021-09-19 15:47 | HP.PTEVAL ---
Patient's Visit Information DAVID CLAY is a 45 year old F referred to Physical Therapy by MARCIA Monterroso with a diagnosis of LUMBOSACRAL RADICULOPATHY, DDD LUMBAR ,DDD THORACIC ,THORACIC RADICULOPATHY. Date of Evaluation: 09/19/21 Physical Therapist: Aaron Sow, PT, Cert MDT, OCS - Visit Plan Frequency: 2x /Week Duration: 4 Weeks Plan: PT INTERVETIONS HEP, POSTURAL EX'S,DLS , LE FLABILITY AND MODALTIES - Subjective This 45 y/o female presents tp physical therapy with thoracic and lumbar pain. This has thoracic and back pain many years bending/twisting felt onset of pain. Patient pain has affected ability to work . Patent has prior PT in past. Patient has had epidural injection ~ 8months ago. Seen DR today because injection was denied. Also ,wants to get MRI. Located symmetrical lumbar .Aggravating factors bending, twisting, lifting ,sitting and walking some better.. Alleviating factors movement is better. MEDS : flexeral . Coughing/sneezing -. Bowel/bladder-. Patient occasional paresthesia left leg. Pain described as sharp stabbing pain. Patient sleeping good. Patient pain affects QOL ,ADLS' and housework tasks. SOCIAL: single. VOCATION: unemployed - Pain Bilateral Back Pain Intensity (Out of 10): 7 Pain Intensity Range: 10 - Objective POSTURE: mild forward posture. GAIT: reciprocal gait. NEURO: denies paresthesia/tingling ,reflexes L3-4,L4-5,L5-S1 1/3. SYMMTRIES: align. PALAPTION: SI. LUMBAR ROM: flexion mod loss pain, extension min/mod loss pain, side glides min/mod loss. MMT: quads/hams 4/5 ,hip flexion/abduction/extension mod loss. FLEXABLITY: mod loss. THORACIC ROM: flexion min loss, extension min loss, rotation min loss - Special Tests Thoracic Sitting: Flexion - Mechanical Response: No effect Thoracic Sitting: Flexion - Symptoms During Testing: No effect Thoracic Sitting: Flexion - Symptoms After Testing: No effect Thoracic Sitting: Extension - Mechanical Response: No effect Thoracic Sitting: Extension - Symptoms During Testing: No effect Thoracic Sitting: Extension - Symptoms After Testing: No effect Thoracic Sitting: Right rotation - Mechanical Response: No effect Thoracic Sitting: Right Rotation - Symptoms During Testing: No effect Thoracic Sitting: Right Rotation - Symptoms After Testing: No effect Thoracic Sitting: Left rotation - Mechanical Response: No effect Thoracic Sitting: Left Rotation - Symptoms During Testing: No effect Thoracic Sitting: Left Rotation - Symptoms After Testing: No effect L/S Slump test left side: Negative L/S Slump test right side: Negative L/S Left Straight Leg Raise: Negative L/S Right Straight Leg Raise: Negative Lumbar Standing: Flexion - Mechanical Response: No effect Lumbar Standing: Flexion - Symptoms During Testing: Increases Lumbar Standing: Flexion - Symptoms After Testing: Worse Lumbar Standing: Extension - Mechanical Response: No effect Lumbar Standing: Extension - Symptoms During Testing: Increases Lumbar Standing: Extension - Symptoms After Testing: No worse Lumbar Standing: Right Side Glides - Mechanical Response: No effect Lumbar Standing: Right Side [place] - Symptoms During Testing: No effect Lumbar Standing: Right Side [place] - Symptoms After Testing: No effect Lumbar Standing: Left Side [place] - Mechanical Response: No effect Lumbar Standing: Left Side [place] - Symptoms During Testing: No effect Lumbar Standing: Left Side [place] - Symptoms After Testing: No effect Lumbar Lying: Flexion - Mechanical Response: No effect Lumbar Lying: Flexion - Symptoms During Testing: No effect Lumbar Lying: Flexion - Symptoms After Testing: No effect Lumbar Lying: Extension - Mechanical Response: No effect Lumbar Lying: Extension - Symptoms During Testing: Abolishes Lumbar Lying: Extension - Symptoms After Testing: Better - Balance/Special Test Scores Oswestry Low Back Score: 23 - Goals Goal 1:: I with HEP for back paon Goal Time Frame: 4-6 Weeks Goal 2:: Improve posture for ADLS' 90% of the time. Goal Time Frame: 4-6 Weeks Goal 3:: Patient demonstrate 50% improvement with decrease back pain to improve function. Goal Time Frame: 4-6 Weeks Goal 4:: Patient to improve lumbar ROM for function of recovery Goal Time Frame: 4-6 Weeks Goal 5:: Patient to improve back owestry score by 5 points to improve function . Goal Time Frame: 4-6 Weeks - Rehabilitation Potential Physical Therapy Diagnosis: This patient has symmetrical lumbar with possible derangement with radicular symptoms with pain during repeated motion, positioning thus benefit from skilled PT Rehabilitation Potential: Good - Anticipated Interventions Patient/Client Instruction: Educate patient on: Condition, Plan of Care For the Purpose of:: To decrease pain, To increase ROM, To improve nutrient delivery to tissue, To increase oxygenation perfusion, To improve muscle performance and motor function, To improve ability to perform ADL's, To increase flexibility/ROM, To improve balance, To reduce risk of recurrence Therapeutic Exercise to Include: Strength training, Endurance training, Body mechanics, Postural training, Flexibilty training, Dynamic Lumbar Stabilization For the Purpose of:: To decrease pain, To increase ROM, To improve muscle performance and motor function, To improve ability to perform ADL's, To increase tolerance to activity/condition/position, To improve ability of physical actions for home/community/work/leisure, To improve gait and locomotor functions, To increase flexibility/ROM TENS: Yes IF ES: Yes Cryotherapy (ice pack, ice massage): Yes Thermo therapy (hot pack): Yes Ultrasound (thermal/non thermal): Yes For the Purpose of:: To decrease pain, To improve nutrient delivery to tissue, To increase oxygenation perfusion, To improve health of tissue, To decrease soft tissue restriction Thank you for the opportunity to evaluate your patient. For Medicare and Medicare HMO plans, please review the plan of care and approve it. It will need to be FAXED BACK to us at [phone] for Medicare purposes. For Medicare only, by signing this I certify the plan of care. Please let me know if there are questions or concerns regarding this plan of care. Physician Signature: Date:
--- NOTE | 2021-11-27 09:18 | HP.PT.NRP ---
DAVID CLAY was seen in my office for initial evaluation on 09/19/21. The following Plan of Care was established for this patient: Initial Frequency: 2x /Week Initial Duration: 4 Weeks Patient/Client Instruction: Educate patient on: Condition, Plan of Care For the Purpose of:: To decrease pain, To increase ROM, To improve nutrient delivery to tissue, To increase oxygenation perfusion, To improve muscle performance and motor function, To improve ability to perform ADL's, To increase flexibility/ROM, To improve balance, To reduce risk of recurrence Therapeutic Exercise to Include: Strength training, Endurance training, Body mechanics, Postural training, Flexibilty training, Dynamic Lumbar Stabilization For the Purpose of:: To decrease pain, To increase ROM, To improve muscle performance and motor function, To improve ability to perform ADL's, To increase tolerance to activity/condition/position, To improve ability of physical actions for home/community/work/leisure, To improve gait and locomotor functions, To increase flexibility/ROM TENS: Yes IF ES: Yes Cryotherapy (ice pack, ice massage): Yes Thermo therapy (hot pack): Yes Ultrasound (thermal/non thermal): Yes For the Purpose of:: To decrease pain, To improve nutrient delivery to tissue, To increase oxygenation perfusion, To improve health of tissue, To decrease soft tissue restriction This patient was last seen in our office . Pertinent comments regarding their Physical therapy will appear below: This patient was seen for PT for thoracic and lumbar pain for HEP ,postural ex's ,DLS and strengthening thus is d/c At this point I will be discontinuing this patient from physical therapy. I would be happy to see this patient again in the future if found appropriate by the physician. Thank you! Aaron Sow, PT, Cert MDT, OCS Balance/Gait/Functional tests - Balance/Special Test Scores Oswestry Low Back Score: 9
== END 2021-10-21 19:00 | disposition home or self-care (01) ==
LOC: PT 13:00
PROVIDERS: Referring Provider Nurse Practitioner Family; Visit Provider Nurse Practitioner Family
DX: M51.34 Other intervertebral disc degeneration, thoracic region (principal); M51.37 Other intervertebral disc degeneration, lumbosacral region; M47.24 Other spondylosis with radiculopathy, thoracic region; M47.27 Other spondylosis with radiculopathy, lumbosacral region
CPT/HCPCS: 97110; 97162

== ENCOUNTER 2023-08-24 23:16 | Emergency (ER) | payer MEDICAID, SELFPAY ==
[2023-08-24 23:17] VITALS: BP 134/70; PULSE 116; RESP 18; TEMP 36.4; O2SAT 100; BMI 39.6
--- NOTE | 2023-08-24 23:41 | EX.ED.DYSGE1 ---
HPI History of Present Illness Chief Complaint: Cold Sx Detail of Chief Complaint: Cough and shortness of breath Informant: patient Narrative Narrative: Patient presents emergency department complaint of cough for about a week. Patient was seen in urgent care 2 days ago and was ordered an antibiotic and an inhaler but she could not fill it because she does not have insurance. Patient has not had a fever or chills or sweats. Cough is nonproductive. She is a smoker. [facility] Medical History (Updated 08/25/23 @ 00:[address] Olive Mcgovern DO) Disc degeneration Home Medications tizanidine 4 mg tablet 4 mg PO BID PRN PRN Muscle Spasm 01/21/20 [History Last Taken Unknown] hydroxyzine pamoate 25 mg capsule 25 mg PO TID 04/02/21 [History Last Taken Unknown] omeprazole 20 mg capsule,delayed release 20 mg PO DAILY 04/02/21 [History Last Taken Unknown] sertraline 100 mg tablet 100 mg PO DAILY 04/02/21 [History Last Taken Unknown] varenicline 1 mg tablet (Chantix) 1 mg PO BID 04/02/21 [History Last Taken Unknown] furosemide 40 mg tablet (Lasix) 40 mg PO DAILY #7 tabs 05/03/21 [Rx Last Taken Unknown] doxycycline monohydrate 100 mg capsule 100 mg PO BID #20 CAPSULES 08/25/23 [Rx Last Taken Unknown] prednisone 20 mg tablet 20 mg PO BID #10 tabs 08/25/23 [Rx Last Taken Unknown] Allergy/AdvReac Type Severity Reaction Status Date / Time cefaclor [From Ceclor] Allergy Hives Verified 08/24/23 23:17 cephalexin monohydrate Allergy Hives Verified 08/24/23 23:17 [From Keflex] Penicillins [PCN] Allergy Hives Verified 08/24/23 23:17 Social History Smoking Status: Current every day smoker tobacco type: cigarettes ROS ROS ED Review of Systems ROS Unobtainable: other Constitutional Constitutional ED: Reports lethargy; Denies chills, fever(s), sweats or weight loss Eyes Eyes: Denies blurry vision, change in vision or diplopia ENT ENT ED: Denies rhinorrhea or sore throat Cardiovascular Cardiovascular: Denies chest pain, orthopnea or racing heartbeat Respiratory/Chest Respiratory/Chest: Reports cough and dyspnea; Denies dyspnea on exertion, orthopnea or sputum Gastrointestinal Gastrointestinal: Denies abdominal pain, diarrhea, nausea or vomiting Genitourinary Genitourinary ED: Denies dysuria, hematuria or urinary frequency Musculoskeletal Musculoskeletal: Denies arthralgias, back pain, myalgias or neck pain Integumentary Denies abscess, Abrasions or rash Neurologic Neurologic: Denies headache(s) or weakness Psychiatric Psychiatric: Denies anxiety, depression or suicidal thoughts Endocrine Endocrinology: Denies polydipsia, polyphagia or polyuria Hematologic/Lymphatic Hematologic/Lymphatic: Denies easy bleeding, easy bruising or lymphadenopathy Allergic/Immunologic Allergic/Immunologic ED: Denies mouth swelling, tongue swelling or urticaria EXAM Physical Exam Const Vital Signs: 08/24/23 23:17 08/24/23 23:16 08/25/23 00:02 Temperature 97.5 F L Temperature Source Temporal Pulse Rate 116 H 81 Respiratory Rate 18 17 Respiratory Effort Normal Non-Labored Respiratory Pattern Normal Normal Blood Pressure 134/70 H Blood Pressure Mean 91 Pulse Ox 100 Oxygen Delivery Method 08/25/23 00:02 Temperature Temperature Source Pulse Rate Respiratory Rate Respiratory Effort Respiratory Pattern Blood Pressure Blood Pressure Mean Pulse Ox 94 Oxygen Delivery Method Room Air Positive well nourished and well developed General Appearance ED: well developed and NAD HEENT Reports TM's clear and moist mucous membranes normocephalic and atraumatic; Negative for trauma or tenderness Tympanic Membrane ED: Yes TM's clear Eyes PERRL and EOMs intact bilaterally General Eye ED: Negative for pale conjunctiva or scleral icterus Neck no lymphadenopathy, supple and no JVD General: Negative for tenderness Chest Wall inspection of chest normal and palpation of chest normal Chest: Negative for tenderness Resp normal respiratory effort Resp Narrative: Faint bilateral expiratory wheezes. No accessory muscle use or retractions. No rales noted. Effort and Inspection: Negative for respiratory distress or pain with movement Auscultation: wheezes; Negative for rhonchi or diminished lung sounds Cardio regular rate, regular rhythm, S1 normal heart sound, S2 normal heart sound and no murmurs Peripheral Pulses: pulses 2+ throughout GI normal to inspection, nondistended, normoactive bowel sounds, soft to palpation, non-tender, non-distended and no masses Back/Spine no CVA tenderness and no thoracic nor lumbar tenderness Extremity normal to inspection General Extremety ED: Negative for edema General Extremity: Negative for edema Neuro oriented x3, CN's II-XII intact bilaterally, no sensory deficits noted and gait normal Sensorium / Orientation: awake, alert, oriented to person, oriented to place and oriented to time Motor Exam: strength 5/5 throughout and strength abnormal Psych mental status grossly normal Skin no rashes or lesions noted and no wounds MDM MDM MDM Narrative Medical decision making narrative: She didPatient presents with cough and respiratory symptoms for about a week. Not fill her antibiotic because she has no insurance. Patient had a COVID and flu test that were negative here. She had a chest x-ray that showed some increased markings which may be consistent with reactive airway disease and/or viral infection. Patient was given a DuoNeb aerosol and had improvement in her symptoms with that. She was started on prednisone. I started her on doxycycline. Patient will be given a prescription for Doxy and prednisone and dispensed an albuterol MDI. Advised to follow-up with primary care physician in 3 to 5 days. She is to return if increasing shortness of breath or condition worsening way. Radiography Diagnostic Testing: Clinical Impression(s) from Imaging Studies Chest X-Ray 08/24/23 23:52 IMPRESSION: Findings suggest acute exacerbation of reactive airway disease and/or viral infection. Electronically Signed: Lee Ann Solis MD at 0:06 EDT Reading Location ID and State: [facility] / MD , Service support , 1 view chest x-ray obtained interpreted by myself as increased markings both lungs but no definite consolidation. No pneumothorax. Radiology was in agreement. Discharge Plan Triage Chief Complaint: Cold Sx ED Provider: Olive Mcgovern Dx/Rx/DC Orders Clinical Impression: Asthmatic bronchitis Instructions: ED Bronchitis with Wheezing (Adult) Prescriptions: New doxycycline monohydrate 100 mg capsule 100 mg PO BID Qty: 20 0RF prednisone 20 mg tablet 20 mg PO BID Qty: 10 0RF No Action tizanidine 4 MG tablet 4 mg PO BID PRN PRN (Reason: Muscle Spasm) sertraline 100 mg Tablet 100 mg PO DAILY omeprazole 20 mg Capsule,Delayed Release(Dr/Ec) 20 mg PO DAILY hydroxyzine pamoate 25 mg Capsule 25 mg PO TID Chantix 1 mg Tablet 1 mg PO BID furosemide [Lasix] 40 mg tablet 40 mg PO DAILY Qty: 7 0RF Primary Care Provider: Angela Whitman Referrals: Angela Whitman, [Primary Care Provider] - 3-5 Days Disposition Disposition: Home, Self Care
--- NOTE | 2023-08-24 23:52 | RAD_ITS ---
STUDY: X-RAY CHEST REASON FOR EXAM: Female, 47 years old patient with cough. TECHNIQUE: Single AP portable view of the chest. COMPARISON: Chest radiograph dated April 20, 2015. FINDINGS: There is interstitial thickening and peribronchial cuffing primarily in the perihilar areas and at the lung bases. There is no obvious airspace consolidation. The lungs are expanded. There is no demonstrated pleural abnormality. Normal size heart. Normal mediastinum and delia. Normal visualized pulmonary arteries. Normal visualized aortic arch and descending thoracic aorta. There are diffuse degenerative changes of the visualized thoracic spine. Normal visualized ribs, clavicles, and shoulders. There is no demonstrated abnormality of the visualized soft tissue structures of the upper abdomen. RAD/Chest 1 View (Portable) IMPRESSION: Findings suggest acute exacerbation of reactive airway disease and/or viral infection. Electronically Signed: Lee Ann Solis MD at 0:06 EDT ,
[2023-08-25] MEDS: Ipratropium/Albuterol Sulfate 3 ML AMPUL.NEB INHALATION (00:01)
[2023-08-25 00:02] VITALS: PULSE 81; RESP 17; O2SAT 94
[2023-08-25] MEDS: Albuterol Sulfate 8 gm Inhaler (60 puffs) 2 PUFF INHALATION (01:05)
[2023-08-25] MEDS: predniSONE 20 MG Tablet 40 MG PO (01:05)
[2023-08-25] MEDS: Doxycycline 100 MG CAPSULE PO (01:05)
== END 2023-08-25 01:07 | disposition home or self-care (01) ==
PROVIDERS: Emergency Provider Emergency Medicine; Visit Provider Emergency Medicine
DX: J45.909 Unspecified asthma, uncomplicated (principal); F17.210 Nicotine dependence, cigarettes, uncomplicated
CPT/HCPCS: 71045; 87428; 94640; 99283

== ENCOUNTER 2023-08-28 11:44 | Emergency (ER) | payer MEDICAID, SELFPAY ==
[2023-08-28 11:45] VITALS: BP 129/76; PULSE 100; RESP 24; TEMP 36.3; O2SAT 99; BMI 38.9
--- NOTE | 2023-08-28 11:54 | EX.ED.DYSGE1 ---
HPI History of Present Illness Chief Complaint: Abn Labs Detail of Chief Complaint: Elevated white count, low hemoglobin and respiratory symptoms Informant: patient Onset/Context/Timing Onset: Weeks (Symptoms started 1 to 2 weeks ago) Context: Sudden Onset Timing: Continuous Quality: Cough, shortness of breath, VIDAL, wheezing Location: Respiratory Current Severity: Mild Maximum Severity: Moderate Worsened by: Activity Relieved by: Nothing Associated Symptoms Associated Symptoms: Upper respiratory symptoms Narrative Narrative: Patient is a 37-year-old woman with history of asthma as a child and is a smoker of 1 pack/day who presents with abnormal labs. She states she was told there is something wrong with her white count and hemoglobin. She states she has had 2 chest x-rays. The second 1 has not been read yet. She denies history of VTE. Denies leg pain, swelling discoloration. She is reportedly had negative COVID and influenza test. She does complain of mild headache. She denies photophobia or neck stiffness. She does report nasal congestion and sore throat. She denies ear pain or ear drainage. She denies chest discomfort. She does report shortness of breath, dyspnea on exertion and cough which is essentially nonproductive. She states she has not been able to smoke is much as normal. She does endorse GI symptoms as well. She also endorses myalgias arthralgias. She denies dysuria, frequency, urgency or hematuria. She denies rash. Patient is presently on prednisone and levofloxacin. She has been on levofloxacin for 2 days and prednisone for several days. Prior similar symptoms: Yes Recent Illness/Hospitalization: Yes [facility] Medical History Disc degeneration Home Medications tizanidine 4 mg tablet 4 mg PO BID PRN PRN Muscle Spasm 01/21/20 [History Last Taken Unknown] hydroxyzine pamoate 25 mg capsule 25 mg PO TID 04/02/21 [History Last Taken Unknown] omeprazole 20 mg capsule,delayed release 20 mg PO DAILY 04/02/21 [History Last Taken Unknown] sertraline 100 mg tablet 100 mg PO DAILY 04/02/21 [History Last Taken Unknown] varenicline 1 mg tablet (Chantix) 1 mg PO BID 04/02/21 [History Last Taken Unknown] furosemide 40 mg tablet (Lasix) 40 mg PO DAILY #7 tabs 05/03/21 [Rx Last Taken Unknown] doxycycline monohydrate 100 mg capsule 100 mg PO BID #20 CAPSULES 08/25/23 [Rx Last Taken Unknown] prednisone 20 mg tablet 20 mg PO BID #10 tabs 08/25/23 [Rx Last Taken Unknown] albuterol sulfate 90 mcg/actuation aerosol inhaler (Ventolin HFA) 2 puff inhalation Q4H PRN PRN Wheezing ##1 08/28/23 [Rx Last Taken Unknown] Allergy/AdvReac Type Severity Reaction Status Date / Time cefaclor [From Ceclor] Allergy Hives Verified 08/24/23 23:17 cephalexin monohydrate Allergy Hives Verified 08/24/23 23:17 [From Keflex] Penicillins [PCN] Allergy Hives Verified 08/24/23 23:17 Social History (Updated 08/28/23 @ 11:[address] Mikey Valle MD) household members: spouse Smoking Status: Current every day smoker tobacco type: cigarettes substance use type: does not use ROS ROS ED Constitutional Constitutional ED: Reports chills, fever(s) and subjective; Denies weight loss Eyes Eyes: Denies blurry vision, change in vision or diplopia ENT ENT ED: Denies ear pain, rhinorrhea or sore throat Cardiovascular Cardiovascular: Reports racing heartbeat; Denies chest pain, orthopnea, palpitations or paroxysmal nocturnal dyspnea Respiratory/Chest Respiratory/Chest: Reports cough, dyspnea and dyspnea on exertion; Denies orthopnea, paroxysmal nocturnal dyspnea or sputum Gastrointestinal Gastrointestinal: Denies abdominal pain, melena, nausea or vomiting Genitourinary Genitourinary ED: Denies dysuria, hematuria or urinary frequency Musculoskeletal Musculoskeletal: Reports arthralgias and myalgias; Denies back pain or neck pain Integumentary Denies rash Neurologic Neurologic: Reports weakness; Denies paresthesias Psychiatric Psychiatric: Denies anxiety Endocrine Endocrinology: Denies cold intolerance or heat intolerance Hematologic/Lymphatic Hematologic/Lymphatic: Reports systems reviewed and no addt'l complaints, except as documented EXAM Physical Exam Const Vital Signs: 08/28/23 11:45 08/28/23 12:14 08/28/23 12:14 Temperature 97.3 F L Temperature Source Temporal Pulse Rate 100 96 Respiratory Rate 24 H 18 Respiratory Pattern Normal Blood Pressure 129/76 H Blood Pressure Mean 93 Pulse Ox 99 98 Oxygen Delivery Method Room Air Positive well nourished, well developed and obese Constitutional Narrative: Patient is tachypneic at rest with increased tachypnea with conversation. General Appearance ED: well developed; Negative for cyanotic, diaphoretic, NAD or pallor Nutritional Appearance: obese HEENT Reports dry mucous membranes HEENT Narrative: Is atraumatic and normocephalic. Ears are normal. External auditory canal is normal. TMs are normal. Nares patent with mild discharge. Posterior pharynx out erythema or exudate. Mouth ED: Yes dry mucous membranes Mouth: dry mucous membranes Eyes PERRL and EOMs intact bilaterally Eyes Narrative: Conjunctival is pink. The conjunctive is not in directed. General Eye ED: Negative for pale conjunctiva or scleral icterus Neck no lymphadenopathy, supple and no JVD Neck Narrative: Trachea is midline. There is no inspiratory stridor. Chest Wall inspection of chest normal and palpation of chest normal Resp No normal respiratory effort and No clear to auscultation bilaterally Auscultation: wheezes expiratory wheezes, scattered wheezes and throughout Cardio regular rate, regular rhythm, S1 normal heart sound, S2 normal heart sound and no murmurs GI normal to inspection, nondistended, normoactive bowel sounds, non-tender, non-distended and no masses; Negative for hepatosplenomegaly Palpation: soft Back/Spine no CVA tenderness Extremity normal to inspection Extremity Narrative: There is no asymmetry, swelling, discoloration, leg vein distention, palpable cords or tenderness along the distribution of the deep venous system. General Extremety ED: Negative for edema or tenderness General Extremity: Negative for edema Neuro oriented x3, CN's II-XII intact bilaterally and no sensory deficits noted Sensorium / Orientation: alert Psych mental status grossly normal Skin no rashes or lesions noted, no wounds and skin turgor normal General Skin Exam: Negative for jaundice or pallor MDM MDM MDM Narrative Medical decision making narrative: With respiratory symptoms that has not improved and spite of antibiotics and prednisone. Since patient is still wheezing we will treat with albuterol aerosol treatments x3. She was given a burst of prednisone, 60 mg. Chest x-ray was obtained to evaluate for pneumonia. Blood work was obtained to assess for endorgan dysfunction. History & Record Review Additional record(s) reviewed:: Prior ED visit (Patient seen August 24 for asthmatic bronchitis.) and Prior labs (Lab work was reviewed. Most recent lab work is from 2020.) Lab Data Attestation: I reviewed the patient's lab results. Lab results narrative: On [facility] is normal. Patient does have mild anemia with an H&H of 9.5 and 32.7 with MCV of 69. This to be consistent with iron deficient EMEA. Comprehensive metabolic panel is better. Glucose is slightly elevated 118. Labs: Laboratory Results - last 24 hr 08/28/23 12:15 WBC 9.0 RBC 4.70 Hgb 9.5 L Hct 32.7 L MCV 69.6 L MCH 20.2 L MCHC 29.1 L RDW Std Deviation 46.5 H RDW Coeff of Camron 19.3 H Plt Count 322 MPV 10.8 Immature Gran % (Auto) 0.400 Neut % (Auto) 76.9 H Lymph % (Auto) 17.2 L Hale % (Auto) 5.3 Eos % (Auto) 0.0 Baso % (Auto) 0.2 Absolute Neuts (auto) 6.9 Absolute Lymphs (auto) 1.55 Nucleated RBC % 0 Sodium 139 Potassium 3.1 L Chloride 106 Carbon Dioxide 26.0 Anion Gap 7 BUN 5 L Creatinine 0.72 Estim Creat Clear Calc 88.79 Est GFR (MDRD) Af Amer 112 Est GFR (MDRD) Non-Af 93 BUN/Creatinine Ratio 7.0 L Glucose 118 H Lactic Acid 1.4 Calcium 8.7 Total Bilirubin 0.50 AST 12 L ALT 29 Alkaline Phosphatase 75 Total Protein 6.9 Albumin 2.9 L Globulin 4.0 Albumin/Globulin Ratio 0.7 L Radiography Chest X-Ray - ED: 2 View and Read by ED Physician (Patient seen independently reviewed interpreted by me as positive for left-sided pneumonia involving the left lower lobe and left upper lobe.) Diagnostic Testing: Clinical Impression(s) from Imaging Studies Chest X-Ray 08/28/23 12:20 IMPRESSION: Left-sided pneumonia involving the upper and lower lobes. Electronically Signed: Skip Paulino MD at 12:57 EDT , Treatment and Re-Evaluation :: Was reassessed at 1400. She is no longer wheezing. She was given a prescription for albuterol MDI. She was instructed to continue taking the prednisone. She was instructed to continue taking levofloxacin. Curb 65 score is 0. Low risk group with a 0.6% 30-day mortality. Patient be discharged to home. Discharge Plan Triage Chief Complaint: Abn Labs ED Provider: Mikey Valle Dx/Rx/DC Orders Clinical Impression: Microcytic hypochromic anemia, Community acquired pneumonia of left lung, Acute bronchospasm Instructions: ED Pneumonia (Adult) Prescriptions: New albuterol sulfate [Ventolin HFA] 90 mcg/actuation HFA aerosol inhaler 2 puff inhalation Q4H PRN PRN (Reason: Wheezing) Qty: 1 0RF No Action tizanidine 4 MG tablet 4 mg PO BID PRN PRN (Reason: Muscle Spasm) sertraline 100 mg Tablet 100 mg PO DAILY omeprazole 20 mg Capsule,Delayed Release(Dr/Ec) 20 mg PO DAILY hydroxyzine pamoate 25 mg Capsule 25 mg PO TID Chantix 1 mg Tablet 1 mg PO BID furosemide [Lasix] 40 mg tablet 40 mg PO DAILY Qty: 7 0RF doxycycline monohydrate 100 mg capsule 100 mg PO BID Qty: 20 0RF prednisone 20 mg tablet 20 mg PO BID Qty: 10 0RF Stand Alone Forms: ED Work / School Excuse Primary Care Provider: Angela Whitman Referrals: Angela Whitman, [Primary Care Provider] - Activity Restrictions/Additional Instructions: Take the prednisone and antibiotic as instructed until gone Disposition Disposition: Home, Self Care
[2023-08-28] MEDS: predniSONE 20 MG Tablet 60 MG PO (12:04)
[2023-08-28] MEDS: 0.9% Normal Saline (1000mL) 1,000 ML 1000 ML IV (12:05)
[2023-08-28] MEDS: Albuterol 2.5 MG/3 ML VIAL.NEB. INHALATION (12:11)
[2023-08-28 12:14] VITALS: PULSE 96; RESP 18; O2SAT 98
--- NOTE | 2023-08-28 12:20 | RAD_ITS ---
EXAM: XR CHEST, 2 VIEWS CLINICAL INDICATION: Cough x2 weeks, negative COVID TECHNIQUE: Frontal and lateral views of the chest. COMPARISON: XR Chest dated 08/24/2023 FINDINGS: LUNGS AND PLEURAL SPACES: Patchy infiltrate within the left lung consistent with pneumonia. HEART: Normal heart size. MEDIASTINUM: No mediastinal or hilar mass. BONES/JOINTS: No acute abnormality. RAD/Chest PA and Lateral IMPRESSION: Left-sided pneumonia involving the upper and lower lobes. Electronically Signed: Skip Paulino MD at 12:57 EDT ,
[2023-08-28 12:29] LABS: Absolute Lymphocyte Count 1.55 X10^3/uL (0.83-4.51); Absolute Neutrophil Count 6.9 X10^3/uL (2.0-7.7); Basophil# 0.02 X10^3/uL; Basophil% 0.2 % (0-1); Hematocrit 32.7 % (37-47); Hemoglobin 9.5 g/dL (12.0-15.0); Lymphocyte # 1.55 X10^3/ul (0.83-4.51); Lymphocyte % 17.2 % (19-41); Mean Corp Hgb Conc 29.1 g/dL (32-36); Mean Corpuscular Hgb 20.2 pg (27.0-32.0); Mean Corpuscular Volume 69.6 fL (81-99); Mean Platelet Vol. 10.8 fl (6.2-12.0); Monocyte# 0.48 X10^3/uL; Monocyte% 5.3 % (0-10); NRBC Flagged by Analyzer 0 % (0-5); Neutrophil % 76.9 % (47-70); Platelet Count 322 K/mm3 (150-450); RBC Distribution Width CV 19.3 % (11.6-14.6); RBC Distribution Width SD 46.5 fl (35.1-43.9)
[2023-08-28 12:57] LABS: Lactic Acid 1.4 mmol/L (0.4-1.9)
[2023-08-28 12:58] LABS: ALB/GLOB Ratio 0.7 RATIO (0.9-2.4); AST(SGOT) 12 U/L (15-37); Alanine Aminotransfer ALT/SGPT 29 U/L (13-56); Albumin, Serum 2.9 g/dL (3.2-5.0); Alkaline Phosphatase 75 U/L (45-117); Anion Gap 7 (5-15); BUN 5 mg/dL (7-18); Calcium,Total 8.7 mg/dL (8.5-10.1); Chloride 106 mmol/L (98-107); Creatinine, Serum 0.72 mg/dL (0.55-1.02); EST Glomerular Filtration Rate 93 mL/min (>60); Est Glom Filt Rate - Afr Amer 112 mL/min (>60); Estimated Creatinine Clearance 88.79 ml/min; Glucose 118 mg/dL (74-106); Potassium 3.1 mmol/L (3.5-5.1); Protein, Total 6.9 g/dL (6.4-8.2); Sodium Level 139 mmol/L (136-145)
[2023-08-28 14:05] VITALS: BP 125/68; PULSE 99; RESP 16; O2SAT 97
== END 2023-08-28 14:20 | disposition home or self-care (01) ==
PROVIDERS: Emergency Provider Emergency Medicine; Visit Provider Emergency Medicine
DX: D50.9 Iron deficiency anemia, unspecified (principal); J18.9 Pneumonia, unspecified organism; J98.01 Acute bronchospasm; F17.210 Nicotine dependence, cigarettes, uncomplicated
CPT/HCPCS: 71046; 80053; 83605; 85025; 99282; A4216

== ENCOUNTER 2023-10-19 13:16 | Emergency (ER) | payer MEDICAID, SELFPAY ==
[2023-10-19 13:17] VITALS: BP 127/70; PULSE 107; RESP 18; TEMP 35.8; O2SAT 100; BMI 39.4
--- NOTE | 2023-10-19 13:41 | ED.VIS.BACK ---
HPI History of Present Illness Chief Complaint: Back Detail of Chief Complaint: Exacerbation of chronic back pain Informant: patient Onset/Context/Timing Onset: Days (Pain has increased the past 3 days.) Context: Onset with activity Chronic pain exacerbated by: Movement Timing: Continuous and Waxes and wanes Quality: Dull and Aching Location: Lumbar Current Severity: Moderate Maximum Severity: Severe Worsened by: improves with Movement, Ambulation, Bending and Lifting; worse with Night time pain Relieved by: Nothing Associated Symptoms Associated Symptoms: - (Denies saddle paresthesia or anesthesia. Denies foot drop with walking. Denies buckling of knees going up or down steps.); Negative for Numbness, Tingling, Radiation to Right Leg, Radiation to Left Leg, Fever, Abdominal Pain, Dysuria, Unable to Ambulate, Unable to Transfer, Urinary Retention, Urinary Incontinence, Constipation or Fecal Incontinence Narrative Narrative: Patient is a 48-year-old woman with a BMI of 39.4 who presents with acute on chronic lumbar back pain. She has history of degenerative disc disease. She was in pain management. She was unable to follow-up with pain management since she lost her insurance. She denies fever, chills night sweats. She denies any recent procedure. She denies bowel bladder dysfunction. She denies saddle paresthesia or anesthesia. She denies foot drop. She denies back, knees going up or down steps. Movement exacerbates her pain. Prior similar symptoms: Yes Recent Illness/Hospitalization: No [facility] Medical History Disc degeneration Sleep apnea Home Medications tizanidine 4 mg tablet 4 mg PO BID PRN PRN Muscle Spasm 01/21/20 [History Last Taken Unknown] hydroxyzine pamoate 25 mg capsule 25 mg PO TID 04/02/21 [History Last Taken Unknown] omeprazole 20 mg capsule,delayed release 20 mg PO DAILY 04/02/21 [History Last Taken Unknown] sertraline 100 mg tablet 100 mg PO DAILY 04/02/21 [History Last Taken Unknown] varenicline 1 mg tablet (Chantix) 1 mg PO BID 04/02/21 [History Last Taken Unknown] furosemide 40 mg tablet (Lasix) 40 mg PO DAILY #7 tabs 05/03/21 [Rx Last Taken Unknown] doxycycline monohydrate 100 mg capsule 100 mg PO BID #20 CAPSULES 08/25/23 [Rx Last Taken Unknown] prednisone 20 mg tablet 20 mg PO BID #10 tabs 08/25/23 [Rx Last Taken Unknown] albuterol sulfate 90 mcg/actuation aerosol inhaler (Ventolin HFA) 2 puff inhalation Q4H PRN PRN Wheezing ##1 08/28/23 [Rx Last Taken Unknown] hydrocodone-acetaminophen 5-325mg 5mg-325mg 1 tab PO Q6H PRN PRN Pain 3 days #10 TABLETS 10/19/23 [Rx Last Taken Unknown] naproxen 500 mg tablet 500 mg PO BID #14 tabs 10/19/23 [Rx Last Taken Unknown] Allergy/AdvReac Type Severity Reaction Status Date / Time cefaclor [From Ceclor] Allergy Hives Verified 10/19/23 13:16 cephalexin monohydrate Allergy Hives Verified 10/19/23 13:16 [From Keflex] Penicillins [PCN] Allergy Hives Verified 10/19/23 13:16 Social History household members: spouse Smoking Status: Current every day smoker tobacco type: cigarettes substance use type: does not use ROS ROS ED Constitutional Constitutional ED: Denies chills, fever(s) or subjective Cardiovascular Cardiovascular: Denies chest pain Respiratory/Chest Respiratory/Chest: Denies dyspnea or dyspnea on exertion Gastrointestinal Gastrointestinal: Denies abdominal pain, constipation, diarrhea, nausea or vomiting Genitourinary Genitourinary ED: Denies dysuria, hematuria or urinary frequency Musculoskeletal Musculoskeletal: Reports back pain; Denies arthralgias or myalgias Integumentary Denies rash Neurologic Neurologic: Denies paresthesias or weakness Endocrine Endocrinology: Denies cold intolerance or heat intolerance Hematologic/Lymphatic Hematologic/Lymphatic: Denies easy bleeding or easy bruising EXAM Physical Exam Const Vital Signs: 10/19/23 13:17 Temperature 96.5 F L Temperature Source Temporal Pulse Rate 107 H Respiratory Rate 18 Blood Pressure 127/70 H Blood Pressure Mean 89 Pulse Ox 100 Oxygen Delivery Method Room Air Positive well nourished, well developed and obese General Appearance ED: well developed; Negative for NAD or pallor Nutritional Appearance: obese HEENT Reports moist mucous membranes HEENT Narrative: Head is atraumatic and normocephalic. Ears are normal. Eyes PERRL and EOMs intact bilaterally General Eye ED: Negative for pale conjunctiva or scleral icterus Neck supple and no JVD Resp normal respiratory effort and clear to auscultation bilaterally Cardio regular rate, regular rhythm, S1 normal heart sound, S2 normal heart sound and no murmurs GI normal to inspection, nondistended, normoactive bowel sounds, soft to palpation, non-tender and non-distended Back/Spine normal to inspection; Negative for no thoracic nor lumbar tenderness Thoracic Spine / Upper Back: paraspinal muscle tenderness Lumbar Spine / Lower Back: ROM limited and straight leg raise negative bilaterally Extremity normal to inspection and no clubbing, cyanosis or edema Extremity Narrative: DP and PT pulse are palpable. Neuro oriented x3 and no sensory deficits noted Neuro Narrative: EHLs intact bilaterally. Normal sensation over L3-S1 dermatome. Patellar and ankle reflex are 1+ and symmetric. There is no clonus or Babinski sign noted. Sensorium / Orientation: alert Motor Exam: strength 5/5 throughout Deep Tendon Reflexes: Rt Patellar (L4): 1+, Lt Patellar (L4): 1+, Rt Ankle (S1): 1+ and Lt Ankle (S1): 1+ Deep Tendon Reflexes Back: Rt Patellar (L4): 1+, Lt Patellar (L4): 1+, Rt Ankle (S1): 1+ and Lt Ankle (S1): 1+ Plantar Reflex: Downgoing: bilateral Psych Mood & Affect: depressed Skin no rashes or lesions noted and no wounds General Skin Exam: Negative for jaundice or pallor MDM MDM MDM Narrative Medical decision making narrative: Patient resents with exacerbation of chronic back pain due to degenerative disc disease. There is no concern for epidural abscess, spontaneous epidural hematoma or cauda equina syndrome. Patient's exam is consistent with muscular pain. She was treated with NSAIDs and she has no contraindication open analgesia. History & Record Review Additional record(s) reviewed:: Prior inpatient record (None available), Prior ED visit (For microcytic anemia, subcutaneous abscess,) and No prior records (Patient has anemia.) Treatment and Re-Evaluation Narrative: Patient was medicated with p.o. Naprosyn and IM morphine. She was discharged home with prescription for open analgesia and NSAIDs that she has no contraindication. Discharge Plan Triage Chief Complaint: Back ED Provider: Mikey Valle Dx/Rx/DC Orders Clinical Impression: Acute exacerbation of chronic low back pain, DDD (degenerative disc disease), lumbar Instructions: ED Back Care Tips Prescriptions: New hydrocodone-acetaminophen [hydrocodone-acetaminophen] 5-325 mg tablet 1 tab PO Q6H PRN PRN (Reason: Pain) 3 Days Qty: 10 0RF naproxen 500 mg tablet 500 mg PO BID Qty: 14 0RF No Action tizanidine 4 MG tablet 4 mg PO BID PRN PRN (Reason: Muscle Spasm) sertraline 100 mg Tablet 100 mg PO DAILY omeprazole 20 mg Capsule,Delayed Release(Dr/Ec) 20 mg PO DAILY hydroxyzine pamoate 25 mg Capsule 25 mg PO TID Chantix 1 mg Tablet 1 mg PO BID furosemide [Lasix] 40 mg tablet 40 mg PO DAILY Qty: 7 0RF doxycycline monohydrate 100 mg capsule 100 mg PO BID Qty: 20 0RF prednisone 20 mg tablet 20 mg PO BID Qty: 10 0RF albuterol sulfate [Ventolin HFA] 90 mcg/actuation HFA aerosol inhaler 2 puff inhalation Q4H PRN PRN (Reason: Wheezing) Qty: 1 0RF Primary Care Provider: Angela Whitman Referrals: Angela Whitman, [Primary Care Provider] - As Needed Activity Restrictions/Additional Instructions: Keep scheduled appoint with pain management for Thursday, October 26. Disposition Disposition: Home, Self Care
[2023-10-19] MEDS: morphine 8 MG/ML Syringe IM (13:50)
[2023-10-19] MEDS: Naproxen 500 MG Tablet PO (13:51)
== END 2023-10-19 14:40 | disposition home or self-care (01) ==
PROVIDERS: Emergency Provider Emergency Medicine; Referring Provider Emergency Medicine; Visit Provider Emergency Medicine
DX: M51.36 Other intervertebral disc degeneration, lumbar region (principal); G89.29 Other chronic pain; F17.210 Nicotine dependence, cigarettes, uncomplicated; G47.30 Sleep apnea, unspecified
CPT/HCPCS: 96372; 99282

== ENCOUNTER 2023-10-25 16:33 | Emergency (ER) | payer MEDICAID, SELFPAY ==
[2023-10-25 16:34] VITALS: BP 129/65; PULSE 113; RESP 20; TEMP 36.8; O2SAT 97
--- NOTE | 2023-10-25 19:21 | EDS_ITS ---
HPI <GUERA Padron - Last Filed: 10/25/23 19:26> History of Present Illness Chief Complaint: Cold Sx Narrative Narrative: Patient presenting with flu-like symptoms that started this morning. She reports that she has had body aches, chills, sneezing, runny nose, and a cough. She denies a PMH of any chronic health conditions. She denies any fever, chest pain, shortness of breath, abdominal pain, nausea, and vomiting. PFSH <GUERA Padron - Last Filed: 10/25/23 19:26> [facility], [facility] Medical History (Updated 10/25/23 @ 19:29 by Isabell Ley) COVID Disc degeneration Sleep apnea Home Medications tizanidine 4 mg tablet 4 mg PO BID PRN PRN Muscle Spasm 01/21/20 [History Last Taken Unknown] hydroxyzine pamoate 25 mg capsule 25 mg PO TID 04/02/21 [History Last Taken Unknown] omeprazole 20 mg capsule,delayed release 20 mg PO DAILY 04/02/21 [History Last Taken Unknown] sertraline 100 mg tablet 100 mg PO DAILY 04/02/21 [History Last Taken Unknown] varenicline 1 mg tablet (Chantix) 1 mg PO BID 04/02/21 [History Last Taken Unknown] furosemide 40 mg tablet (Lasix) 40 mg PO DAILY #7 tabs 05/03/21 [Rx Last Taken Unknown] doxycycline monohydrate 100 mg capsule 100 mg PO BID #20 CAPSULES 08/25/23 [Rx Last Taken Unknown] prednisone 20 mg tablet 20 mg PO BID #10 tabs 08/25/23 [Rx Last Taken Unknown] albuterol sulfate 90 mcg/actuation aerosol inhaler (Ventolin HFA) 2 puff inhalation Q4H PRN PRN Wheezing ##1 08/28/23 [Rx Last Taken Unknown] hydrocodone-acetaminophen 5-325mg 5mg-325mg 1 tab PO Q6H PRN PRN Pain 3 days #10 TABLETS 10/19/23 [Rx Last Taken Unknown] naproxen 500 mg tablet 500 mg PO BID #14 tabs 10/19/23 [Rx Last Taken Unknown] Allergy/AdvReac Type Severity Reaction Status Date / Time cefaclor [From [facility]] Allergy Hives Verified 10/25/23 16:34 cephalexin monohydrate Allergy Hives Verified 10/25/23 16:34 [From Keflex] Penicillins [PCN] Allergy Hives Verified 10/25/23 16:34 Social History household members: spouse Smoking Status: Current every day smoker tobacco type: cigarettes substance use type: does not use ROS <GUERA Padron - Last Filed: 10/25/23 19:26> ROS ED Constitutional Constitutional ED: Reports chills; Denies fever(s) ENT ENT ED: Reports rhinorrhea; Denies sore throat Cardiovascular Cardiovascular: Denies chest pain Respiratory/Chest Respiratory/Chest: Reports cough; Denies dyspnea or dyspnea on exertion Gastrointestinal Gastrointestinal: Denies abdominal pain, nausea or vomiting Genitourinary Genitourinary ED: Denies dysuria, hematuria or urinary urgency Musculoskeletal Musculoskeletal: Reports myalgias Integumentary Denies rash Neurologic Neurologic: Denies weakness EXAM <GUERA Padron - Last Filed: 10/25/23 19:26> Physical Exam Const Vital Signs: 10/25/23 16:34 10/25/23 19:30 Temperature 98.2 F Temperature Source Temporal Pulse Rate 113 H Respiratory Rate 20 H Respiratory Effort Normal Non-Labored Blood Pressure 129/65 H Blood Pressure Mean 86 Pulse Ox 97 Oxygen Delivery Method Room Air Positive well nourished, well developed and no apparent distress General Appearance ED: well developed HEENT Reports normocephalic and head/scalp atraumatic HEENT Narrative: Posterior pharynx clear, no tonsillar exudate, uvula midline, no trismus, no drooling Mouth ED: Yes moist mucous membranes normal Eyes PERRL and EOMs intact bilaterally Neck full ROM and supple Chest Wall inspection of chest normal Resp normal respiratory effort and clear to auscultation bilaterally Cardio regular rate and regular rhythm GI soft to palpation, non-tender, non-distended and no masses Back/Spine normal ROM and normal to inspection Extremity normal to inspection and full ROM Neuro oriented x3, CN's II-XII intact bilaterally, moves all extremities, no focal motor deficits and no sensory deficits noted Sensorium / Orientation: awake and alert Psych mental status grossly normal and thought process normal Skin no rashes or lesions noted and no wounds <Dr. Kristofer Kaur DO - Last Filed: 10/25/23 22:47> Physical Exam Const Vital Signs: 10/25/23 16:34 10/25/23 19:30 Temperature 98.2 F Temperature Source Temporal Pulse Rate 113 H Respiratory Rate 20 H Respiratory Effort Normal Non-Labored Blood Pressure 129/65 H Blood Pressure Mean 86 Pulse Ox 97 Oxygen Delivery Method Room Air [facility] <GUERA Padron - Last Filed: 10/25/23 19:26> [facility] Narrative Medical decision making narrative: Patient presenting with flulike symptoms that started this morning. She is nontoxic-appearing and in no acute distress. She is afebrile, oxygen saturation is 97% on room air. COVID and flu swabs obtained, she is positive for COVID. I have encouraged supportive care measures. I did offer Tylenol/ibuprofen here but she declines. She has been given return instructions and is to follow CDC guidelines for isolation precautions. She will be given a work note. She was discharged home in stable condition and is comfortable with plan. <Dr. Kristofer Kaur DO - Last Filed: 10/25/23 22:47> [facility] Treatment and Re-Evaluation :: I have personally performed a face to face assessment of the patient and have reviewed the YADIRA Note. I performed a substantive portion of the visit including all aspects of the following. My garcia findings include: History: Patient presents with cough and congestion that began today. Patient states that began this morning. Patient describes her pain as aching. Patient states she feels achy all over. Patient admits to some nasal congestion and general myalgias. Patient admits to a cough with some clear sputum. Patient admits to some subjective chills but denies any fevers. Patient denies any chest pain or shortness of breath. Patient denies any nausea, vomiting, or diarrhea. Exam: Vital signs are stable except for mild tachycardia of 113. Patient is afebrile. Patient is in no acute distress. Oral mucosa is pink and moist. Neck is supple. Trachea is midline. There is no JVD. Heart was regular tachycardic. Lungs are clear and equal bilateral. There is good respiratory effort noted. Abdomen is soft. Bowel sounds are normal. There is no tenderness. Cranial nerves II through XII are intact. There are no focal motor or sensory deficits noted. Medical Decision Making: Differential diagnosis includes viral upper respiratory infection, COVID-19 infection, and influenza infection. COVID-19 rapid antigen will be obtained to assess for COVID-19 infection. Influenza A and influenza B antigens will be obtained to assess for influenza infection. COVID-19 rapid antigen was reviewed and was positive. Influenza A and influenza B antigens were reviewed and were negative. Patient was advised of her findi ngs. Patient was instructed to drink plenty of fluids. Patient was instructed to take Tylenol or ibuprofen as needed for any aches or fevers. Patient was instructed to follow-up with her primary care physician in 5 to 7 days. Patient understood and was agreeable with the plan. All questions were answered. Discharge Plan Triage Chief Complaint: Cold Sx ED Midlevel Provider: Taniya Hanks ED Provider: Kristofer Kaur Dx/Rx/DC Orders Clinical Impression: COVID-19 Instructions: Coronavirus Disease 2019 (COVID-19): Caring for Yourself or Others Prescriptions: No Action tizanidine 4 MG tablet 4 mg PO BID PRN PRN (Reason: Muscle Spasm) sertraline 100 mg Tablet 100 mg PO DAILY omeprazole 20 mg Capsule,Delayed Release(Dr/Ec) 20 mg PO DAILY hydroxyzine pamoate 25 mg Capsule 25 mg PO TID Chantix 1 mg Tablet 1 mg PO BID furosemide [Lasix] 40 mg tablet 40 mg PO DAILY Qty: 7 0RF doxycycline monohydrate 100 mg capsule 100 mg PO BID Qty: 20 0RF prednisone 20 mg tablet 20 mg PO BID Qty: 10 0RF albuterol sulfate [Ventolin HFA] 90 mcg/actuation HFA aerosol inhaler 2 puff inhalation Q4H PRN PRN (Reason: Wheezing) Qty: 1 0RF hydrocodone-acetaminophen [hydrocodone-acetaminophen] 5-325 mg tablet 1 tab PO Q6H PRN PRN (Reason: Pain) 3 Days Qty: 10 0RF naproxen 500 mg tablet 500 mg PO BID Qty: 14 0RF Stand Alone Forms: ED Work / School Excuse Primary Care Provider: Angela Whitman Referrals: Angela Whitman, DO [Primary Care Provider] - As Needed Activity Restrictions/Additional Instructions: Return for any worsening of your symptoms. You can take [id number] cold and flu medications for your symptoms as needed. You can alternate Tylenol and ibuprofen for your fevers as needed if you develop one. Be sure not to take additional Tylenol if your cold and flu medications have acetaminophen (Tylenol) in it. Stay well-hydrated. Disposition Disposition: Home, Self Care Discharge Date/Time: 10/25/23 19:30
== END 2023-10-25 19:30 | disposition home or self-care (01) ==
LOC: ED 19:22
PROVIDERS: Emergency Provider Emergency Medicine; Visit Provider Emergency Medicine
DX: U07.1 COVID-19 (principal); F17.210 Nicotine dependence, cigarettes, uncomplicated; G47.30 Sleep apnea, unspecified; Z86.16 Personal history of COVID-19
CPT/HCPCS: 87428; 99282

== ENCOUNTER → 2023-11-20 | Outpatient (CLI) | payer MEDICAID, SELFPAY ==
--- NOTE | 2023-11-20 13:11 | RAD_ITS ---
EXAM: XR LUMBOSACRAL SPINE, 4 OR 5 VIEWS CLINICAL INDICATION: BACK PAIN TECHNIQUE: Frontal, lateral and bilateral oblique views of the lumbar spine. COMPARISON: No relevant prior studies available. FINDINGS: VERTEBRAE: Normal lumbar lordosis. No acute fracture or subluxation. Prominent facet arthropathy at L4-5 L5-S1 resulting in mild anterior listhesis of L5 on S1. DISC SPACES: No acute findings. Disc spaces are maintained. GASTROINTESTINAL TRACT: Normal bowel gas pattern. RAD/L/S Spine Min 4 Views IMPRESSION: L4-5 and L5-S1 facet arthropathy. Electronically Signed: Skip Paulino MD at 16:27 EST ,
--- OUTSIDE RECORDS SUMMARY | 2023-11-20 13:53 | XMS RPT_ITS | CCD ---
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 Name Role Phone Angela Whitman DO Primary Care Provider DR ANGELA WHITMAN DO Primary Care Physician [phone] ANGELA Yee DO Primary Care Unavailable ANGELA WHITMAN Primary Care Unavailable ANGELA WHITMAN Primary Care Unavailable Allergies Allergy Classification Reported Allergen(s) Allergy Type Date of Onset Reaction(s) Facility (3 sources) Ampicillin; Translations: [AMPICILLIN (BULK)] Drug Allergy 08-17-2015 [facility] (4 sources) Cefaclor; Translations: [cefaclor] Drug Allergy 08-17-2015 [facility] (qualifier value) [facility] (4 sources) Cephalexin; Translations: [cephalexin] Drug Allergy 08-17-2015 [facility] (3 sources) Penicillins; Translations: [PENICILLINS] Drug Allergy 08-17-2015 [facility] (1 source) Penicillins; Translations: [penicillins] Drug allergy Unknown [facility] Medications Current Medications Medication Drug Class(es) Dates Sig (Normalized) Sig (Original) albuterol MDI (90 mcg/inh) CFC free inhalation aerosol (1 source) Start: 08-26-2023 take 1 puff(s) by inhalation once as needed for wheezing albuterol MDI (90 mcg/inh) CFC free inhalation aerosol 1 puff(s), Inhalation, Once, PRN as needed for wheezing, # 18 gram(s), 0 Refill(s) Start Date: 08/26/23 Status: Ordered doxycycline hyclate 100 mg oral tablet (1 source) Tetracycline-clas s Drug Start: 08-22-2023 End: 08-29-2023 take 1 tablet by mouth twice daily doxycycline (VIBRA-TABS) 100 mg tablet Take 1 tablet by mouth two times a day for 7 days. 14 tablet 0 08/22/2023 08/29/2023 Active Completed/Discontinued Medications Medication Drug Class(es) Dates Sig (Normalized) Sig (Original) fluticasone propionate 0.05 mg/actuat metered dose nasal spray (2 sources) Corticosteroid Start: 08-08-2018 take 2 spray(s) by mouth once daily fluticasone (FLONASE) 50 mcg/actuation nasal spray Use 2 Sprays in each nostril once daily. Rinse mouth after use. 1 Bottle 11 08/08/2018 Active Problems Problem Classification Problem Date Documented Da te Episodic/Chronic Anxiety disorders (1 source) Anxiety 12-13-2020 Chronic Coma; stupor; and brain damage (1 source) Daytime somnolence 05-17-2021 Episodic Deficiency and other anemia (1 source) Anemia 12-26-2021 Episodic Esophageal disorders (1 source) Gastroesophageal reflux disease 07-01-2019 Chronic Other gastrointestinal disorders (1 source) Irritable bowel syndrome 06-30-2019 Chronic Other upper respiratory infections (1 source) Chronic sinusitis, unspecified; Translations: [Unspecified sinusitis (chronic)] 08-22-2023 Chronic Residual codes; unclassified (1 source) Obstructive sleep apnea syndrome 06-30-2019 Chronic Residual codes; unclassified (1 source) Chronic back pain 07-13-2020 Episodic Spondylosis; intervertebral disc disorders; other back problems (1 source) Sciatica 06-30-2019 Episodic Syncope (1 source) Syncope 05-17-2021 Episodic Results Test Name Value Interpretation Reference Range Facil ity Vital Signs Date Time Vital Sign Value Performing Clinician Faci lity 08-22-2023 14:55-0400 Body temperature 98.91 [degF] Shannan Walker APRN.CNP Work Phone: [facility] 08-22-2023 14:55-0400 Body weight 108.86 kg Shannan Walker APRN.CNP Work Phone: [facility] 08-22-2023 14:55-0400 Diastolic blood pressure 70 mm[Hg] Shannan Walker APRN.BRAKE LINING CURER Work Phone: [facility] 08-22-2023 14:55-0400 Heart rate 121 /min Shannan Walker APRN.BRAKE LINING CURER Work Phone: [facility] 08-22-2023 14:55-0400 Respiratory rate 20 /min Shannan Walker APRN.BRAKE LINING CURER Work Phone: [facility] 08-22-2023 14:55-0400 SaO2% (BldA) [Mass fraction] 98 % Shannan Walker APRN.BRAKE LINING CURER Work Phone: [facility] 08-22-2023 14:55-0400 Systolic blood pressure 104 mm[Hg] Shannan Walker APRN.BRAKE LINING CURER Work Phone: [facility] Encounters Encounter Date Encounter Type Care Provider Facility Start: 11-04-2023 Telephone encounter Neema Omayra SIMS.BRAKE LINING CURER Work Phone: [facility] Procedures Date Procedure Procedure Detail Performing Clinician Start: 03-03-2019 Mammography BERTO CONTRERAS MANAGER OF REGULATORY AFFAIRS-[employer] LINING CURER Plan of Treatment Date Care Activity Detail Author Start: 07-13-2030 Urine microalbumin profile DTa P,Tdap,Td Vaccine (2 - Td or Tdap) [facility] Start: 07-10-2023 Covid-19 Vaccine ( season) Covid-19 Vaccine () [facility] Start: 07-10-2023 Influenza vaccination Influenza Vacc ine (#1) [facility] Start: 11-09-2022 Depression Assessment Depression Ass essment [facility] Start: 2022 Cologuard (FIT-DNA) Cologuard (FIT-D NA) [facility] Start: 2022 Colonoscopy Colonoscopy [facility] Start: 2022 Colorectal Cancer Screening Colorectal Cancer Screening [facility] Start: [address] Colonography [facility] Start: 2022 Diabetes Screening Diabetes Screenin g [facility] Start: 2022 Fecal Occult Blood Fecal Occult Bloo d [facility] Start: 2022 Lipid 1996 panel - S bev or Plasma Lipid Screening [facility] Start: 2022 Lipid panel Lipid Screening [facility] Start: 2022 Screening for malign ant neoplasm of colon [facility] Start: 2022 Sigmoidoscopy Sigmoidoscopy [facility] Start: 2017 Mammography Mammogram Screening [facility] Start: 2017 Screening for malign ant neoplasm of breast Mammogram Screening [facility] Start: 2007 HPV Testing HPV Testing [facility] Start: 2007 Screening for malign ant neoplasm of cervix HPV Testing [facility] Start: 1998 Pap Testing Pap Testing [facility] Start: 1998 Screening for malign ant neoplasm of cervix Pap Testing [facility] Start: 1996 Urine microalbumin profile DTa P,Tdap,Td Vaccine (1 - Tdap) [facility] Start: 1995 Hepatitis C Screening Hepatitis C [facility] Start: 1995 Hepatitis C screening Hepatitis C [facility] Start: 1995 HIV Screening HIV Screening [facility] Start: 1995 HIV screening HIV Screening [facility] Start: 1983 Pneumococcal vaccination [facility] Start: 1977 Hepatitis B Vaccine (1 of 3 - 3-dose series) Hepatitis B Vaccine (1 of 3 - 3-dose series) [facility] Immunizations Immunization Date Immunization Notes [facility]2020 tetanus toxoid, redu china diphtheria toxoid, and acellular pertussis vaccine, adsorbed; Translations: [Boostrix (Tdap)] BERTO ALSTON MANAGER OF REGULATORY AFFAIRS-BRAKE LINING CURER [facility] Payers Date Payer Category Payer Medicaid [id number] 2022 Unknown [id number] 1975 Unknown [id number] Social History Date Type Detail Facility Start: 08-22-2023 Tobacco smoking stat us UTIS Smokes tobacco daily [facility] History of tobacco use Cigarette Smoker C [facility] Start: 10-17-2020 End: 08-22-2023 Cigarettes smoked current (pack per day) - Reported 1 [facility] Start: 08-22-2023 Tobacco use and exposure Smoke less tobacco non-user [facility] Start: 08-22-2023 End: 11-03-2023 Alcohol intake Not Asked [facility] Start: 10-17-2020 End: 08-22-2023 Tobacco use panel [facility] National Score (1-10 0), lower number is lower risk Not on file [facility] Start: 1975 Sex Assigned At Not on file C [facility] Start: 06-30-2019 Tobacco smoking status Heavy t obacco smoker (finding) [facility] Note 11-04-2023 Telephone Encounter - Bozena Lagos - 11/04/2023 7:28 AM ESTTelephone Encounter - Neema Cutler APRN.CNP - 11/04/2023 6:50 AM EST Note Date & Type Note Facility 11-04-2023 Miscellaneous Notes Formattin g of this note might be different from the original. Patient given results and verbalized understanding of instructions given. Bozena Lagos Please notify of negative covid test. Continue comfort measures for symptoms as you would for a cold. Any worsening symptoms follow up with PCP or ER. Neema Cutler APRN.CNP documented in this encounter [facility] Progress note 11-03-2023 Note Date & Type Note Facility 11-03-2023 Note HNO ID: [id number] Author: Puja Suh APRN.CNP Service: ? Author Type: Nurse Practitioner Type: Progress Notes Filed: 11/03/2023 1:03 PM Note Text: Subjective Cough Pertinent negatives include no chest pain, no chills, no ear pain, no sore throat and no shortness of breath. Elizabeth Luis is a 48 year old female who presents for a COVID test result. States she needs a negative test to return to work. She states she tested positive 10 days ago and was negative at home [place] and negative yesterday. She still has a slight cough and some sneezing and runny nose. She denies fever or shortness of breath. Review of Systems Constitutional: Negative for chills and fever. HENT: Positive for congestion. Negative for ear pain and sore throat. Respiratory: Positive for cough. Negative for shortness of breath. Cardiovascular: Negative for chest pain. 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 fluticasone (FLONASE) 50 mcg/actuation nasal spray Use 2 Sprays in each nostril once daily. Rinse mouth after use. (Patient not taking: Reported on 08/22/2023) No family history on file. Social History Tobacco Use Smoking status: Every Day Packs/day: 1 Types: Cigarettes Smokeless tobacco: Never Objective Physical Exam Vitals and nursing note reviewed. Constitutional: General: She is not in acute distress. Appearance: Normal appearance. She is not ill-appearing. HENT: Mouth/Throat: Pharynx: No posterior oropharyngeal erythema. Cardiovascular: Rate and Rhythm: Normal rate and regular rhythm. Heart sounds: Normal heart sounds. Pulmonary: Effort: Pulmonary effort is normal. No respiratory distress. Breath sounds: Normal breath sounds. No wheezing or rales. Skin: General: Skin is warm and dry. Findings: No erythema or rash. Neurological: Mental Status: She is alert. ASSESSMENT/PLAN: 1. History of COVID-19 - ICD9: V12.09, ICD10: Z86.16 - patient advised that a negative test should not be required to work according to CDC guidelines. Puja Suh APRN.REGULO [facility] Progress note 08-22-2023 Note Date & Type Note Facility 08-22-2023 Note HNO ID: [id number] Author: Shannan Walker APRN.REGULO Service: ? Author Type: Nurse Practitioner Type: Progress Notes Filed: 08/22/2023 3:30 PM Note Text: Subjective Patient came in with complaints of ear pain cough congestion sinus pressure patient says she gets TMJ sometimes. Patient says usually steroids help. Patient denies any chest tightness pressure or shortness of breath. The history is provided by the patient. No sign language interpreter was used. Cough Review of Systems Constitutional: Negative. Respiratory: Positive for cough. Skin: Negative. Objective Physical Exam Constitutional: Appearance: Normal appearance. HENT: Right Ear: Tympanic membrane, ear canal and external ear normal. Left Ear: Tympanic membrane, ear canal and external ear normal. Cardiovascular: Rate and Rhythm: Normal rate and regular rhythm. Heart sounds: Normal heart sounds. Pulmonary: Effort: Pulmonary effort is normal. Breath sounds: Wheezing present. Neurological: Mental Status: She is alert. 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 fluticasone (FLONASE) 50 mcg/actuation nasal spray Use 2 Sprays in each nostril once daily. Rinse mouth after use. (Patient not taking: Reported on 08/22/2023) omeprazole (PRILOSEC) 40 mg capsule Take 40 mg by mouth once daily. predniSONE (DELTASONE) 20 mg tablet Take 2 tablets by mouth once daily for 5 days. No family history on file. Social History Tobacco Use Smoking status: Every Day Packs/day: 1 Types: Cigarettes Smokeless tobacco: Never ASSESSMENT/PLAN: 1. Rhinosinusitis - ICD9: 473.9, ICD10: J32.9 Patient was prescribed doxycycline and prednisone. Patient denies any issues with either medication. Patient was educated about proper use of medication supportive therapies. Patient will follow up with signs and symptoms seem to be getting worse not better. Patient was okay with this care plan. Shannan Walker APRN.REGULO [facility] History of Present illness Narrative 08-22-2023 Shannan Walker APRN.REGULO - 08/22/2023 3:18 PM EDT Note Date & Type Note Facility 08-22-2023 History of Presen t illness Narrative Subjective Patient came in with complaints of ear pain cough congestion sinus pressure patient says she gets TMJ sometimes. Patient says usually steroids help. Patient denies any chest tightness pressure or shortness of breath. The history is provided by the patient. No sign language interpreter was used. Cough Review of Systems Constitutional: Negative. Respiratory: Positive for cough. Skin: Negative. Objective Physical Exam Constitutional: Appearance: Normal appearance. HENT: Right Ear: Tympanic membrane, ear canal and external ear normal. Left Ear: Tympanic membrane, ear canal and external ear normal. Cardiovascular: Rate and Rhythm: Normal rate and regular rhythm. Heart sounds: Normal heart sounds. Pulmonary: Effort: Pulmonary effort is normal. Breath sounds: Wheezing present. Neurological: Mental Status: She is alert. 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 fluticasone (FLONASE) 50 mcg/actuation nasal spray Use 2 Sprays in each nostril once daily. Rinse mouth after use. (Patient not taking: Reported on 08/22/2023) omeprazole (PRILOSEC) 40 mg capsule Take 40 mg by mouth once daily. predniSONE (DELTASONE) 20 mg tablet Take 2 tablets by mouth once daily for 5 days. No family history on file. Social History Tobacco Use Smoking status: Every Day Packs/day: 1 Types: Cigarettes Smokeless tobacco: Never ASSESSMENT/PLAN: 1. Rhinosinusitis - ICD9: 473.9, ICD10: J32.9 Patient was prescribed doxycycline and prednisone. Patient denies any issues with either medication. Patient was educated about proper use of medication supportive therapies. Patient will follow up with signs and symptoms seem to be getting worse not better. Patient was okay with this care plan. Shannan Walker APRN.BRAKE LINING CURER documented in this encounter [facility] Evaluation + Plan note Laboratory Note Date & Type Note Facility Evaluation + Plan note Future Appointments Appointment Date:08/31/2023 11:00:00 AM Scheduled Provider:ROSAURA GARCIA PA-C Location[facility] Appointment Type: OV Future Scheduled TestsUrinalysis 06/25/23Thyroid Stimulating Hormone 06/25/23Free T4 06/25/23Urine Culture 06/25/23A1C Hemoglobin 06/25/23Complete Blood Count 06/25/23Complete Metabolic Panel 06/25/[address] [facility] Evaluation note Note Date & Type Note Facility documented in this encounter [facility] course Narrative Note Date & Type Note Facility Hospital course Narrative No data available for this section [facility] Hospital Discharge instructions Note Date & Type Note Facility Hospital Discharge instructions No data available for this section [facility] Progress note Note Date & Type Note Facility Progress note No data available for this section [facility] Summary Purpose Family History No Family History Records Found Advance Directives No Advanced Directives Records FoundNo Advanced Directives Records Found Additional Source Comments Source Comments (unrecognize d section and content) In the event this informatio n is protected by the Federal Confidentiality of Alcohol and Drug Abuse Patient Records regulations: The Federal rules restrict any use of the information to criminally investigate or prosecute any alcohol or drug abuse patient.[facility] the event this information is protected by the Federal Confidentiality of Alcohol and Drug Abuse Patient Records regulations: The Federal rules restrict any use of the information to criminally investigate or prosecute any alcohol or drug abuse patient.[facility] Reason for Visit (unrecogniz ed section and content) Reason Comments Results Care Teams (unrecognized sec tion and content) Precision Thread Grinder Operator Relationship Specialty Start Date End Date Angela Whitman DO [address] [place] [id number] PCP - General Family Medicine 11/25/18 INFORMATION SOURCE (unrecogn ized section and content) DATE CREATED AUTHOR AUTHOR'S SUKUMAR OBRIEN 11/05/2023 [facility] FOR RECORDS PERTAINING TO PATIENTS WHO ARE OR HAVE BEEN ENROLLED IN A CHEMICAL DEPENDENCY/SUBSTANCEABUSE PROGRAM, SOME INFORMATION MAY BE OMITTED. This clinical summary was aggregated from multiple sources. Caution should be exercised in using it in the provision of clinical care. This summary normalizes information from multiple sources, and as a consequence, information in this document may materially change the coding, format and clinical context of patient data. In addition, data may be omitted in some cases. CLINICAL DECISIONS SHOULD BE BASED ON THE PRIMARY CLINICAL RECORDS. [employer] provides no warranty or guarantee of the accuracy or completeness of information in this document.
== END | disposition home or self-care (01) ==
LOC: RAD 13:04
PROVIDERS: Referring Provider Clinical Nurse Specialist Adult Health; Visit Provider Clinical Nurse Specialist Adult Health
DX: M54.50 Low back pain, unspecified (principal)
CPT/HCPCS: 72110

== ENCOUNTER 2023-12-02 11:52 | Emergency (ER) | payer MEDICAID, SELFPAY ==
[2023-12-02 11:53] VITALS: BP 129/80; PULSE 105; RESP 16; TEMP 36.6; O2SAT 99; BMI 38.2
[2023-12-02 14:38] LABS: Absolute Lymphocyte Count 0.63 X10^3/uL (0.83-4.51); Basophil# 0.02 X10^3/uL; Basophil% 0.2 % (0-1); Hematocrit 42.6 % (37-47); Hemoglobin 13.2 g/dL (12.0-15.0); Lymphocyte # 0.63 X10^3/ul (0.83-4.51); Lymphocyte % 4.8 % (19-41); Mean Corpuscular Hgb 24.1 pg (27.0-32.0); Mean Corpuscular Volume 77.7 fL (81-99); Mean Platelet Vol. 10.1 fl (6.2-12.0); Monocyte% 3.8 % (0-10); NRBC Flagged by Analyzer 0 % (0-5); Neutrophil # 11.96 X10^3/uL (2.7-7.7); Neutrophil % 90.5 % (47-70); Platelet Count 297 K/mm3 (150-450); RBC Distribution Width CV 16.9 % (11.6-14.6); RBC Distribution Width SD 47.8 fl (35.1-43.9); Red Blood Count 5.48 M/mm3 (4.2-5.4); White Blood Count 13.2 K/mm3 (4.4-11.0)
--- NOTE | 2023-12-02 15:14 | EDS_ITS ---
HPI HPI - GI History of Present Illness Chief Complaint: Diarrhea Informant: patient Abdominal Pain/Flank Pain Onset: Days Context: Gradual Onset Timing: Intermittent Quality: Cramping Location: Diffuse Current Severity: Mild Maximum Severity: Mild Worsened by: Nothing Relieved by: Nothing Nausea/Vomiting/Emesis GI Symptom: Positive for Nausea; Negative for Vomiting Onset: Today Severity: Mild Diarrhea/Melena/Hematochezia GI Symptom: Positive for Diarrhea; Negative for Melena or Hematochezia Onset: Days Stool Quality: Positive for Loose Severity: Moderate Episodes: 3 (3-5 episodes per day. No melena.) Associated Symptoms Associated Symptoms: Negative for Dysuria, Frequency, Hematuria or Urgency Narrative Narrative: 48-year-old female no seen past medical history. Prior cholecystectomy, prior ectopic surgery and partial bowel surgery. Since her last 3 days today being the third she has had 3-5 episodes of diarrhea. Was controlled by Imodium so she ran out of Imodium. Prior to her symptoms are significant other had similar symptoms but has resolved about 24 hours. Denies any dysuria. No fever. She is able to hold down p.o. fluids. She does have some diffuse abdominal crampy discomfort. Prior similar symptoms: Yes Recent Illness/Hospitalization: No PFSH PFS Medical History COVID Disc degeneration Sleep apnea Home Medications tizanidine 4 mg tablet 4 mg PO BID PRN PRN Muscle Spasm 01/21/20 [History Last Taken Unknown] hydroxyzine pamoate 25 mg capsule 25 mg PO TID 04/02/21 [History Last Taken Unknown] omeprazole 20 mg capsule,delayed release 20 mg PO DAILY 04/02/21 [History Last Taken Unknown] sertraline 100 mg tablet 100 mg PO DAILY 04/02/21 [History Last Taken Unknown] varenicline 1 mg tablet (Chantix) 1 mg PO BID 04/02/21 [History Last Taken Unknown] furosemide 40 mg tablet (Lasix) 40 mg PO DAILY #7 tabs 05/03/21 [Rx Last Taken Unknown] doxycycline monohydrate 100 mg capsule 100 mg PO BID #20 CAPSULES 08/25/23 [Rx Last Taken Unknown] prednisone 20 mg tablet 20 mg PO BID #10 tabs 08/25/23 [Rx Last Taken Unknown] albuterol sulfate 90 mcg/actuation aerosol inhaler (Ventolin HFA) 2 puff inhalation Q4H PRN PRN Wheezing ##1 08/28/23 [Rx Last Taken Unknown] hydrocodone-acetaminophen 5-325mg 5mg-325mg 1 tab PO Q6H PRN PRN Pain 3 days #10 TABLETS 10/19/23 [Rx Last Taken Unknown] naproxen 500 mg tablet 500 mg PO BID #14 tabs 10/19/23 [Rx Last Taken Unknown] Allergy/AdvReac Type Severity Reaction Status Date / Time cefaclor [From Ceclor] Allergy Hives Verified 12/02/23 11:54 cephalexin monohydrate Allergy Hives Verified 12/02/23 11:54 [From Keflex] Penicillins [PCN] Allergy Hives Verified 12/02/23 11:54 Social History household members: spouse Smoking Status: Current every day smoker tobacco type: cigarettes substance use type: does not use ROS ROS ED ROS Narrative Diarrhea. Abdominal cramping. Review of Systems ROS Unobtainable: Denies due to encephalopathy Constitutional Constitutional ED: Denies chills or fever(s) ENT ENT ED: Denies ear pain or rhinorrhea Cardiovascular Cardiovascular: Denies chest pain Respiratory/Chest Respiratory/Chest: Denies cough or dyspnea Gastrointestinal Gastrointestinal: Reports abdominal pain, diarrhea and nausea; Denies constipation, melena or vomiting Genitourinary Genitourinary ED: Denies dysuria or hematuria Musculoskeletal Musculoskeletal: Denies arthralgias Integumentary Denies abscess Neurologic Neurologic: Denies headache(s) Psychiatric Psychiatric: Denies anxiety or depression Endocrine Endocrinology: Denies polydipsia or polyphagia Hematologic/Lymphatic Hematologic/Lymphatic: Denies easy bleeding or easy bruising Allergic/Immunologic Allergic/Immunologic ED: Denies mouth swelling EXAM Physical Exam Narrative Exam Narrative: Well-appearing 48-year-old female. Vital signs are stable afebrile. Also 99% on room air no hypoxia. HEENT exam dry mucous members. Neck nontender. Lungs clear to auscultation bilaterally. Heart regular rhythm rate about 105 no murmur. Abdomen soft nondistended normal bowel sounds no peritoneal signs. Weight loss, diffusely minimally tender. No localizing tenderness. No hernia. No mass. No obstruction. Moving all 4 extremities. Nontender no edema. Neurologically she is awake alert no focal motor deficits. Const Vital Signs: 12/02/23 11:53 12/02/23 15:29 12/02/23 17:56 Temperature 97.9 F Temperature Source Temporal Pulse Rate 105 H 83 78 Respiratory Rate 16 16 16 Blood Pressure 129/80 H 119/81 H 137/74 H Blood Pressure Mean 96 93 95 Pulse Ox 99 99 97 Oxygen Delivery Method Room Air Room Air Room Air Positive well nourished and well developed; Negative for cachectic, contractures or unkempt General Appearance ED: well developed; Negative for unkempt, cachectic or contractures Nutritional Appearance: Negative for cachectic HEENT Reports dry mucous membranes; Denies moist mucous membranes normocephalic and atraumatic; Negative for trauma or tenderness Mouth ED: Yes dry mucous membranes Mouth: dry mucous membranes Eyes PERRL and EOMs intact bilaterally General Eye ED: Negative for pale conjunctiva or scleral icterus Neck no lymphadenopathy, supple and no JVD General: Negative for tenderness Carotids: Negative for other Lymph Lymphatic: Negative for other Resp normal respiratory effort and clear to auscultation bilaterally Effort and Inspection: Negative for respiratory distress or retractions Auscultation: Negative for rales, rhonchi or wheezes Cardio regular rhythm, S1 normal heart sound, S2 normal heart sound and no murmurs; Negative for regular rate Rate: tachycardic GI non-distended and no masses; Negative for non-tender Inspection: Negative for abdominal distention Auscultation: normoactive bowel sounds Palpation: soft and tender; Negative for guarding, rigid, hepatomegaly, splenomegaly, hernia, mass, pulsatile mass or rebound tenderness present Back/Spine no CVA tenderness General Back: Negative for CVA tenderness Cervical Spine: Negative for cervical spine tenderness Thoracic Spine / Upper Back: Negative for thoracic spinal tenderness Lumbar Spine / Lower Back: Negative for lumbar spinal tenderness Extremity full ROM General Extremety ED: Negative for edema or tenderness General Extremity: Negative for edema Neuro CN's II-XII intact bilaterally and moves all extremities Sensorium / Orientation: alert, oriented to person, oriented to place and oriented to time; Negative for orientation impaired or confused Motor Exam: strength 5/5 throughout Psych mental status grossly normal and thought process normal Appearance: Negative for unkempt Attitude: No agitated Mood & Affect: Negative for depressed, anxious or tearful Skin no wounds General Skin Exam: Negative for jaundice Rashes: no rashes Trauma: Negative for abrasion Nails: Negative for discolored MDM MDM MDM Narrative Medical decision making narrative: 48-year-old female with crampy abdominal discomfort and diarrhea. had recent similar symptoms. Hers improved with Imodium but she ran out of Imodium. Most likely this is viral GI syndrome. She needs hydration to be given IV fluids. Imodium and Bentyl. And reassess. Repeat exam doing well at 7 PM. It is a viral syndrome. Patient was treated with IV fluids. Currently is feeling better. Was given Imodium and Bentyl. We discharged home with Imodium as needed. Follow-up with her doctor if not improving. History & Record Review Discussion w/independent historian: Patient Additional record(s) reviewed:: Prior inpatient record, Prior outpatient record, Prior ED visit and Prior labs Lab Data Attestation: I reviewed the patient's lab results. Lab results narrative: Patient CBC shows a white count of 13.2. H&H 13 and 42. Platelets 297. Chemistries show gap of 4. Normal BUN and creatinine. Glucose 101. Liver en zymes normal. C. difficile negative. Labs: Laboratory Results - last 24 hr 12/02/23 14:20 WBC 13.2 H RBC 5.48 H Hgb 13.2 Hct 42.6 MCV 77.7 L MCH 24.1 L MCHC 31.0 L RDW Std Deviation 47.8 H RDW Coeff of Camron 16.9 H Plt Count 297 MPV 10.1 Immature Gran % (Auto) 0.700 Neut % (Auto) 90.5 H Lymph % (Auto) 4.8 L [place] % (Auto) 3.8 Eos % (Auto) 0.0 Baso % (Auto) 0.2 Absolute Neuts (auto) 12.0 H Absolute Lymphs (auto) 0.63 L Nucleated RBC % 0 Sodium 137 Potassium 4.0 Chloride 108 H Carbon Dioxide 25.0 Anion Gap 4 L BUN 9 Creatinine 0.89 Estim Creat Clear Calc 94.56 Est GFR (MDRD) Af Amer 88 Est GFR (MDRD) Non-Af 73 BUN/Creatinine Ratio 10.1 Glucose 101 Calcium 9.1 Total Bilirubin 0.60 AST 35 ALT 27 Alkaline Phosphatase 87 Total Protein 7.6 Albumin 3.7 Globulin 3.9 Albumin/Globulin Ratio 0.9 Discharge Plan Triage Chief Complaint: Diarrhea ED Provider: Nawaf Ibarra Dx/Rx/DC Orders Clinical Impression: Diarrhea, Viral syndrome Instructions: ED Diarrhea, Viral (Adult) Prescriptions: No Action tizanidine 4 MG tablet 4 mg PO BID PRN PRN (Reason: Muscle Spasm) sertraline 100 mg Tablet 100 mg PO DAILY omeprazole 20 mg Capsule,Delayed Release(Dr/Ec) 20 mg PO DAILY hydroxyzine pamoate 25 mg Capsule 25 mg PO TID Chantix 1 mg Tablet 1 mg PO BID furosemide [Lasix] 40 mg tablet 40 mg PO DAILY Qty: 7 0RF doxycycline monohydrate 100 mg capsule 100 mg PO BID Qty: 20 0RF prednisone 20 mg tablet 20 mg PO BID Qty: 10 0RF albuterol sulfate [Ventolin HFA] 90 mcg/actuation HFA aerosol inhaler 2 puff inhalation Q4H PRN PRN (Reason: Wheezing) Qty: 1 0RF hydrocodone-acetaminophen [hydrocodone-acetaminophen] 5-325 mg tablet 1 tab PO Q6H PRN PRN (Reason: Pain) 3 Days Qty: 10 0RF naproxen 500 mg tablet 500 mg PO BID Qty: 14 0RF Primary Care Provider: Angela Whitman Referrals: Angela Whitman, [Primary Care Provider] - 3-5 Days if not improving Activity Restrictions/Additional Instructions: Plenty of fluids and rest cetyl get dehydrated. We hydrated you up with fluid here. Imodium as needed for your diarrhea. Follow-up with your doctor if not improving. Disposition Disposition: Home, Self Care
[2023-12-02 15:23] LABS: ALB/GLOB Ratio 0.9 RATIO (0.9-2.4); AST(SGOT) 35 U/L (15-37); Alanine Aminotransfer ALT/SGPT 27 U/L (13-56); Albumin, Serum 3.7 g/dL (3.2-5.0); Alkaline Phosphatase 87 U/L (45-117); Anion Gap 4 (5-15); BUN 9 mg/dL (7-18); BUN/Creat Ratio 10.1 RATIO (10-20); Calcium,Total 9.1 mg/dL (8.5-10.1); Chloride 108 mmol/L (98-107); Creatinine, Serum 0.89 mg/dL (0.55-1.02); EST Glomerular Filtration Rate 73 mL/min (>60); Est Glom Filt Rate - Afr Amer 88 mL/min (>60); Estimated Creatinine Clearance 94.56 ml/min; Globulin 3.9 g/dL (2.2-4.2); Glucose 101 mg/dL (74-106); Protein, Total 7.6 g/dL (6.4-8.2); Sodium Level 137 mmol/L (136-145)
[2023-12-02] MEDS: Loperamide 2 MG Capsule 4 MG PO (15:23)
[2023-12-02] MEDS: 0.9% Normal Saline (1000mL) 1,000 ML 1000 ML IV (15:23)
[2023-12-02] MEDS: Dicyclomine 10 MG Capsule 20 MG PO (15:23)
[2023-12-02 15:29] VITALS: BP 119/81; PULSE 83; RESP 16; O2SAT 99
[2023-12-02] MEDS: Ondansetron 4 MG/2 ML Vial IV (16:32)
[2023-12-02 17:56] VITALS: BP 137/74; PULSE 78; RESP 16; O2SAT 97
[2023-12-02 19:06] VITALS: BP 133/72; PULSE 78; RESP 16; O2SAT 97
== END 2023-12-02 19:20 | disposition home or self-care (01) ==
PROVIDERS: Emergency Provider Emergency Medicine; Visit Provider Emergency Medicine
DX: R19.7 Diarrhea, unspecified (principal); B34.9 Viral infection, unspecified; F17.210 Nicotine dependence, cigarettes, uncomplicated; G47.30 Sleep apnea, unspecified; Z23 Encounter for immunization; Z86.16 Personal history of COVID-19
CPT/HCPCS: 80053; 85025; 87493; 90471; 96361; 96374; 99285; J7030; A4216; J2405

== ENCOUNTER 2024-04-07 20:21 | Emergency (ER) | payer MEDICAID, SELFPAY ==
[2024-04-07 20:21] VITALS: BP 128/101; PULSE 133; RESP 16; TEMP 36.1; O2SAT 98; BMI 41.1
--- NOTE | 2024-04-07 20:45 | ED.RN ---
Pt walked out of her room and found in hallway. This RN tried to convince pt to go back to her room. Pt refused. Pt is not pink slipped, denies SI or HI, does not present as a threat to herself at this time. Pt's brother and boyfriend called. Pt's boyfriend answered and was updated on pt's activities.
--- NOTE | 2024-04-07 20:47 | EDS_ITS ---
<Statement entered by Carolyn Oswald MD - 04/07/24 22:27> I have personally performed a face to face assessment of the patient and have reviewed the YADIRA Note. Patient brought to the hospital by family reportedly secondary to psychiatric concerns. Patient was seen by Physicians junior administrative assistant but then immediately eloped from the emergency room prior to evaluation by an ED physician. I did not see or speak to the patient. Per reports from the PA, patient denied suicidal homicidal ideation. We notified crisis that the patient had been here and what her complaints have been as I do suspect that they will be involved in her care. She does reportedly follow with the counseling center but often misses her visits. HPI HPI - Psych History of Present Illness Chief Complaint: Mental Health Narrative Narrative: Patient presenting today after being dropped off by her brother with concerns for nayely. She reports that she checked herself out [facility]. She was admitted there on 04/02/2024 and reports that she willingly went there due to concerns for being manic. She denies any HI, SI, self-harm, hallucinations, and substance use. She reports that she does have an upcoming counseling appointment in April or May. [facility] Medical History Bipolar disorder COVID Sleep apnea Disc degeneration Home Medications ?Medication ?Instructions ?Recorded ?Last Taken ?Type tizanidine 4 mg tablet 4 mg PO BID PRN PRN Muscle Spasm 01/21/20 Unknown History hydroxyzine pamoate 25 mg capsule 25 mg PO TID 04/02/21 Unknown History omeprazole 20 mg capsule,delayed 20 mg PO DAILY 04/02/21 Unknown History release sertraline 100 mg tablet 100 mg PO DAILY 04/02/21 Unknown History varenicline 1 mg tablet (Chantix) 1 mg PO BID 04/02/21 Unknown History furosemide 40 mg tablet (Lasix) 40 mg PO DAILY #7 tabs 05/03/21 Unknown Rx doxycycline monohydrate 100 mg 100 mg PO BID #20 CAPSULES 08/25/23 Unknown Rx capsule prednisone 20 mg tablet 20 mg PO BID #10 tabs 08/25/23 Unknown Rx albuterol sulfate 90 mcg/actuation 2 puff inhalation Q4H PRN PRN 08/28/23 Unknown Rx aerosol inhaler (Ventolin HFA) Wheezing ##1 hydrocodone-acetaminophen 5-325mg 1 tab PO Q6H PRN PRN Pain 3 days 10/19/23 Unknown Rx 5mg-325mg #10 TABLETS naproxen 500 mg tablet 500 mg PO BID #14 tabs 10/19/23 Unknown Rx Allergy/AdvReac Type Severity Reaction Status Date / Time cefaclor (From Ceclor) Allergy Hives Verified 04/07/24 20:21 cephalexin monohydrate (From Allergy Hives Verified 04/07/24 20:21 Keflex) Penicillins (PCN) Allergy Hives Verified 04/07/24 20:21 Social History household members: spouse Smoking Status: Current every day smoker tobacco type: cigarettes substance use type: does not use ROS ROS ED Constitutional Constitutional ED: Denies chills or fever(s) Cardiovascular Cardiovascular: Denies chest pain Respiratory/Chest Respiratory/Chest: Denies dyspnea Gastrointestinal Gastrointestinal: Denies abdominal pain, nausea or vomiting Psychiatric Psychiatric: Denies hallucinations, homicidal ideation, suicidal ideation or suicidal thoughts EXAM Physical Exam Const Vital Signs: 04/07/24 20:21 Temperature 97 F L Temperature Source Temporal Pulse Rate 133 H Respiratory Rate 16 Blood Pressure 128/101 H Blood Pressure Mean 110 Pulse Ox 98 Positive well nourished, well developed and no apparent distress General Appearance ED: well developed HEENT Reports normocephalic and head/scalp atraumatic Mouth ED: Yes moist mucous membranes normal Eyes PERRL and EOMs intact bilaterally Neck full ROM and supple Chest Wall inspection of chest normal Resp normal respiratory effort and clear to auscultation bilaterally Cardio regular rate and regular rhythm GI soft to palpation, non-tender, non-distended and no masses Back/Spine normal ROM and normal to inspection Extremity normal to inspection and full ROM Neuro oriented x3, CN's II-XII intact bilaterally, moves all extremities, no focal motor deficits and no sensory deficits noted Sensorium / Orientation: awake and alert Psych mental status grossly normal and thought process normal Attitude: uncooperative Mood & Affect: flat affect Thought Content: No suicidality, No homicidality and No hallucination(s) Skin no rashes or lesions noted and no wounds MDM MDM MDM Narrative Medical decision making narrative: Patient presenting after being dropped off by her brother due to concerns for nayely. Recently admitted to [facility] and willingly discharged herself today. Her brother was not in the room for me to talk with him, he supposedly told the nurse that he had tried to call the police but they were not helpful and he brought her here with hopes that we could admit her again to a psychiatric facility. Initially, patient is trying to log onto the computer, she did have to be asked several times to step away from the computer and sit down. She denies HI, SI, and hallucinations. She reports that she willingly was admitted to psychiatric facility on 04/02. She reports that she does have an upcoming appointment with the counseling center. After I evaluated the patient, she elope from the emergency department within just a few minutes of me seeing her. She was not yet evaluated by the attending ED physician. I did consult crisis, they are aware of the patient but they do not have any recommendations. Discharge Plan Triage Chief Complaint: Mental Health ED Midlevel Provider: Taniya Hanks ED Provider: Provider,Ed Physician Dx/Rx/DC Orders Clinical Impression: Nayely Prescriptions: No Action tizanidine 4 MG tablet 4 mg PO BID PRN PRN (Reason: Muscle Spasm) sertraline 100 mg Tablet 100 mg PO DAILY omeprazole 20 mg Capsule,Delayed Release(Dr/Ec) 20 mg PO DAILY hydroxyzine pamoate 25 mg Capsule 25 mg PO TID Chantix 1 mg Tablet 1 mg PO BID furosemide [Lasix] 40 mg tablet 40 mg PO DAILY Qty: 7 0RF doxycycline monohydrate 100 mg capsule 100 mg PO BID Qty: 20 0RF prednisone 20 mg tablet 20 mg PO BID Qty: 10 0RF albuterol sulfate [Ventolin HFA] 90 mcg/actuation HFA aerosol inhaler 2 puff inhalation Q4H PRN PRN (Reason: Wheezing) Qty: 1 0RF hydrocodone-acetaminophen [hydrocodone-acetaminophen] 5-325 mg tablet 1 tab PO Q6H PRN PRN (Reason: Pain) 3 Days Qty: 10 0RF naproxen 500 mg tablet 500 mg PO BID Qty: 14 0RF Primary Care Provider: Angela Whitman Referrals: Angela Whitman DO [Primary Care Provider] - Print Language: Kosovan Disposition Disposition: Against Medical Advice Discharge Date/Time: 04/07/24 21:00
== END 2024-04-07 21:00 | disposition left against medical advice (07) ==
LOC: ED 20:46
PROVIDERS: Emergency Provider Emergency Medicine; Visit Provider Emergency Medicine
DX: F30.9 Manic episode, unspecified (principal); F17.210 Nicotine dependence, cigarettes, uncomplicated; G47.30 Sleep apnea, unspecified; Z86.16 Personal history of COVID-19
CPT/HCPCS: 99282

== ENCOUNTER 2024-04-08 15:26 | Emergency (ER) | payer MEDICAID, SELFPAY ==
[2024-04-08 15:27] VITALS: BP 123/76; PULSE 80; RESP 14; TEMP 36.6; O2SAT 100; BMI 41.1
--- NOTE | 2024-04-08 15:54 | EDS_ITS ---
HPI HPI - Psych History of Present Illness Chief Complaint: Mental Health Narrative Narrative: 48-year-old female presents from [facility] with suicide attempt. History and physical is limited secondary to the patient to be nonverbal at certain times, not willing to answer questions. It was reported that she was under arrest, and she took a piece of the bed apart and tried to kill herself while she was incarcerated. Patient relates history that she was at [facility] in a psychiatric facility for 6 to 7 days and signed herself out. She states that she had been drug-free and alcohol free. After her incident today of trying to kill herself with part of the bed, she was evaluated by pier worker who sent her to the emergency department for placement back into a psychiatric facility. [facility] Medical History Bipolar disorder COVID Sleep apnea Disc degeneration Home Medications ?Medication ?Instructions ?Recorded ?Last Taken ?Type omeprazole 20 mg capsule,delayed 20 mg PO DAILY 04/02/21 Unknown History release albuterol sulfate 90 mcg/actuation 2 puff inhalation Q4H PRN PRN 08/28/23 Unknown Rx aerosol inhaler (Ventolin HFA) Wheezing ##1 aripiprazole 5 mg tablet 5 mg PO DAILY 04/08/24 Unknown History buspirone 5 mg tablet 5 mg PO TID 04/08/24 Unknown History duloxetine 30 mg capsule,delayed 30 mg PO DAILY 04/08/24 Unknown History release gabapentin 100 mg capsule 100 mg PO TID 04/08/24 Unknown History loratadine 10 mg tablet 10 mg PO DAILY 04/08/24 Unknown History trazodone 50 mg tablet 50 mg PO QHS 04/08/24 Unknown History Allergy/AdvReac Type Severity Reaction Status Date / Time cefaclor (From Ceclor) Allergy Hives Verified 04/08/24 15:27 cephalexin monohydrate (From Allergy Hives Verified 04/08/24 15:27 Keflex) Penicillins (PCN) Allergy Hives Verified 04/08/24 15:27 Social History household members: spouse Smoking Status: Current every day smoker tobacco type: cigarettes substance use type: does not use ROS ROS ED ROS Narrative Constitutional: No fever, no chills. HEENT: No sore throat. No neck pain. No loss of vision. No rhinorrhea. Cardiovascular: No chest pain. No palpitations. No pedal edema. Respiratory: No cough, no shortness of breath. Abdominal: No abdominal pain. No nausea. No vomiting. Genitourinary: No dysuria. No hematuria. Musculoskeletal: No myalgias. No arthralgias. Neurologic: No headaches. No dizziness. No lightheadedness. Skin: No rash. No change in color. Psychiatric: Positive depression. No anxiety. Performed suicidal gesture. EXAM Physical Exam Narrative Exam Narrative: Afebrile. Vital signs noted. Regular rate and rhythm. Lungs clear to auscultation bilaterally. Abdomen soft nontender with normoactive bowel sounds. Neurological examination is nonfocal and nonlateralizing. Psychiatric examination shows periods of her performing avoidance and not answering questions. She does endorse depression, but denies suicidal ideation. Occasional flight of ideas. Const Vital Signs: 04/08/24 15:27 04/08/24 16:26 04/08/24 21:41 Temperature 97.9 F Temperature Source Temporal Pulse Rate 80 65 68 Respiratory Rate 14 16 16 Blood Pressure 123/76 H 121/72 H 145/75 H Blood Pressure Mean 91 88 98 Pulse Ox 100 99 98 Oxygen Delivery Method Room Air Room Air Room Air MDM MDM MDM Narrative Medical decision making narrative: I reviewed her prior records and her problem list. She has past medical history of bipolar disorder and nayely along with psychosis. Medical screening labs will be obtained, then crisis contacted. Patient does seem to have a preoccupation with her medical testing stating that they have taken multiple vials of her blood, she gave a urine sample but does not know if she is although she states her last menstrual period was at the beginning of the month. I reviewed her laboratory work and she has a normal white count of 9.7, hemoglobin 12.4, hematocrit 40.8, platelet count normal at 285, sodium is normal at 138 with potassium 3.6 and chloride 107. Glucose is 96 with a BUN normal at 9 and creatinine 0.81. Serum test is negative, ethyl alcohol is negative. Urine for drugs of abuse is still pending. At approximately 1700, I was informed by the RN, that the patient is beginning to escalate. On my [id number] examination, she was requesting water but reportedly dumped it on the floor. She wants to have a table in her room but when she was told that she is unable to have this, she started yelling and screaming and using expletives. She is not redirectable. For safety of the staff, and patient, I do feel she would benefit from Geodon 20 mg intramuscularly. In review of her urine for drugs of abuse, she is positive for cannabinoids. At this point in time, I do feel that she is medically cleared for evaluation by the crisis counselor/ready for placement as they had reportedly already evaluated her at the [facility]. She is pending placement in a psychiatric facility. At this point in time, patient will be signed out to the overnight physician to continue observation of this patient requiring placement in a psychiatric facility. She is in stable condition. History & Record Review Additional record(s) reviewed:: Prior labs (UDA previously positive for cannabinoids 3 years earlier) Lab Data Attestation: I reviewed the patient's lab results. Labs: Laboratory Results - last 24 hr 04/08/24 04/08/24 16:00 16:18 WBC 9.7 RBC 5.14 Hgb 12.4 Hct 40.8 MCV 79.4 L MCH 24.1 L MCHC 30.4 L RDW Std Deviation 60.2 H RDW Coeff of Camron 21.5 H Plt Count 285 MPV 10.6 Immature Gran % (Auto) 0.300 Neut % (Auto) 75.2 H Lymph % (Auto) 17.2 L [place] % (Auto) 7.0 Eos % (Auto) 0.0 Baso % (Auto) 0.3 Absolute Neuts (auto) 7.3 Absolute Lymphs (auto) 1.67 Nucleated RBC % 0 Differential Comment SCANNED Sodium 138 Potassium 3.6 Chloride 107 Carbon Dioxide 23.0 Anion Gap 8 BUN 9 Creatinine 0.81 Estim Creat Clear Calc 108.23 Est GFR (MDRD) Af Amer 97 Est GFR (MDRD) Non-Af 80 BUN/Creatinine Ratio 11.1 Glucose 96 Calcium 9.0 Total Bilirubin 0.70 AST 28 ALT 31 Alkaline Phosphatase 79 Total Protein 7.1 Albumin 3.9 Globulin 3.2 Albumin/Globulin Ratio 1.2 Serum , Qual NEGATIVE Urine Opiates Screen NEGATIVE Urine Methadone Screen NEGATIVE Ur Barbiturates Screen NEGATIVE Ur Phencyclidine Scrn NEGATIVE Ur Amphetamines Screen NEGATIVE MDMA (Ecstasy) Screen NEGATIVE U Benzodiazepines Scrn NEGATIVE Urine Cocaine Screen NEGATIVE U Cannabinoids Screen POSITIVE H Ur Drug Screen Comment Ethyl Alcohol < 3.0 Discharge Plan Triage Chief Complaint: Mental Health ED Provider: Carlos Wilkins Dx/Rx/DC Orders Prescriptions: No Action omeprazole 20 mg Capsule,Delayed Release(Dr/Ec) 20 mg PO DAILY albuterol sulfate [Ventolin HFA] 90 mcg/actuation HFA aerosol inhaler 2 puff inhalation Q4H PRN PRN (Reason: Wheezing) Qty: 1 0RF buspirone 5 mg tablet 5 mg PO TID trazodone 50 mg tablet 50 mg PO QHS gabapentin 100 mg capsule 100 mg PO TID loratadine 10 mg tablet 10 mg PO DAILY aripiprazole 5 mg tablet 5 mg PO DAILY duloxetine 30 mg capsule,delayed release(DR/EC) 30 mg PO DAILY Primary Care Provider: Angela Whitman Referrals: Angela Whitman, [Primary Care Provider] - Print Language: Bulgarian
[2024-04-08 15:59] VITALS: BMI 41.1
[2024-04-08 16:19] LABS: Absolute Lymphocyte Count 1.67 X10^3/uL (0.83-4.51); Absolute Neutrophil Count 7.3 X10^3/uL (2.0-7.7); Basophil# 0.03 X10^3/uL; Basophil% 0.3 % (0-1); Hematocrit 40.8 % (37-47); Hemoglobin 12.4 g/dL (12.0-15.0); Lymphocyte # 1.67 X10^3/ul (0.83-4.51); Lymphocyte % 17.2 % (19-41); Mean Corp Hgb Conc 30.4 g/dL (32-36); Mean Corpuscular Hgb 24.1 pg (27.0-32.0); Mean Corpuscular Volume 79.4 fL (81-99); Mean Platelet Vol. 10.6 fl (6.2-12.0); Monocyte# 0.68 X10^3/uL; NRBC Flagged by Analyzer 0 % (0-5); Neutrophil # 7.29 X10^3/uL (2.7-7.7); Neutrophil % 75.2 % (47-70); POSITIVE MORPHOLOGY YES; Platelet Count 285 K/mm3 (150-450); RBC Distribution Width CV 21.5 % (11.6-14.6); RBC Distribution Width SD 60.2 fl (35.1-43.9); Red Blood Count 5.14 M/mm3 (4.2-5.4); White Blood Count 9.7 K/mm3 (4.4-11.0)
[2024-04-08 16:26] VITALS: BP 121/72; PULSE 65; RESP 16; O2SAT 99
[2024-04-08 16:30] LABS: Differential Indicated SCAN CRITERIA MET
[2024-04-08 16:41] LABS: Alcohol, Blood (Medical)-Serum < 3.0 mg/dL
[2024-04-08 16:48] LABS: ALB/GLOB Ratio 1.2 RATIO (0.9-2.4); AST(SGOT) 28 U/L (15-37); Alanine Aminotransfer ALT/SGPT 31 U/L (13-56); Albumin, Serum 3.9 g/dL (3.2-5.0); Alkaline Phosphatase 79 U/L (45-117); Anion Gap 8 (5-15); BUN 9 mg/dL (7-18); BUN/Creat Ratio 11.1 RATIO (10-20); Chloride 107 mmol/L (98-107); Creatinine, Serum 0.81 mg/dL (0.55-1.02); EST Glomerular Filtration Rate 80 mL/min (>60); Est Glom Filt Rate - Afr Amer 97 mL/min (>60); Estimated Creatinine Clearance 108.23 ml/min; Globulin 3.2 g/dL (2.2-4.2); Glucose 96 mg/dL (74-106); Potassium 3.6 mmol/L (3.5-5.1); Protein, Total 7.1 g/dL (6.4-8.2); Sodium Level 138 mmol/L (136-145)
--- NOTE | 2024-04-08 16:53 | ED.RN ---
Addendum entered by Teri Frias 04/08/24 17:49: [facility] CALLED, CHART FAXED. Original Note: VIDYA FROM [facility] CALLED PRIOR TO PT ARRIVAL, STATING ASSESSMENT WAS DONE AT THE [facility]. ASSESSMENT TO BE FAXED TO [facility] ED, AND TO BE REFERRED FOR PLACEMENT. WHEN RESULTS COME BACK, CHART WILL BE FAXED TO CRISIS.
[2024-04-08 16:58] LABS: Internal QC Validated? YES +Cl - CLEAR BKGD; Pregnancy, Serum, hCG Quali. NEGATIVE Negative
[2024-04-08 16:59] LABS: Record Kit Lot#, Serum Preg. 735774
[2024-04-08 17:01] LABS: Differential Comment SCANNED
--- NOTE | 2024-04-08 17:07 | EKG12_ITS ---
Test Reason : Blood Pressure : / mmHG Vent. Rate : 079 BPM Atrial Rate : 079 BPM P-R Int : 106 ms QRS Dur : 074 ms QT Int : 388 ms P-R-T Axes : 008 061 043 degrees QTc Int : 444 ms Sinus rhythm with short AL Otherwise normal ECG Confirmed by LASHAE MARTINEZ, KARI ([id number]), order editor YULI BURTON ([id number]) on 04/11/2024 6:47:06 AM Referred By: Confirmed By:KARI BHARDWAJ MD
[2024-04-08] MEDS: Ziprasidone IM 20 MG/ML VIAL IM (17:09)
--- NOTE | 2024-04-08 17:13 | ED.RN ---
1708: The patient was given water per her request, but was denied a table due to SI precautions. The patient threw her water on the floor and continued to request a table despite multiple nurses explaining why it was not allowed or safe. The patient continued to verbally escalate screaming, give me a damn table, or I am going to leave, give me a table. She also continued to chant shit, damn, bitch and yell at passing employees and visitors. After multiple verbal attempts at deescalation, the patient began moving toward the edge of the bed and yelling louder. The provider was notified and an order for Geodon and an EKG was placed.
[2024-04-08 17:14] LABS: Amphetamine Urine VISTA NEGATIVE (<1000 ng/mL); Barbiturate Urine VISTA NEGATIVE (< 200 ng/mL); Benzodiazepine Urine VISTA NEGATIVE (< 200 ng/mL); Cocaine Urine VISTA NEGATIVE (< 300 ng/mL); Ecstacy Urine VISTA NEGATIVE (< 500 ng/mL); Methadone Urine VISTA NEGATIVE (< 300 ng/mL); PCP Urine VISTA NEGATIVE (< 25 ng/mL); THC Urine VISTA POSITIVE (< 50 ng/mL); Vista UDS pH Range 6
[2024-04-08] MEDS: Gabapentin 100 MG Capsule PO (21:27)
[2024-04-08] MEDS: busPIRone 5 MG Tablet PO (21:27)
[2024-04-08 21:41] VITALS: BP 145/75; PULSE 68; RESP 16; O2SAT 98
[2024-04-09] MEDS: traZODone 50 MG Tablet PO (00:21)
--- NOTE | 2024-04-09 01:31 | ED.RN ---
0128: report called to McclurePanchito Lam LPN.
[2024-04-09] MEDS: Gabapentin 100 MG Capsule PO (07:00)
[2024-04-09] MEDS: busPIRone 5 MG Tablet PO (07:00)
[2024-04-09 07:01] VITALS: BP 121/65; PULSE 88; RESP 16; TEMP 36.1; O2SAT 95
[2024-04-09 07:28] VITALS: BP 120/60; PULSE 84; RESP 16; O2SAT 97
[2024-04-09 08:11] VITALS: BP 120/60; PULSE 84; RESP 16; TEMP 36.6; O2SAT 99
== END 2024-04-09 08:19 ==
LOC: ED 16:28
PROVIDERS: Emergency Provider Emergency Medicine; Visit Provider Emergency Medicine
DX: F31.9 Bipolar disorder, unspecified (principal); F17.210 Nicotine dependence, cigarettes, uncomplicated; G47.30 Sleep apnea, unspecified; Z86.16 Personal history of COVID-19
CPT/HCPCS: 80053; 80307; 80320; 84703; 85025; 87631; 93005; 99285; G0480

== ENCOUNTER 2025-09-06 07:44 | Emergency (ER) | payer MEDICAID, SELFPAY ==
[2025-09-06 07:46] VITALS: BP 129/71; PULSE 99; RESP 20; TEMP 36.7; O2SAT 97; BMI 40.5
--- NOTE | 2025-09-06 07:54 | RAD_ITS ---
PROCEDURE: RAD/Chest 1 View (Portable)
--- NOTE | 2025-09-06 07:55 | ED.VIS.DYS ---
HPI History of Present Illness Chief Complaint: Shortness of Breath Detail of Chief Complaint: Cough and shortness of breath Informant: patient Narrative Narrative: Patient presents to the emergency department complaint of cough that been going on for 2 weeks. She was seen in urgent care last week and started on prednisone and doxycycline. She continues to cough. She also has an inhaler and was given Tessalon Perles. She feels like she needs a breathing treatment. She has history of smoking but denies COPD or emphysema history. Denies history of asthma. She denies fevers. Cough mostly nonproductive. She denies chest pain. She denies recent travel or surgery. Patient currently staying in a halfway and multiple sick contacts there. PE Risk Factors: Negative for Prior DVT or PE, Recent immobilization, Recent surgery or Recent travel [facility] Medical History (Updated 09/06/25 @ 08:[address] Olive Mcgovern, DO) Anxiety Depression GERD (gastroesophageal reflux disease) Smoker Bipolar disorder COVID Sleep apnea Disc degeneration Home Medications ?Medication ?Instructions ?Recorded ?Last Taken ?Type omeprazole 20 mg capsule,delayed 20 mg PO DAILY 04/02/21 Unknown History release albuterol sulfate 90 mcg/actuation 2 puff inhalation Q4H PRN PRN 08/28/23 Unknown Rx aerosol inhaler (Ventolin HFA) Wheezing ##1 aripiprazole 5 mg tablet 5 mg PO DAILY 04/08/24 Unknown History buspirone 5 mg tablet 5 mg PO TID 04/08/24 Unknown History duloxetine 30 mg capsule,delayed 30 mg PO DAILY 04/08/24 Unknown History release gabapentin 100 mg capsule 100 mg PO TID 04/08/24 Unknown History loratadine 10 mg tablet 10 mg PO DAILY 04/08/24 Unknown History trazodone 50 mg tablet 50 mg PO QHS 04/08/24 Unknown History Allergy/AdvReac Type Severity Reaction Status Date / Time cefaclor (From Ceclor) Allergy Hives Verified 09/06/25 07:49 cephalexin monohydrate (From Allergy Hives Verified 09/06/25 07:49 Keflex) Penicillins (PCN) Allergy Hives Verified 09/06/25 07:49 Surgical History (Updated 09/06/25 @ 07:57 by Afia Ramsey) History of cholecystectomy Social History household members: spouse Smoking Status: Current every day smoker tobacco type: cigarettes substance use type: does not use ROS ROS ED Constitutional Constitutional ED: Reports systems reviewed and no addt'l complaints, except as documented; Denies body ache(s), change in weight or chills Eyes Eyes: Denies acute decrease in peripheral vision, change in vision, double vision or loss of vision ENT ENT ED: Reports none; Denies ear pain, lip swelling, loss taste/smell, neck pain, otalgia or sore throat Cardiovascular Cardiovascular: Reports none; Denies abdominal pain, chest pain, chest pain with activity, leg edema, lightheadedness, palpitations, racing heartbeat, rapid heart rate or syncope Respiratory/Chest Respiratory/Chest: Reports none, dry cough and shortness of breath with exertion; Denies change in mental status, dyspnea, hemoptysis or shortness of breath at rest Gastrointestinal Gastrointestinal: Reports none; Denies abdominal pain, change in stool character, diarrhea, hematemesis, hematochezia, melena, rectal bleeding or vomiting Genitourinary Genitourinary ED: Reports none; Denies abdominal discomfort, anuria, dysuria, genital pain or polyuria Musculoskeletal Musculoskeletal: Reports none; Denies arthralgias, back pain, difficulty walking, extremity pain, muscle weakness or myalgias Integumentary Reports none; Denies abscess or rash Neurologic Neurologic: Reports none; Denies abnormal gait, confusion, focal weakness, frequent falls, headache(s), loss of vision, numbness, paresthesias, radicular pain, vertigo or weakness Psychiatric Psychiatric: Reports systems reviewed and no addt'l complaints, except as documented and none; Denies behavioral changes, confusion, difficulty concentrating, hallucinations, suicidal ideation, tactile hallucinations or visual hallucinations Endocrine Endocrinology: Denies none, cold intolerance, excessive sweating, fatigue or heat intolerance Hematologic/Lymphatic Hematologic/Lymphatic: Reports none; Denies anemia, easy bleeding or easy bruising Allergic/Immunologic Allergic/Immunologic ED: Denies as per HPI, none, lip swelling, mouth swelling, throat swelling, tongue swelling or hives EXAM Physical Exam Const Vital Signs: 09/06/25 07:46 09/06/25 07:56 09/06/25 08:06 Temperature 98.1 F Temperature Source Oral Pulse Rate 99 90 Respiratory Rate 20 H 12 Respiratory Effort Normal Respiratory Pattern Normal Blood Pressure 129/71 H Blood Pressure Mean 90 Pulse Ox 97 Oxygen Delivery Method Room Air Room Air Positive well nourished and well developed General Appearance ED: well developed and NAD HEENT Reports TM's clear and moist mucous membranes normocephalic and atraumatic; Negative for trauma or tenderness Tympanic Membrane ED: Yes TM's clear Eyes PERRL and EOMs intact bilaterally General Eye ED: Negative for pale conjunctiva or scleral icterus Neck no lymphadenopathy, supple and no JVD General: Negative for tenderness Chest Wall inspection of chest normal and palpation of chest normal Chest: Negative for tenderness Resp normal respiratory effort and clear to auscultation bilaterally Effort and Inspection: Negative for respiratory distress or pain with movement Auscultation: wheezes; Negative for rhonchi or diminished lung sounds Cardio regular rate, regular rhythm, S1 normal heart sound, S2 normal heart sound and no murmurs Peripheral Pulses: pulses 2+ throughout GI normal to inspection, nondistended, normoactive bowel sounds, soft to palpation, non-tender, non-distended and no masses Back/Spine no CVA tenderness and no thoracic nor lumbar tenderness Extremity normal to inspection General Extremety ED: Negative for edema General Extremity: Negative for edema Neuro oriented x3, CN's II-XII intact bilaterally, no sensory deficits noted and gait normal Sensorium / Orientation: awake, alert, oriented to person, oriented to place and oriented to time Motor Exam: strength 5/5 throughout and strength abnormal Psych mental status grossly normal Skin no rashes or lesions noted and no wounds MDM MDM MDM Narrative Medical decision making narrative: Patient presents with a cough x 2 weeks. History of smoking. Patient currently on doxycycline. She finished prednisone that she was on for 7 days 2 or 3 days ago. She has an inhaler. Vital signs essentially unremarkable. I did obtain a chest x-ray that showed no acute disease process and there was no evidence of infiltrate or pneumothorax. Patient was given a DuoNeb aerosol. Discussed results with patient. She states the Tessalon Perles she had been on did not help her and does not want anymore. I do not feel steroids are further indicated at this point. She is to continue to use her inhaler as needed for wheezing. Advised to follow-up with primary care physician within next 5 to 7 days. Suspect likely viral asthmatic bronchitis. She is advised to quit smoking. Radiography Diagnostic Testing: Clinical Impression(s) from Imaging Studies Chest X-Ray 09/06/25 07:54 IMPRESSION: No acute process is identified in the chest. Reading Location: [facility] 1 view chest x-ray obtained interpreted by myself as no evidence of infiltrate or pneumothorax or acute disease process. Radiology in agreement. Discharge Plan Triage Chief Complaint: Shortness of Breath ED Provider: Olive Mcgovern Dx/Rx/DC Orders Clinical Impression: Asthmatic bronchitis Instructions: ED Bronchitis with Wheezing (Adult) Prescriptions: No Action omeprazole 20 mg Capsule,Delayed Release(Dr/Ec) 20 mg PO DAILY albuterol sulfate [Ventolin HFA] 90 mcg/actuation HFA aerosol inhaler 2 puff inhalation Q4H PRN PRN (Reason: Wheezing) Qty: 1 0RF buspirone 5 mg tablet 5 mg PO TID trazodone 50 mg tablet 50 mg PO QHS gabapentin 100 mg capsule 100 mg PO TID loratadine 10 mg tablet 10 mg PO DAILY aripiprazole 5 mg tablet 5 mg PO DAILY duloxetine 30 mg capsule,delayed release(DR/EC) 30 mg PO DAILY Primary Care Provider: Angela Whitman Referrals: Angela Whitman DO [Primary Care Provider, Family Practice] - 3-5 Days Print Language: Egyptian Disposition Disposition: Home, Self Care
[2025-09-06 08:06] VITALS: PULSE 90; RESP 12
[2025-09-06 08:41] VITALS: BP 133/86; PULSE 93; RESP 20; TEMP 36.9; O2SAT 97
== END 2025-09-06 08:44 | disposition home or self-care (01) ==
PROVIDERS: Emergency Provider Emergency Medicine; Visit Provider Emergency Medicine
DX: J45.909 Unspecified asthma, uncomplicated (principal); Z59.01 Sheltered homelessness; F17.210 Nicotine dependence, cigarettes, uncomplicated; R06.02 Shortness of breath; K21.9 Gastro-esophageal reflux disease without esophagitis; Z79.899 Other long term (current) drug therapy; F41.9 Anxiety disorder, unspecified; F32.A Depression, unspecified; Z90.49 Acquired absence of other specified parts of digestive tract
CPT/HCPCS: 71045; 94640; 99282